=== PATIENT | male | born 1990 | race Caucasian/White ===

== ENCOUNTER 2017-08-15 19:19 | Inpatient (IN) ==
[~2017-08-15 19:19] MED LIST: *HR* Etomidate 40 MG/20 ML VIAL IVP ONE; *HR* Midazolam HCl 5 MG/5 ML VIAL IVP ONE; *HR* Succinylcholine 200 MG/10 ML VIAL IVP ONE
[2017-08-15] MEDS ORDERED: 0.9 % Sodium Chloride 2,000 ML ONE (19:28)
[2017-08-15] MEDS ORDERED: Propofol 500 MG/50 ML INFUS..BTL ONE ×2 (19:36→22:58)
[2017-08-15] MEDS ORDERED: *HR* LORazepam 2 MG/ML VIAL ONE ×2 (19:51→20:44)
--- NOTE | 2017-08-15 19:58 | Emergency Department Note ---
Overdose - [facility] Narrative Medical decision making narrative: Patient presented with acute altered mental status. Patient was supposedly in a drug bust earlier today. No notable ingestion for law enforcement however ingestion of unknown substance possibly occurred. Patient was intubated upon arrival after a GCS of 3. Patient presented more with a sympathomimetic toxidrome cocaine and methamphetamines were high on the differential. Patient was diaphoretic tachycardic hyperthermic and hypotensive. Patient's pupillary exam revealed a mid dilated pupils which were minimally reactive. Patient received 4 L of crystalloid total and transition to twice maintenance IV rate. Patient's pharyngeal includes infectious versus metabolic versus substance abuse. Patient was covered with meningitic dosing of antibiotics, antivirals as well as steroids. Patient was also given IV Tylenol. Patient was given multiple doses of benzodiazepines. Ultimately the patient was on low-dose propofol drip. Multiple attempts were unsuccessful at Baird catheter placement and urology was at bedside to provide cystoscopic view and passed a Baird catheter. Patient did get a right internal jugular central venous line placed due to the excessive resuscitation. Patient will also need a head CT however spoke with the hospitalist who accepted the patient. Patient urine drug screen did come back for methamphetamine and marijuana. Patient also positive for benzodiazepines however that was possibly administered during this ED stay. - Lab Data Lab results reviewed: Yes I reviewed the patient's lab results. Result diagrams: 08/15/17 19:41 08/15/17 19:41 Lab Results 08/15/17 08/15/17 08/15/17 Range/Units 19:41 19:41 19:41 WBC 16.2 H (4.3-11.1) K/mcL RBC 5.28 (4.19-5.50) M/mcL Hgb 15.2 (12.9-16.9) g/dL Hct 47.2 (37.5-50.1) % MCV 89.4 (83.0-100.0) fL MCH 28.8 (28.0-33.3) pg MCHC 32.2 (31.6-35.5) g/dL RDW 12.6 (11.5-14.5) % Plt Count 333 (140-400) K/mcL MPV 11.2 (9.4-12.4) fL Immature Gran % 3.1 (0-4) % Seg Neutrophils % 77.2 % Lymphocytes % 13.5 % Monocytes % 5.5 % Eosinophils % 0.1 % Basophils % 0.6 % Neutrophils # 12.5 H (1.6-8.9) K/mcL Lymphocytes # 2.2 (0.6-4.6) K/mcL Monocytes # 0.9 (0.0-1.3) K/mcL Eosinophils # 0.0 (0.0-0.6) K/mcL Basophils # 0.1 (0.0-0.2) K/mcL PT (9.4-12.1) Seconds INR APTT (26.0-36.0) Seconds ABG pH (7.32-7.45) pH Units ABG pCO2 (35-45) mmHg ABG pO2 (85-104) mmHg ABG HCO3 (21-27) mEq/L ABG Total CO2 (20-26) mEq/L ABG O2 Saturation (95-98) % ABG Base Excess (-2 to 3) mEq/L Respiration Rate O2 Delivery Device Blood Gas Modality Inspired O2 (1-15=lpm [id number]=%) Tidal Volume cc PEEP cm H2O Sodium 144 (136-145) mEq/L Potassium 5.1 (3.5-5.1) mEq/L Chloride 99 (98-107) mEq/L Carbon Dioxide 20 L (23-29) mEq/L BUN 26 H (6-20) mg/dL Creatinine 2.09 H (0.70-1.30) mg/dL Est GFR ( Amer) 47 L (> 60) Est GFR (Non-Af Amer) 39 L (> 60) BUN/Creatinine Ratio 12 (6-26) Glucose 91 (70-105) mg/dL Calculated Osmolality 302 H (280-300) Lactic Acid (0.5-2.2) mmol/L Calcium 10.1 (8.6-10.3) mg/dL Total Bilirubin 0.4 (0.3-1.0) mg/dL Direct Bilirubin 0.1 (0.0-0.2) mg/dL Indirect Bilirubin 0.3 (0.0-1.2) mg/dL AST 25 (13-39) Units/L ALT 26 (7-52) Units/L Alkaline Phosphatase 71 (34-104) Units/L Creatine Kinase 424 H (30-223) Units/L Troponin I 0.11 H* (< 0.04) ng/mL Serum Total Protein 8.4 (6.4-8.9) g/dL Albumin 5.1 (3.5-5.7) g/dL Globulin 3.3 (2.4-3.5) g/dL Albumin/Globulin Ratio 1.5 (1.1-2.2) Ur Specimen Adequacy Urine Color (Yellow) Urine Clarity (Clear) Urine pH (5.0-8.0) pH Units Ur Specific [place] (1.010-1.025) Urine Protein (Neg-Trace) mg/dL Urine Glucose (UA) (Normal) mg/dL Urine Ketones (Negative) mg/dL Urine Blood (Negative) Urine Nitrite (Negative) Urine Bilirubin (Negative) Urine Urobilinogen (Normal) mg/dL Ur Leukocyte Esterase (Negative) Urine Microscopic RBC (0-3) per hpf Urine Microscopic WBC (0-3) per hpf Urine Bacteria (None-Few) per hpf Salicylates < 5.0 L (15.0-30.0) mg/dL Urine Opiates Screen (Tpxcel=615) ng/mL Acetaminophen < 1.0 L (10-30) mcg/mL Ur Barbiturates Screen (Raohxd=952) ng/mL Ur Phencyclidine Scrn (Cutoff=25) ng/mL Ur Amphetamines Screen (Rptzfs=3833) ng/mL U Benzodiazepines Scrn (Qorxec=415) ng/mL Urine Cocaine Screen (Cutoff= 300) ng/mL U Marijuana (THC) Screen (Cutoff = 50) ng/mL Ethyl Alcohol < 10 (0-10) mg/dL 08/15/17 08/15/17 08/15/17 Range/Units 19:41 20:03 20:15 WBC (4.3-11.1) K/mcL RBC (4.19-5.50) M/mcL Hgb (12.9-16.9) g/dL Hct (37.5-50.1) % MCV (83.0-100.0) fL MCH (28.0-33.3) pg MCHC (31.6-35.5) g/dL RDW (11.5-14.5) % Plt Count (140-400) K/mcL MPV (9.4-12.4) fL Immature Gran % (0-4) % Seg Neutrophils % % Lymphocytes % % Monocytes % % Eosinophils % % Basophils % % Neutrophils # (1.6-8.9) K/mcL Lymphocytes # (0.6-4.6) K/mcL Monocytes # (0.0-1.3) K/mcL Eosinophils # (0.0-0.6) K/mcL Basophils # (0.0-0.2) K/mcL PT 13.2 H (9.4-12.1) Seconds INR 1.2 APTT 25.9 L (26.0-36.0) Seconds ABG pH 7.28 L (7.32-7.45) pH Units ABG pCO2 47 H (35-45) mmHg ABG pO2 67 L (85-104) mmHg ABG HCO3 22 (21-27) mEq/L ABG Total CO2 23 (20-26) mEq/L ABG O2 Saturation 90 L (95-98) % ABG Base Excess -5 L (-2 to 3) mEq/L Respiration Rate 14 O2 Delivery Device Adult Vent Blood Gas Modality ASSIST CONTROL Inspired O2 60.0 (1-15=lpm [id number]=%) Tidal Volume 550 cc PEEP 5 cm H2O Sodium (136-145) mEq/L Potassium (3.5-5.1) mEq/L Chloride (98-107) mEq/L Carbon Dioxide (23-29) mEq/L BUN (6-20) mg/dL Creatinine (0.70-1.30) mg/dL Est GFR ( Amer) (> 60) Est GFR (Non-Af Amer) (> 60) BUN/Creatinine Ratio (6-26) Glucose (70-105) mg/dL Calculated Osmolality (280-300) Lactic Acid 9.6 H* (0.5-2.2) mmol/L Calcium (8.6-10.3) mg/dL Total Bilirubin (0.3-1.0) mg/dL Direct Bilirubin (0.0-0.2) mg/dL Indirect Bilirubin (0.0-1.2) mg/dL AST (13-39) Units/L ALT (7-52) Units/L Alkaline Phosphatase (34-104) Units/L Creatine Kinase (30-223) Units/L Troponin I (< 0.04) ng/mL Serum Total Protein (6.4-8.9) g/dL Albumin (3.5-5.7) g/dL Globulin (2.4-3.5) g/dL Albumin/Globulin Ratio (1.1-2.2) Ur Specimen Adequacy Urine Color (Yellow) Urine Clarity (Clear) Urine pH (5.0-8.0) pH Units Ur Specific [place] (1.010-1.025) Urine Protein (Neg-Trace) mg/dL Urine Glucose (UA) (Normal) mg/dL Urine Ketones (Negative) mg/dL Urine Blood (Negative) Urine Nitrite (Negative) Urine Bilirubin (Negative) Urine Urobilinogen (Normal) mg/dL Ur Leukocyte Esterase (Negative) Urine Microscopic RBC (0-3) per hpf Urine Microscopic WBC (0-3) per hpf Urine Bacteria (None-Few) per hpf Salicylates (15.0-30.0) mg/dL Urine Opiates Screen (Gvvgwu=778) ng/mL Acetaminophen (10-30) mcg/mL Ur Barbiturates Screen (Aetyun=867) ng/mL Ur Phencyclidine Scrn (Cutoff=25) ng/mL Ur Amphetamines Screen (Ysrcla=3380) ng/mL U Benzodiazepines Scrn (Tdirwz=968) ng/mL Urine Cocaine Screen (Cutoff= 300) ng/mL U Marijuana (THC) Screen (Cutoff = 50) ng/mL Ethyl Alcohol (0-10) mg/dL 08/15/17 08/15/17 Range/Units 22:14 22:14 WBC (4.3-11.1) K/mcL RBC (4.19-5.50) M/mcL Hgb (12.9-16.9) g/dL Hct (37.5-50.1) % MCV (83.0-100.0) fL MCH (28.0-33.3) pg MCHC (31.6-35.5) g/dL RDW (11.5-14.5) % Plt Count (140-400) K/mcL MPV (9.4-12.4) fL Immature Gran % (0-4) % Seg Neutrophils % % Lymphocytes % % Monocytes % % Eosinophils % % Basophils % % Neutrophils # (1.6-8.9) K/mcL Lymphocytes # (0.6-4.6) K/mcL Monocytes # (0.0-1.3) K/mcL Eosinophils # (0.0-0.6) K/mcL Basophils # (0.0-0.2) K/mcL PT (9.4-12.1) Seconds INR APTT (26.0-36.0) Seconds ABG pH (7.32-7.45) pH Units ABG pCO2 (35-45) mmHg ABG pO2 (85-104) mmHg ABG HCO3 (21-27) mEq/L ABG Total CO2 (20-26) mEq/L ABG O2 Saturation (95-98) % ABG Base Excess (-2 to 3) mEq/L Respiration Rate O2 Delivery Device Blood Gas Modality Inspired O2 (1-15=lpm qd45-019=%) Tidal Volume cc PEEP cm H2O Sodium (136-145) mEq/L Potassium (3.5-5.1) mEq/L Chloride (98-107) mEq/L Carbon Dioxide (23-29) mEq/L BUN (6-20) mg/dL Creatinine (0.70-1.30) mg/dL Est GFR ( Amer) (> 60) Est GFR (Non-Af Amer) (> 60) BUN/Creatinine Ratio (6-26) Glucose (70-105) mg/dL Calculated Osmolality (280-300) Lactic Acid (0.5-2.2) mmol/L Calcium (8.6-10.3) mg/dL Total Bilirubin (0.3-1.0) mg/dL Direct Bilirubin (0.0-0.2) mg/dL Indirect Bilirubin (0.0-1.2) mg/dL AST (13-39) Units/L ALT (7-52) Units/L Alkaline Phosphatase (34-104) Units/L Creatine Kinase (30-223) Units/L Troponin I (< 0.04) ng/mL Serum Total Protein (6.4-8.9) g/dL Albumin (3.5-5.7) g/dL Globulin (2.4-3.5) g/dL Albumin/Globulin Ratio (1.1-2.2) Ur Specimen Adequacy Urine Color Red A (Yellow) Urine Clarity Cloudy A (Clear) Urine pH 6.0 (5.0-8.0) pH Units Ur Specific [place] 1.024 (1.010-1.025) Urine Protein 100 H (Neg-Trace) mg/dL Urine Glucose (UA) Normal (Normal) mg/dL Urine Ketones Negative (Negative) mg/dL Urine Blood Large H (Negative) Urine Nitrite Negative (Negative) Urine Bilirubin Negative (Negative) Urine Urobilinogen Normal (Normal) mg/dL Ur Leukocyte Esterase Small H (Negative) Urine Microscopic RBC TNTC H (0-3) per hpf Urine Microscopic WBC 0-3 (0-3) per hpf Urine Bacteria Few (None-Few) per hpf Salicylates (15.0-30.0) mg/dL Urine Opiates Screen Negative (Kzrdmn=547) ng/mL Acetaminophen (10-30) mcg/mL Ur Barbiturates Screen Negative (Vbouyw=560) ng/mL Ur Phencyclidine Scrn Negative (Cutoff=25) ng/mL Ur Amphetamines Screen Positive H (Lolfdl=4677) ng/mL U Benzodiazepines Scrn Positive H (Yayzly=204) ng/mL Urine Cocaine Screen Negative (Cutoff= 300) ng/mL U Marijuana (THC) Screen Positive H (Cutoff = 50) ng/mL Ethyl Alcohol (0-10) mg/dL - Radiology Data Radiology results reviewed: Yes I reviewed the patient's radiology results. KUB X-Ray 08/15/17 19:58 IMPRESSION: 1. Endotracheal tube tip is in the expected location, superimposed over the mid trachea. 2. Nasogastric tube tip is in the expected location, superimposed over the gastric antrum. However, the side port is at the level the gastroesophageal junction. For more optimal placement, nasogastric tube should be advanced approximately 3-4 cm to ensure that the side port is inferior to the GE junction. D/ / Elder Sierra MD / Elder Sierra MD Interpreting Provider: Elder Sierra MD Chest X-Ray 08/15/17 21:21 IMPRESSION: A right internal jugular venous catheter has been placed in good position. Nasogastric tube is now in good position. D/ / Case Schuster MD / Case Schuster MD Interpreting Provider: Case Schuster MD - EKG Data EKG attestation: Yes I reviewed and interpreted this EKG. EKG shows normal: sinus rhythm Rate: tachycardia [place]/QRS: normal When compared to previous EKG there are: changes noted Interpretation: nonspecific ST-T wave changes Overdose HPI - General Chief Complaint: ED Overdose Stated Complaint: "OD" Source: EMS, police Mode of arrival: EMS Limitations: altered mental status Nursing Notes Reviewed: Yes Vital Signs Reviewed: Yes - History of Present Illness HPI Narrative: 27-year-old male presents via EMS for altered mental status. Much of the history provided by law enforcement as well as EMS. Patient was arrested on drug raid earlier today. Patient was in gen pop and started have and acute alteration in mental status. On ED presentation the patient was altered with a GCS of 3. Patient's glucose is normal. Patient was intubated upon ED arrival given his low GCS and concerns for airway protection. Patient exhibited no external signs of trauma. There is no family or friends at bedside to provide additional history. Concerns the patient did ingest something while in police custody. - Related Data Previous Rx's Medication Instructions Recorded Ibuprofen [Motrin] 800 mg PO Q6-8H PRN #30 tablet 01/30/16 Tamsulosin [Flomax] 0.4 mg PO DAILY #5 capsule 01/30/16 cephALEXin [Keflex] 500 mg PO TID #21 capsule 01/30/16 Amoxicillin/Clavulanate [Augmentin] 875 mg PO BID #14 tablet 05/09/16 Allergies Allergy/AdvReac Type Severity Reaction Status Date / Time No Known Allergies Allergy Verified 05/09/16 04:47 Limitations: ROS unobtainable due to patients medical condition Past Medical History - Past Medical History Source: unable to obtain Medical history: Reports: non-contributory Surgical history: Reports: no surgical history Psychiatric history: Reports: ADHD - Social History Smoking Status: Current every day smoker Smokeless Tobacco Status: Yes Alcohol use: Reports: occasionally Drug use: Reports: none Physical Exam - General Limitations: altered mental status General appearance: in distress - Head Head exam: atraumatic, normocephalic, normal inspection - Eye Eye exam: Present: PERRL. Absent: miosis, mydriasis - ENT ENT exam: normal exam, mucous membranes moist, other (Mucous ) - Neck Neck exam: Present: normal inspection - Chest Chest inspection: Present: normal inspection - Respiratory Respiratory exam: Present: prolonged expiratory phase - Cardiovascular Cardiovascular exam: Present: tachycardia. Absent: systolic murmur - Abdominal Exam Abdominal exam: Present: soft - Extremities Exam Extremities exam: Present: normal inspection. Absent: pedal edema - Back Exam Back exam: Present: normal inspection - Expanded Neurological Exam Coma Scale Eye Opening: None Coma Scale Motor Response: None Coma Scale Verbal Response: None Coma Scale Total: 3 - Skin Skin exam: Present: warm, normal color, diaphoresis Course Course Narrative: Patient seen and examined. EMS as well as long for some report that the patient was arrested on a drug bust. Law enforcment note that he possibly ingested or stuffed a drug. - Reevaluation(s) Reevaluation #1: Patient was given total 5 mg of Versed 4 mg of Ativan. Patient is currently on his 4 L of crystalloid. Time: 20:29 Reevaluation #2: Given the patient's lab findings the patient will be covered with broad- spectrum antibiotics. Patient will be given meningitic dosing of vancomycin and Rocephin. Patient will also be given Zosyn. Patient is not currently stable to perform a lumbar puncture. Patient had a rectal temperature of 105 degrees. Patient was ordered IV Tylenol. Time: 20:35 Vital Signs Pulse Rate 154 08/15/17 19:19 Respiratory Rate 25 08/15/17 19:19 Blood Pressure 85/49 08/15/17 19:19 O2 Sat by Pulse Oximetry 89 08/15/17 19:19 Temperature 102.1 F H 08/15/17 19:40 Pulse Rate 124 08/15/17 22:36 Respiratory Rate 20 08/15/17 22:36 Blood Pressure 103/64 08/15/17 22:36 O2 Sat by Pulse Oximetry 98 08/15/17 22:36 Oxygen Delivery Oxygen Delivery Ventilator Procedures - Intubation Time out performed: No sedative: Etomidate Mg Given: 20 paralytic: Succinylcholine Mg Given: 110 Laryngoscope: Yusuf ET Tube Size: 7.5 ET Tube Uncuffed: Yes Tube Secured Depth (cm): 23 Tube Secured Location: lips Tube Placement Confirmation: visualized tube passing through cords, equal breath sounds bilaterally, no breath sounds over epigastrium, confirmation by capnometry Patient Tolerated Procedure: well Intubation Complications: none Disposition Clinical Impression: Substance abuse, Elevated troponin, Septic shock Disposition: Admitted As Inpatient Condition: Critical Referrals: NONE,PCP [Primary Care Provider] - Forms: ED Satisfaction Letter Time of Disposition: 22:18 SMal - Adam Situation: Demographics Background: Presenting Complaint Assessment: Vital Signs, Course and respsone to treatment, Patient/Family Expectation Recommendation: Barrier(s) to disposition, Recommendation based on pending studies, treatments, or consults S.[email or web address].RMarcela Report Given to: Dr. Francisco Medina Repor Time: 22:16
[2017-08-15 20:04] LABS: Basophils # 0.1 K/mcL (0.0-0.2); Basophils % 0.6 %; Eosinophils % 0.1 %; Hematocrit 47.2 % (37.5-50.1); Hemoglobin 15.2 g/dL (12.9-16.9); Immature Granulocytes % 3.1 % (0-4); Lymphocytes # 2.2 K/mcL (0.6-4.6); Lymphocytes % 13.5 %; Mean Corpuscular HGB Conc 32.2 g/dL (31.6-35.5); Mean Corpuscular Hemoglobin 28.8 pg (28.0-33.3); Mean Corpuscular Volume 89.4 fL (83.0-100.0); Mean Platelet Volume 11.2 fL (9.4-12.4); Monocytes # 0.9 K/mcL (0.0-1.3); Monocytes % 5.5 %; Neutrophils # 12.5 K/mcL (1.6-8.9); Platelet Count 333 K/mcL (140-400); Red Blood Count 5.28 M/mcL (4.19-5.50); Red Cell Distribution Width 12.6 % (11.5-14.5); Segmented Neutrophils % 77.2 %
[2017-08-15] MEDS ORDERED: 0.9 % Sodium Chloride 1,000 ML IVC ONE ×2 (20:04→20:16)
[2017-08-15 20:11] LABS: Alanine Aminotransferase 26 Units/L (7-52); Albumin 5.1 g/dL (3.5-5.7); Albumin/Globulin Ratio 1.5 (1.1-2.2); Alkaline Phosphatase 71 Units/L (34-104); Aspartate Amino Transferase 25 Units/L (13-39); BUN/Creatinine Ratio 12 (6-26); Bilirubin,Direct 0.1 mg/dL (0.0-0.2); Bilirubin,Indirect 0.3 mg/dL (0.0-1.2); Bilirubin,Total 0.4 mg/dL (0.3-1.0); Blood Urea Nitrogen 26 mg/dL (6-20); Calcium 10.1 mg/dL (8.6-10.3); Carbon Dioxide 20 mEq/L (23-29); Chloride 99 mEq/L (98-107); Globulin 3.3 g/dL (2.4-3.5); Glucose 91 mg/dL (70-105); Osmolality,Calculated 302 (280-300); Potassium 5.1 mEq/L (3.5-5.1); Sodium 144 mEq/L (136-145); Total Protein 8.4 g/dL (6.4-8.9); eGFR For African Americans 47 (> 60); eGFR For Non-African Americans 39 (> 60)
[2017-08-15 20:18] LABS: ABG Base Excess -5 mEq/L (-2 to 3); ABG HCO3 22 mEq/L (21-27); ABG Oxygen Saturation 90 % (95-98); ABG PCO2 47 mmHg (35-45); ABG PH 7.28 pH Units (7.32-7.45); ABG PO2 67 mmHg (85-104); ABG TCO2 23 mEq/L (20-26); Blood Gas Modality ASSIST CONTROL; Blood Gas PEEP 5 cm H2O; Blood Gas Respiration Rate 14; Blood Gas VT 550 cc
[2017-08-15] MEDS ORDERED: Acetaminophen IV 1,000 MG/100 ML INFUS..BTL IVPB ONE (20:27)
[2017-08-15] MEDS ORDERED: Lidocaine Jelly 11 ml Syringe TP ONE (20:30)
[2017-08-15] MEDS ORDERED: Dexamethasone 4 MG/ML VIAL IVP ONE (20:34)
[2017-08-15] MEDS ORDERED: Piperacillin/Tazobactam 3.375 GM in Water for inj. (sterile) 20 ML IVP ONE (20:34)
[2017-08-15] MEDS ORDERED: Vancomycin 2,000 MG in D5% in Water 500 ML IVPB ONE (20:34)
[2017-08-15 20:48] LABS: Acetaminophen < 1.0 mcg/mL (10-30); Ethanol < 10 mg/dL (0-10); Salicylate < 5.0 mg/dL (15.0-30.0)
[2017-08-15 21:11] LABS: INR 1.2; Prothrombin Time 13.2 Seconds (9.4-12.1)
[2017-08-15 21:14] LABS: Activated Partial Thrombo Time 25.9 Seconds (26.0-36.0)
--- NOTE | 2017-08-15 22:03 | Emergency Department Note ---
Overdose - Lab Data Result diagrams: 08/15/17 19:41 08/15/17 19:41 Lab Results 08/15/17 08/15/17 08/15/17 Range/Units 19:41 19:41 19:41 WBC 16.2 H (4.3-11.1) K/mcL RBC 5.28 (4.19-5.50) M/mcL Hgb 15.2 (12.9-16.9) g/dL Hct 47.2 (37.5-50.1) % MCV 89.4 (83.0-100.0) fL MCH 28.8 (28.0-33.3) pg MCHC 32.2 (31.6-35.5) g/dL RDW 12.6 (11.5-14.5) % Plt Count 333 (140-400) K/mcL MPV 11.2 (9.4-12.4) fL Immature Gran % 3.1 (0-4) % Seg Neutrophils % 77.2 % Lymphocytes % 13.5 % Monocytes % 5.5 % Eosinophils % 0.1 % Basophils % 0.6 % Neutrophils # 12.5 H (1.6-8.9) K/mcL Lymphocytes # 2.2 (0.6-4.6) K/mcL Monocytes # 0.9 (0.0-1.3) K/mcL Eosinophils # 0.0 (0.0-0.6) K/mcL Basophils # 0.1 (0.0-0.2) K/mcL PT (9.4-12.1) Seconds INR APTT (26.0-36.0) Seconds ABG pH (7.32-7.45) pH Units ABG pCO2 (35-45) mmHg ABG pO2 (85-104) mmHg ABG HCO3 (21-27) mEq/L ABG Total CO2 (20-26) mEq/L ABG O2 Saturation (95-98) % ABG Base Excess (-2 to 3) mEq/L Respiration Rate O2 Delivery Device Blood Gas Modality Inspired O2 (1-15=lpm [id number]=%) Tidal Volume cc PEEP cm H2O Sodium 144 (136-145) mEq/L Potassium 5.1 (3.5-5.1) mEq/L Chloride 99 (98-107) mEq/L Carbon Dioxide 20 L (23-29) mEq/L BUN 26 H (6-20) mg/dL Creatinine 2.09 H (0.70-1.30) mg/dL Est GFR ( Amer) 47 L (> 60) Est GFR (Non-Af Amer) 39 L (> 60) BUN/Creatinine Ratio 12 (6-26) Glucose 91 (70-105) mg/dL Calculated Osmolality 302 H (280-300) Lactic Acid (0.5-2.2) mmol/L Calcium 10.1 (8.6-10.3) mg/dL Total Bilirubin 0.4 (0.3-1.0) mg/dL Direct Bilirubin 0.1 (0.0-0.2) mg/dL Indirect Bilirubin 0.3 (0.0-1.2) mg/dL AST 25 (13-39) Units/L ALT 26 (7-52) Units/L Alkaline Phosphatase 71 (34-104) Units/L Troponin I 0.11 H* (< 0.04) ng/mL Serum Total Protein 8.4 (6.4-8.9) g/dL Albumin 5.1 (3.5-5.7) g/dL Globulin 3.3 (2.4-3.5) g/dL Albumin/Globulin Ratio 1.5 (1.1-2.2) Salicylates < 5.0 L (15.0-30.0) mg/dL Acetaminophen < 1.0 L (10-30) mcg/mL Ethyl Alcohol < 10 (0-10) mg/dL 08/15/17 08/15/17 08/15/17 Range/Units 19:41 20:03 20:15 WBC (4.3-11.1) K/mcL RBC (4.19-5.50) M/mcL Hgb (12.9-16.9) g/dL Hct (37.5-50.1) % MCV (83.0-100.0) fL MCH (28.0-33.3) pg MCHC (31.6-35.5) g/dL RDW (11.5-14.5) % Plt Count (140-400) K/mcL MPV (9.4-12.4) fL Immature Gran % (0-4) % Seg Neutrophils % % Lymphocytes % % Monocytes % % Eosinophils % % Basophils % % Neutrophils # (1.6-8.9) K/mcL Lymphocytes # (0.6-4.6) K/mcL Monocytes # (0.0-1.3) K/mcL Eosinophils # (0.0-0.6) K/mcL Basophils # (0.0-0.2) K/mcL PT 13.2 H (9.4-12.1) Seconds INR 1.2 APTT 25.9 L (26.0-36.0) Seconds ABG pH 7.28 L (7.32-7.45) pH Units ABG pCO2 47 H (35-45) mmHg ABG pO2 67 L (85-104) mmHg ABG HCO3 22 (21-27) mEq/L ABG Total CO2 23 (20-26) mEq/L ABG O2 Saturation 90 L (95-98) % ABG Base Excess -5 L (-2 to 3) mEq/L Respiration Rate 14 O2 Delivery Device Adult Vent Blood Gas Modality ASSIST CONTROL Inspired O2 60.0 (1-15=lpm kb88-707=%) Tidal Volume 550 cc PEEP 5 cm H2O Sodium (136-145) mEq/L Potassium (3.5-5.1) mEq/L Chloride (98-107) mEq/L Carbon Dioxide (23-29) mEq/L BUN (6-20) mg/dL Creatinine (0.70-1.30) mg/dL Est GFR ( Amer) (> 60) Est GFR (Non-Af Amer) (> 60) BUN/Creatinine Ratio (6-26) Glucose (70-105) mg/dL Calculated Osmolality (280-300) Lactic Acid 9.6 H* (0.5-2.2) mmol/L Calcium (8.6-10.3) mg/dL Total Bilirubin (0.3-1.0) mg/dL Direct Bilirubin (0.0-0.2) mg/dL Indirect Bilirubin (0.0-1.2) mg/dL AST (13-39) Units/L ALT (7-52) Units/L Alkaline Phosphatase (34-104) Units/L Troponin I (< 0.04) ng/mL Serum Total Protein (6.4-8.9) g/dL Albumin (3.5-5.7) g/dL Globulin (2.4-3.5) g/dL Albumin/Globulin Ratio (1.1-2.2) Salicylates (15.0-30.0) mg/dL Acetaminophen (10-30) mcg/mL Ethyl Alcohol (0-10) mg/dL Overdose HPI - General Chief Complaint: ED Overdose Stated Complaint: "OD" Source: EMS, police Mode of arrival: EMS Limitations: altered mental status Nursing Notes Reviewed: Yes Vital Signs Reviewed: Yes - History of Present Illness HPI Narrative: This is a procedure note for central line see Dr. Boyd note for patient information and workup. - Related Data Previous Rx's Medication Instructions Recorded Ibuprofen [Motrin] 800 mg PO Q6-8H PRN #30 tablet 01/30/16 Tamsulosin [Flomax] 0.4 mg PO DAILY #5 capsule 01/30/16 cephALEXin [Keflex] 500 mg PO TID #21 capsule 01/30/16 Amoxicillin/Clavulanate [Augmentin] 875 mg PO BID #14 tablet 05/09/16 Allergies Allergy/AdvReac Type Severity Reaction Status Date / Time No Known Allergies Allergy Verified 05/09/16 04:47 Past Medical History - Past Medical History Medical history: Reports: non-contributory Surgical history: Reports: no surgical history Psychiatric history: Reports: ADHD - Social History Smoking Status: Current every day smoker Smokeless Tobacco Status: Yes Alcohol use: Reports: occasionally Drug use: Reports: none Physical Exam - General Limitations: altered mental status General appearance: in distress Course Vital Signs Pulse Rate 154 08/15/17 19:19 Respiratory Rate 25 08/15/17 19:19 Blood Pressure 85/49 08/15/17 19:19 O2 Sat by Pulse Oximetry 89 08/15/17 19:19 Temperature 102.1 F H 08/15/17 19:40 Pulse Rate 154 08/15/17 19:40 Respiratory Rate 38 08/15/17 20:17 Blood Pressure 85/49 08/15/17 19:40 O2 Sat by Pulse Oximetry 100 08/15/17 20:17 Oxygen Delivery Oxygen Delivery Nasal Cannula Procedures - Central Line Placement Right IJ Central Line Inserted*: Yes Central Line Catheter Replacement*: Yes Central Line Insertion: elective, emergent Procedural Pause: verify patient name and date of , timeout performed per policy, rehana and assess the site, assemble equipment and verify supplies, perform hand hygiene Patient Placed on Monitor/Pulse Ox: Yes During the Procedure: clinician is wearing sterile gloves, cap, mask,& gown during insertion, sterile field and sterile technique are maintained, patient's face is covered with drape or mask and wearing a cap, everyone in room is wearing a mask Central Line Lumen Inserted: triple Post Procedure: sutured in place, good blood return, all ports aspirated, flushed, capped, sterile dressing applied, guide wire removed and visualized, dressing is dated Post Procedure X-Ray: tip of catheter in good position, no pneumothorax seen Patient Tolerated Procedure: no complications Complications: none Name of Clinician Inserting Central Line: Raheel Schafer DO Clinician Assisting/Completing Checklist: Phong Villanueva DO Date: 08/15/17 Time: 21:40 Disposition Clinical Impression: Substance abuse Disposition: Admitted As Inpatient Condition: Critical Referrals: NONE,PCP [Primary Care Provider] - Forms: ED Satisfaction Letter Time of Disposition: 22:04
--- NOTE | 2017-08-15 22:21 | Urology - Consult Note ---
Date of Encounter: 08/15/17 Time of Encounter: 22:18 - Assessment and Plan (1) Urethral stricture Current Visit: Yes Status: Acute Assessment and plan: 27-year-old man with an anterior urethral stricture status post cystoscopy, urethral dilation, and catheter placement. I recommend leaving the catheter in place for at least 2 weeks to allow the urethra to heal from the false passage previously created. The emergency department team resumed care. I will follow along while he is in the hospital. 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 He was brought to the ER. He was then intubated. An attempt was made at placing a catheter which was not successful. Other attempts were made with different size catheters and these were not successful as well. I was consulted to place a Baird catheter in order to obtain a urine sample for further management. Past Med Surg Social Fam HX - Past Medical History Medical history: non-contributory Psychiatric history: ADHD - Past Surgical History Surgical History: no surgical history - Social History Smoking Status: Current every day smoker Smokeless Tobacco Status: Yes Alcohol use: occasionally Drug use: none Medications and Allergies Ibuprofen [Motrin] 800 mg PO Q6-8H PRN #30 tablet 01/30/16 [Rx] Tamsulosin [Flomax] 0.4 mg PO DAILY #5 capsule 01/30/16 [Rx] cephALEXin [Keflex] 500 mg PO TID #21 capsule 01/30/16 [Rx] Amoxicillin/Clavulanate [Augmentin] 875 mg PO BID #14 tablet 05/09/16 [Rx] 3 Allergy/AdvReac Type Severity Reaction Status Date / Time No Known Allergies Allergy Verified 05/09/16 04:47 Review of Systems ROS unobtainable: due to mental status Exam Initial Vital Signs Pulse Resp BP Pulse Ox 154 25 85/49 89 08/15/17 19:19 08/15/17 19:19 08/15/17 19:19 08/15/17 19:19 - General physical appearance Present: other (intubated, sedate) - Respiratory Present: other (ET tube in place) - Cardiovascular Cardiovascular exam IM: RRR - Abdomen Abdomen: Present: soft - Genitourinary other (Blood at meatus. Circumcised penis. Normal testicles bilaterally.) Urology Results - Labs 08/15/17 19:41 08/15/17 19:41 Abnormal lab results WBC 16.2 K/mcL (4.3-11.1) H 08/15/17 19:41 Neutrophils # 12.5 K/mcL (1.6-8.9) H 08/15/17 19:41 PT 13.2 Seconds (9.4-12.1) H 08/15/17 19:41 APTT 25.9 Seconds (26.0-36.0) L 08/15/17 19:41 ABG pH 7.28 pH Units (7.32-7.45) L 08/15/17 20:15 ABG pCO2 47 mmHg (35-45) H 08/15/17 20:15 ABG pO2 67 mmHg (85-104) L 08/15/17 20:15 ABG O2 Saturation 90 % (95-98) L 08/15/17 20:15 ABG Base Excess -5 mEq/L (-2 to 3) L 08/15/17 20:15 Carbon Dioxide 20 mEq/L (23-29) L 08/15/17 19:41 BUN 26 mg/dL (6-20) H 08/15/17 19:41 Creatinine 2.09 mg/dL (0.70-1.30) H 08/15/17 19:41 Est GFR ( Amer) 47 (> 60) L 08/15/17 19:41 Est GFR (Non-Af Amer) 39 (> 60) L 08/15/17 19:41 Calculated Osmolality 302 (280-300) H 08/15/17 19:41 Lactic Acid 9.6 mmol/L (0.5-2.2) H* 08/15/17 20:03 Troponin I 0.11 ng/mL (< 0.04) H* 08/15/17 19:41 Salicylates < 5.0 mg/dL (15.0-30.0) L 08/15/17 19:41 Acetaminophen < 1.0 mcg/mL (10-30) L 08/15/17 19:41 Diabetes panel 08/15/17 Range/Units 19:41 Sodium 144 (136-145) mEq/L Potassium 5.1 (3.5-5.1) mEq/L Chloride 99 (98-107) mEq/L Carbon Dioxide 20 L (23-29) mEq/L BUN 26 H (6-20) mg/dL Creatinine 2.09 H (0.70-1.30) mg/dL Glucose 91 (70-105) mg/dL Calcium 10.1 (8.6-10.3) mg/dL AST 25 (13-39) Units/L ALT 26 (7-52) Units/L Alkaline Phosphatase 71 (34-104) Units/L Albumin 5.1 (3.5-5.7) g/dL Calcium panel 08/15/17 Range/Units 19:41 Calcium 10.1 (8.6-10.3) mg/dL Albumin 5.1 (3.5-5.7) g/dL Pituitary panel 08/15/17 Range/Units 19:41 Sodium 144 (136-145) mEq/L Potassium 5.1 (3.5-5.1) mEq/L Chloride 99 (98-107) mEq/L Carbon Dioxide 20 L (23-29) mEq/L BUN 26 H (6-20) mg/dL Creatinine 2.09 H (0.70-1.30) mg/dL Glucose 91 (70-105) mg/dL Calcium 10.1 (8.6-10.3) mg/dL Adrenal panel 08/15/17 Range/Units 19:41 Sodium 144 (136-145) mEq/L Potassium 5.1 (3.5-5.1) mEq/L Chloride 99 (98-107) mEq/L Carbon Dioxide 20 L (23-29) mEq/L BUN 26 H (6-20) mg/dL Creatinine 2.09 H (0.70-1.30) mg/dL Glucose 91 (70-105) mg/dL Calcium 10.1 (8.6-10.3) mg/dL Total Bilirubin 0.4 (0.3-1.0) mg/dL AST 25 (13-39) Units/L ALT 26 (7-52) Units/L Alkaline Phosphatase 71 (34-104) Units/L Albumin 5.1 (3.5-5.7) g/dL All other labs normal. Procedures:Urology - Catheter Insertion (Urinary) Additional comments: Under sterile conditions I attempted to place a 16 Italian coud tipped catheter. This did not pass. I attempted to place a wire and resistance was met. At this point I felt it would be best perform a cystoscopy. The flexible cystoscope was introduced. There was a false passage in the urethra extending anteriorly and to the right lateral aspect of the penis. A wire was placed through the true lumen of the urethra and brought into the bladder. The scope was removed. A 5 Italian open-ended catheter was placed over the wire into the bladder. Bloody urine returned after the wire was removed. The wire was replaced. I then dilated the urethra to 16 Italian. A 16 Italian Baird catheter was in place over the wire into the bladder. Urine returned. The wire was removed. 10 mL was instilled into the balloon. The catheter was left to drainage. Consult Discharge Plan - Plan Referrals: NONE,PCP [Primary Care Provider] -
--- NOTE | 2017-08-15 22:24 | Emergency Department Note ---
START Narrative - START START: I examined this patient and my medical decision-making was reviewed with the Resident Physician. I agree with the documented findings, disposition and treatment plan as described except to the extent set forth below. 27-year-old male presented to the emergency room for unresponsiveness. Patient was brought in by local [facility] employees. Patient apparently was arrested earlier today for drug problems. At some point during his stay at that facility he became unresponsive and combative. The EMS was brought to the scene and noted him to be extremely combative at times. They had concerns that he might have ingested something. It is unclear at this time as it is a limited history secondary to the patient's condition. Upon arrival, patient had a low GCS less than 8. He had no spontaneous eye opening. No pain to sternal rub. No sensible sounds. We gave him a GCS of 3- 4. He also started to have a temperature of 105 rectally. He was very diaphoretic as well. We elected to intubate him emergently using rapid sequence intubation. There are no complications to this procedure. Patient was assumed to be septic as he was hypotensive, tachycardic with a high fever. Unclear as to the etiology of this fever. He was given Tylenol through the IV. His chest x-ray did not reveal any pneumonia. We are awaiting his urinalysis result. Patient could have a meningitis. We did cover him with a meningitis dose of antibiotics including Decadron. Patient was too unstable at this time to get another lumbar puncture. He had received at least 4 L of fluid. His blood pressure improved to over 100. His heart rate did come down slightly with the fever control. After the Tylenol he still remained febrile with a temperature of 102. He had packed given some ice as well some cool fans as well. He had a lactic acidosis as well. It is unclear if the patient is septic or if he ingested some unknown substance that may have caused him to present like sepsis. Patient will be admitted to the ICU. Patient also had a right IJ central line placed under my supervision without any complications. This was done by the resident. We did have problems getting a Baird catheter in the patient. We had to call Dr. Laughlin with urology and to the ER to place a Baird catheter. Dr. Laughlin was able to get a Baird catheter placed successfully. Patient's possible toxidrome was treated with Ativan as well as the initial dose of Versed. Total critical care time was 60 minutes. This time was spent in medical resuscitation of possible sepsis versus toxidrome as well as consultation with urology.
[2017-08-15 22:25] LABS: Creatine Kinase 424 Units/L (30-223)
[2017-08-15 22:28] LABS: Amphetamine Screen,Urine Positive ng/mL (Cutoff=1000); Barbiturate Screen,Urine Negative ng/mL (Cutoff=200); Benzodiazepines Screen,Urine Positive ng/mL (Cutoff=200); Bilirubin,Urine Negative (Negative); Blood,Urine Large (Negative); Cannabinoid Screen,Urine Positive ng/mL (Cutoff = 50); Clarity,Urine Cloudy (Clear); Cocaine Screen,Urine Negative ng/mL (Cutoff= 300); Color,Urine Red (Yellow); Glucose,Urine (UA) Normal (Normal); Ketones,Urine Negative (Negative); Leukocyte Esterase,Urine Small (Negative); Nitrite,Urine Negative (Negative); Opiate Screen,Urine Negative ng/mL (Cutoff=300); Phencyclidine Screen,Urine Negative ng/mL (Cutoff=25); Protein,Urine 100 mg/dL (Neg-Trace); Specific Gravity,Urine 1.024 (1.010-1.025); Urobilinogen,Urine Normal (Normal)
[2017-08-15] MEDS ORDERED: Acyclovir 800 MG in D5% in Water 250 ML IVPB ONE (22:29)
[2017-08-15 22:30] LABS: RBC,Urine TNTC per hpf (0-3); WBC,Urine 0-3 per hpf (0-3)
[2017-08-15 22:31] LABS: Bacteria,Urine Few per hpf (None-Few)
[2017-08-15] MEDS ORDERED: cefTRIAXone 2,000 MG in Water for inj. (sterile) 20 ML 20 ML IVPB ONE (23:00)
--- NOTE | 2017-08-15 23:01 | Internal Med History&Physical ---
<Kenney Triana - Last Filed: 08/15/17 23:43> Date of Encounter: 08/15/17 Time of Encounter: 22:57 Assessment and Plan (1) Respiratory failure Current visit: Yes Status: Acute Patiently subsequently intubated in the emergency department. At etiology unknown of patient's respiratory failure. Qualifiers: Chronicity: acute Respiratory failure complication: unspecified whether with hypoxia or hypercapnia Qualified Code(s): J96.00 - Acute respiratory failure, unspecified whether with hypoxia or hypercapnia (2) Shock Current visit: Yes Status: Acute The patient's systolic blood pressure has remained low prior to fluid resuscitation emergency department. He received 4 L of IV normal saline as well as maintenance of half normal saline. The patient's blood pressure has continued to be fluid responsive with a last systolic of 103. Unknown at etiology of the patient's hypotension. Concern for possible infectious versus metabolic versus toxidrome. The patient apparently had visualization of ingestion from another inmate with positive amphetamine on urine drug screen. Given the patient's hyperthermia and tachycardia this is a likely etiology of his mental status but given the hypotension, infectious versus metabolic derangements cannot be ruled out. With the patient's alteration in mentation combined with the leukocytosis, elevated lactic acid, there was concern for possible meningitis and the patient was too unstable to perform a lumbar puncture so the patient was started on IV antibiotics, acyclovir and administered steroids. We will continue to monitor the patient's response and mental status as well as trend labs including lactic acid, troponin, renal function. Urinalysis and chest x-ray demonstrated no infectious etiology of patient's symptoms. Given patient's past drug abuse, we will perform an echocardiogram to determine if there is any possible signs of endocarditis or valvular heart disease associated with infectious etiology. The patient will be continued on IV antibiotics until either de-escalation can occur or cessation of antibiotics can occur by clinical improvement. (3) Obtundation Current visit: Yes Status: Acute Multifactorial differential to include infectious, metabolic, toxidrome for at etiology of patient's mental status upon arrival to the emergency department. We will continue to monitor. Head CT demonstrates no acute abnormality. (4) Tachycardia Current visit: Yes Status: Acute Likely reactive with differential to include infectious versus toxidrome. (5) Substance abuse Current visit: Yes Status: Acute (6) Lactic acidosis Current visit: Yes Status: Acute We will continue to trend the patient's lactic acid to follow fluid resuscitation. If the patient's lactic acid continues to increase, we will consider further imaging to include CT of the abdomen and pelvis. (7) Elevated troponin Current visit: Yes Status: Acute This is likely reactive to associated differential to include a toxidrome versus infectious etiology. We will continue to trend the patient's troponin. There is no obvious ST elevation or ST depression noted on EKG. (8) HALIMA (acute kidney injury) Current visit: Yes Status: Acute (9) Hematuria Current visit: Yes Status: Acute Likely associated with traumatic insertion of Baird catheter and history of urethral stricture. We will continue to monitor the patient's urine and as well as hemoglobin. Qualifiers: Glomerular morphologic changes: unspecified whether glomerular morphologic changes present Qualified Code(s): N02.9 - Recurrent and persistent hematuria with unspecified morphologic changes Internal Medicine - H&P: HPI Chief complaint: Unresponsive Admitted From: Emergency Dept Plans for Post Hospital Care: Transfer Other (Incarceration) History of present illness: Mr. Jaramillo is a 27 year old male arrives to [facility] emergency department after becoming unresponsive in the general population at correction facility. The patient was apparently arrested earlier today on a "drug bust". He was transported to correction where an inmate possibly noted that he ingested some substance. He was found to be altered from his baseline. He was transported to the emergency department for evaluation. Upon arrival to the emergency Department [facility] the patient was noted to have a GCS of 3 and was subsequently intubated. The patient was noted to be tachycardic, hyperthermic, hypotensive and unresponsive. Resuscitation efforts began at that point. Subsequently a right IJ CVC was placed in the emergency department as well as a Baird that was needed to be placed by urology due to inability to have fully passed by ED staff. The patient lab work revealed a leukocytosis, lactic acidosis, elevated troponin, elevated CPK. The patient was acidotic on ABG. The patient was also noted to be hyperthermic with an elevated body temperature. The patient was administered 4 L of IV fluid normal saline in the emergency department, as well as IV Tylenol. The patient is currently on a maintenance of half normal saline at the double maintenance dose. The patient was noted to have an acute kidney injury as well. The patient also had concerns per ED staff for infectious etiology so the patient was started on IV antibiotics and acyclovir as well as steroids for possible meningitis. There is a likely other alternative given the likelihood of ingestion and drug screen urinalysis that revealed amphetamines. The patient's pupils were dilated and poorly reactive to light. Chest x-ray, urinalysis demonstrate no infectious etiology. EKG demonstrates no ST elevation. The patient has received multiple doses of benzodiazepines in the emergency department and is currently sedated with low dose propofol drip. Past Med Surg Social Fam HX - Past Medical History Source: old records reviewed Medical history: non-contributory Psychiatric history: ADHD - Past Surgical History Surgical History: no surgical history - Social History Smoking Status: Current every day smoker Smokeless Tobacco Status: Yes Alcohol use: occasionally Drug use: marijuana, methamphetamine Internal Medicine - H&P: Meds Ibuprofen [Motrin] 800 mg PO Q6-8H PRN #30 tablet 01/30/16 [Rx] Tamsulosin [Flomax] 0.4 mg PO DAILY #5 capsule 01/30/16 [Rx] cephALEXin [Keflex] 500 mg PO TID #21 capsule 01/30/16 [Rx] Amoxicillin/Clavulanate [Augmentin] 875 mg PO BID #14 tablet 05/09/16 [Rx] 3 Allergy/AdvReac Type Severity Reaction Status Date / Time No Known Allergies Allergy Verified 05/09/16 04:47 ROS unobtainable: due to endotracheal tube All Systems PM: A 10-system review of systems was performed and is negative for pertinent findings except as documented above in the HPI. - Constitutional Vitals: Temp Pulse Resp BP Pulse Ox 102.1 F H 124 20 103/64 98 08/15/17 19:40 08/15/17 22:36 08/15/17 22:36 08/15/17 22:36 08/15/17 22:36 Exam: Patient is currently intubated and sedated. - Head Head exam: Present: atraumatic, normocephalic - Eye Eye exam: Present: conjuntiva pink, sclera anicteric Pupils: Present: mydriatic (on exam with poor reaction to light reflex) - Neck Neck exam general surgery: Present: supple, trachea midline. Absent: lymphadenopathy - Respiratory Respiratory exam: Present: CTAB. Absent: accessory muscle use, rales, rhonchi, wheezes - Cardiovascular Cardiovascular exam: Present: +S1, +S2, tachycardia. Absent: diastolic murmur, gallop, rubs, systolic murmur - GI/Abdominal GI/Abdominal exam: Present: normal bowel sounds, soft, no peritoneal signs. Absent: distended, tenderness - Extremities Exam Extremities exam: Present: warm, radial pulses palpable and symmetrical. Absent : calf tenderness, cyanotic, pedal edema - Neurological Exam Additional comments: Patient is currently intubated and sedated. Upon arrival to the emergency department the patient had a GCS of 3. He was unresponsive. - Skin Skin exam: Present: dry, intact Internal Med - H&P Results - Labs CBC & Chem 7: 08/15/17 19:41 08/15/17 19:41 Labs: Short CBC 08/15/17 Range/Units 19:41 WBC 16.2 H (4.3-11.1) K/mcL Hgb 15.2 (12.9-16.9) g/dL Hct 47.2 (37.5-50.1) % Plt Count 333 (140-400) K/mcL Neutrophils # 12.5 H (1.6-8.9) K/mcL BMP 08/15/17 19:41 Sodium 144 Potassium 5.1 Chloride 99 Carbon Dioxide 20 L BUN 26 H Creatinine 2.09 H Glucose 91 Calcium 10.1 Cardiac Enzymes 08/15/17 Range/Units 19:41 Troponin I 0.11 H* (< 0.04) ng/mL Liver Function 08/15/17 Range/Units 19:41 Total Bilirubin 0.4 (0.3-1.0) mg/dL Direct Bilirubin 0.1 (0.0-0.2) mg/dL AST 25 (13-39) Units/L ALT 26 (7-52) Units/L Alkaline Phosphatase 71 (34-104) Units/L Albumin 5.1 (3.5-5.7) g/dL Urine 08/15/17 Range/Units 22:14 Urine Color Red A (Yellow) Urine Clarity Cloudy A (Clear) Urine pH 6.0 (5.0-8.0) pH Units Ur Specific [place] 1.024 (1.010-1.025) Urine Protein 100 H (Neg-Trace) mg/dL Urine Glucose (UA) Normal (Normal) mg/dL - ABG Interpretation ABG results: 08/15/17 20:15 ABG pH 7.28 L ABG pCO2 47 H ABG pO2 67 L ABG HCO3 22 ABG Total CO2 23 ABG O2 Saturation 90 L ABG Base Excess -5 L - Impressions ITS Impressions Chest X-Ray 08/15/17 19:47 IMPRESSION: 1. Endotracheal tube tip is in the expected location, superimposed over the mid trachea. 2. Nasogastric tube tip is in the expected location, superimposed over the gastric antrum. However, the side port is at the level the gastroesophageal junction. For more optimal placement, nasogastric tube should be advanced approximately 3-4 cm to ensure that the side port is inferior to the GE junction. D/ / Elder Sierra MD / Elder Sierra MD Interpreting Provider: Elder Sierra MD X-Ray 08/15/17 19:58 IMPRESSION: 1. Endotracheal tube tip is in the expected location, superimposed over the mid trachea. 2. Nasogastric tube tip is in the expected location, superimposed over the gastric antrum. However, the side port is at the level the gastroesophageal junction. For more optimal placement, nasogastric tube should be advanced approximately 3-4 cm to ensure that the side port is inferior to the GE junction. D/ / Elder Sierra MD / Elder Sierra MD Interpreting Provider: Elder Sierra MD Chest X-Ray 08/15/17 21:21 IMPRESSION: A right internal jugular venous catheter has been placed in good position. Nasogastric tube is now in good position. D/ / Case Schuster MD / Case Schuster MD Interpreting Provider: Case Schuster MD - Attending Attestation I examined this patient and my medical decision-making was reviewed with the Resident Physician. I agree with the documented findings, disposition and treatment plan as described except to the extent set forth below. <Safia Saenz - Last Filed: 08/16/17 00:01> Date of Encounter: 08/15/17 Time of Encounter: 23:00 Internal Medicine - H&P: HPI History of present illness: Mr. Jaramillo is a 27 year old male All Systems PM: A 10-system review of systems was performed and is negative for pertinent findings except as documented above in the HPI. - Constitutional Vitals: Temp Pulse Resp BP Pulse Ox 102.1 F H 124 27 103/64 98 08/15/17 19:40 08/15/17 22:36 08/15/17 23:06 08/15/17 22:36 08/15/17 23:06 Internal Med - H&P Results - Labs CBC & Chem 7: 08/15/17 19:41 08/15/17 19:41 - Attending Attestation I examined this patient and my medical decision-making was reviewed with the Resident Physician, Kenney Triana. I agree with the documented findings, disposition and treatment plan as described except to the extent set forth below. 27-year-old male patient brought to ER with altered mental status and respiratory failure. Has now been intubated in the ER. Suspected ingestion of methamphetamines. Has been hypotensive in the ER. Central line placed. Difficult urinary catheterization. Urology consultation and placed Baird catheter. Patient having gross hematuria. Currently sedated. He responded well to intravenous hydration. He was given broad-spectrum IV antibiotics and also acyclovir as patient did have signs of altered mental status along with septic shock. With no clear source of infection. Lab work shows leukocytosis with WBC of 16.2, lactic acid 9.6 initially and now improved to 4. Troponin 0.11 with CPK of 424. BUN/creatinine 26 creatinine 2.09. 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 Intubated and on mechanical ventilation. Current management. Follow ABG. Repeat chest x-ray in a.m. Shock: Sepsis versus metabolic. Will treat empirically with antibiotics, IV hydration. Trend lactic acid. Also has hematuria. Initial hemoglobin 15. Likely hemoconcentrated. Monitor blood counts closely. Currently blood pressure has improved with aggressive hydration. We will continue to monitor and if patient becomes hypotensive or does not respond to IV fluids, he will need pressors. Altered mental status: Could be metabolic due to drug overdose or from shock. Monitor neurologic status. CT head was negative for any acute process. If MS does not improve, he will need lumbar puncture. Acute kidney injury: BUN/creatinine are elevated. No previous values available. Patient does have a history of chronic drug abuse. Could be due to combination of shock/dehydration and muscle injury. Patient does have an elevation in CPK level. We will trend CPK. Hematuria: Most likely from traumatic insertion of Baird catheter. Monitor blood counts closely. Urology consultation. DVT prophylaxis with SCDs alone for now given patient's hematuria. Condition: Critical Prognosis: Guarded Critical care time: 35 minutes
[2017-08-15 23:05] LABS: ABG Base Excess -11 mEq/L (-2 to 3); ABG HCO3 16 mEq/L (21-27); ABG Oxygen Saturation 100 % (95-98); ABG PCO2 37 mmHg (35-45); ABG PH 7.23 pH Units (7.32-7.45); ABG PO2 293 mmHg (85-104); ABG TCO2 17 mEq/L (20-26); Blood Gas Modality ASSIST CONTROL; Blood Gas PEEP 5 cm H2O; Blood Gas Respiration Rate 14; Blood Gas VT 500 cc
[2017-08-15] MEDS ORDERED: *HR* LORazepam 2 MG/ML VIAL IVP PRN (23:30)
[2017-08-15] MEDS ORDERED: *HR* Midazolam HCl 2 MG/2 ML VIAL IVP PRN (23:41)
[2017-08-15] MEDS ORDERED: Vancomycin 1,500 MG in D5% in Water 250 ML IVPB SCH (23:45)
[2017-08-16] MEDS: Phenylephrine 10 MG in D5% in Water 250 ML IVC SCH ×2 (02:21→05:34)
[2017-08-16 03:46] LABS: Basophils % 0.5 %; Lymphocytes % 4.1 %; Nucleated Red Blood Cells 0.1 /100 WBC (0); Segmented Neutrophils % 79.3 %
[2017-08-16 03:47] LABS: Basophils # 0.1 K/mcL (0.0-0.2); Hematocrit 43.3 % (37.5-50.1); Hemoglobin 14.7 g/dL (12.9-16.9); Immature Granulocytes % 3.6 % (0-4); Lymphocytes # 1.1 K/mcL (0.6-4.6); Mean Corpuscular HGB Conc 33.9 g/dL (31.6-35.5); Mean Corpuscular Hemoglobin 28.9 pg (28.0-33.3); Mean Corpuscular Volume 85.1 fL (83.0-100.0); Mean Platelet Volume 10.6 fL (9.4-12.4); Monocytes # 3.2 K/mcL (0.0-1.3); Monocytes % 12.5 %; Platelet Count 195 K/mcL (140-400); Red Blood Count 5.09 M/mcL (4.19-5.50); Red Cell Distribution Width 13.4 % (11.5-14.5)
[2017-08-16 03:51] LABS: Neutrophils # 20.5 K/mcL (1.6-8.9)
[2017-08-16 04:26] LABS: BUN/Creatinine Ratio 11 (6-26); Blood Urea Nitrogen 35 mg/dL (6-20); Calcium 5.7 mg/dL (8.6-10.3); Carbon Dioxide 18 mEq/L (23-29); Chloride 105 mEq/L (98-107); Glucose 103 mg/dL (70-105); Osmolality,Calculated 288 (280-300); Potassium 5.7 mEq/L (3.5-5.1); Sodium 135 mEq/L (136-145); eGFR For African Americans 27 (> 60); eGFR For Non-African Americans 23 (> 60)
[2017-08-16 04:29] LABS: Anisocytosis 1+ (Not Present); Platelet Estimate Normal (Normal); Reactive Lymphocytes Present (Not Present); Smudge Cells Present (Not Present); Toxic Granulation Present (Not Present)
[2017-08-16] MEDS ORDERED: Albuterol 2.5 MG/3 ML NEBULIZER IH ONE ×2 (04:33→17:48)
[2017-08-16] MEDS ORDERED: Potassium Chloride 40 MEQ/200 ML BAG IVPB PRN (04:43)
[2017-08-16] MEDS ORDERED: Potassium Phosphate 44 MEQ in 0.9 % Sodium Chloride 250 ML IVPB PRN (04:43)
[2017-08-16] MEDS ORDERED: 0.9 % Sodium Chloride 1,000 ML IVC ONE ×2 (04:47→06:11)
[2017-08-16] MEDS ORDERED: Albuterol 2.5 MG/3 ML NEBULIZER ONE (05:00)
[2017-08-16 05:32] LABS: Magnesium 3.1 mg/dL (1.6-2.6); Phosphorous 10.1 mg/dL (2.7-4.5)
[2017-08-16 05:51] LABS: Creatine Kinase > 20000 Units/L (30-223)
[2017-08-16] MEDS ORDERED: 0.9 % Sodium Chloride 1,000 ML IVC SCH (06:00)
[2017-08-16] MEDS ORDERED: Piperacillin/Tazobactam 3.375 GM/200 ML BAG IVPB SCH (06:00)
--- NOTE | 2017-08-16 06:17 | Event Note ---
Date of Encounter: 08/16/17 Time of Encounter: 06:16 Patient noted to have a large amount of electrolyte abnormalities on initial repeat labs from the ICU. The patient's potassium was addressed, an EKG was performed. The patient was given another liter of fluid. CPK was pending. Upon arrival of CPK result, which revealed a result greater than 20,000, we consulted nephrology. I spoke to Dr. Acosta in nephrology who stated that he will come see the patient. The patient has continued to experience worsening renal function as well as an elevated troponin which is likely associated with his renal function. I am concerned about the patient's elevated CPK. Currently awaiting recommendations from nephrology.
--- NOTE | 2017-08-16 07:31 | Urology Progress Note ---
Date of Encounter: 08/16/17 Time of Encounter: 07:29 - Assessment and Plan (1) Urethral stricture Current Visit: Yes Status: Acute Assessment and plan: 27-year-old man status post urethral dilation with a indwelling 16 [place] Baird catheter. He has cola colored urine. Okay to hand irrigate. He doesn't require CBI at this time. Urology will continue to follow. 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 Urine has a dark maroon color to it. His CPK is elevated concerning for rhabdomyolysis. Objective Initial Vital Signs Pulse Resp BP Pulse Ox 154 25 85/49 89 08/15/17 19:19 08/15/17 19:19 08/15/17 19:19 08/15/17 19:19 - General physical appearance Present: other (Intubated) - Genitourinary Urine Appearance: Present: Hematuria (Cola colored urine.) - Labs 08/16/17 03:25 08/16/17 03:25 Diabetes panel 08/16/17 Range/Units 03:25 Sodium 135 L D (136-145) mEq/L Potassium 5.7 H (3.5-5.1) mEq/L Chloride 105 (98-107) mEq/L Carbon Dioxide 18 L (23-29) mEq/L BUN 35 H (6-20) mg/dL Creatinine 3.32 H (0.70-1.30) mg/dL Glucose 103 (70-105) mg/dL Calcium 5.7 L* (8.6-10.3) mg/dL Calcium panel 08/16/17 Range/Units 03:25 Calcium 5.7 L* (8.6-10.3) mg/dL Phosphorus 10.1 H (2.7-4.5) mg/dL Pituitary panel 08/16/17 Range/Units 03:25 Sodium 135 L D (136-145) mEq/L Potassium 5.7 H (3.5-5.1) mEq/L Chloride 105 (98-107) mEq/L Carbon Dioxide 18 L (23-29) mEq/L BUN 35 H (6-20) mg/dL Creatinine 3.32 H (0.70-1.30) mg/dL Glucose 103 (70-105) mg/dL Calcium 5.7 L* (8.6-10.3) mg/dL Adrenal panel 08/16/17 Range/Units 03:25 Sodium 135 L D (136-145) mEq/L Potassium 5.7 H (3.5-5.1) mEq/L Chloride 105 (98-107) mEq/L Carbon Dioxide 18 L (23-29) mEq/L BUN 35 H (6-20) mg/dL Creatinine 3.32 H (0.70-1.30) mg/dL Glucose 103 (70-105) mg/dL Calcium 5.7 L* (8.6-10.3) mg/dL Consult Discharge Plan - Plan Referrals: NONE,PCP [Primary Care Provider] -
[2017-08-16] MEDS: Phenylephrine 20 MG in D5% in Water 500 ML IVC SCH ×2 (07:51→20:21)
--- NOTE | 2017-08-16 08:01 | Pulmonology Consult Note ---
<Lenny Zamudio - Last Filed: 08/16/17 10:32> Date of Encounter: 08/16/17 Time of Encounter: 07:30 Assessment and Plan (1) Shock Current Visit: Yes Status: Acute BP was 85/49 on admission. -Received 4 L of IV NS as well as maintenance of half NS. -The patient's BP has continued to be fluid responsive with a last systolic of 103. -Unknown at etiology of the patient's hypotension; possible infectious VS toxidrome. -Given the patient's hyperthermia and tachycardia this is a likely etiology of his mental status but given the hypotension, infectious versus metabolic - derangements cannot be ruled out. -With the patient's alteration in mentation combined with the leukocytosis, elevated lactic acid, there was concern for possible meningitis and the patient was too unstable to perform a lumbar puncture so the patient was started on IV antibiotics, acyclovir and administered steroids. -We will continue to monitor the patient's response and mental status as well as trend labs including lactic acid, troponin, renal function. -Urinalysis and chest x-ray demonstrated no infectious etiology of patient's symptoms. (2) Substance abuse Current Visit: Yes Status: Acute -Patient apparently had visualization of ingestion from another inmate with + amphetamine on UDS. -Toxicology positive for the following: -Amphetamines, benzodiazepines, THC (3) Endocarditis Current Visit: Yes Status: Acute Patient has elevated troponin, white count 25.9. ECHO demonstrated the following : Impressions: -LVEF 35-40%. -Global LV systolic dysfunction. -Mild left ventricular diastolic dysfunction. -Normal right ventricular structure and function. There is a very small, mobile echodensity attached to the anterior tricuspid leaflet that is not well characterized. Recommend considering CHRISTY for improved image quality if clinically appropriate. -Mild tricuspid regurgitation. Plan: -Restart Vancomycin -Cardiology consulted (4) Elevated troponin Current Visit: Yes Status: Acute -Troponin levels have been as follows: 0.11, 4.65, 6.82 -This is likely reactive to associated differential to include a toxidrome versus infectious etiology -No obvious ST elevation or ST depression noted on EKG -Given patient's past drug abuse, we will perform an ECHO to determine if there is any possible signs of endocarditis or valvular heart disease associated with infectious etiology. -Cardiology consult (5) Tachycardia Current Visit: Yes Status: Acute -Likely reactive with differential to include infectious versus toxidrome -HR this morning is 115 BPM (6) Lactic acidosis Current Visit: Yes Status: Acute -Lactic acid has been as follows: 9.6, 4.0, 2.9, 2.0 -Continue to monitor (7) HALIMA (acute kidney injury) Current Visit: Yes Status: Acute -Creatinine on presentation was 2.09. -Has since increased to 3.53. -IV fluids NS at 200 ml/h -Was initially placed on acyclovir for possible meningitis; was d/c due to HALIMA History of Present Illness Consult date: 08/16/17 History of present illness: Mr. Jaramillo is a 27 year old male who presented to the ED after he was found unresponsive in the general population at prison facility. He was apparently arrested earlier for a"drug bust". When he was transported to prison, inmate possibly noted that he ingested some substance. On arrival, was found to be altered GCS of 3; subsequently intubated. Was tachycardic, hyperthermic, hypotensive and unresponsive. Resuscitation efforts began; right IJ CVC was placed. Araujo placed by urology due to inability to have fully passed by ED staff. Laboratory analysis demonstrated leukocytosis, lactic acidosis, elevated troponin, elevated CPK. Was found to be acidotic on ABG. Also found to be hyperthermic at 102.1. Was given 4 L of IV fluid normal saline and started on IV Tylenol. Found to have HALIMA as well. IV antibiotics, acyclovir, and steroids were started for possible meningitis. likelihood of ingestion; UDS demonstrated presence of amphetamines. Pupils were dilated poorly reactive to light. Currently sedated with low dose propofol drip. Patient was seen and examined at bedside this morning. Patient is currently intubated and sedated; completely non-responsive at this time. Past Med Surg Social Fam HX - Past Medical History Medical history: non-contributory Psychiatric history: ADHD - Past Surgical History Surgical History: no surgical history - Social History Smoking Status: Current every day smoker Smokeless Tobacco Status: Yes Alcohol use: occasionally Drug use: marijuana, methamphetamine Medications and Allergies Unable To Obtain [Unable to Obtain] 08/16/17 [History] 3 Allergy/AdvReac Type Severity Reaction Status Date / Time No Known Allergies Allergy Verified 05/09/16 04:47 ROS unobtainable: due to endotracheal tube, due to mental status All Systems: A 10-system review of systems was performed and is negative for pertinent findings except as documented above in the HPI. Physical Examination Vital Signs: Vital Signs, Last 4 Hours Temp Pulse Resp BP Pulse Ox 08/16/17 06:00 114 25 97/71 95 08/16/17 05:46 26 101/70 97 08/16/17 05:00 115 17 109/73 96 08/16/17 04:44 97.9 F 08/16/17 04:00 114 15 90/70 99 08/16/17 03:47 23 90/66 94 General appearance: no acute distress, asleep, comatose Neck: supple Effort: normal Auscultation: bilateral: clear Cardiovascular: other (tachycardic) unable to assess due to mental status Ventilator Settings Ventilator Settings: Ventilator Settings, Last 8 Hours Ventilator Mode A/C Ventilator Mode A/C Ventilator Mode A/C Ventilator Mode A/C Ventilator Mode A/C Ventilator Mode A/C Ventilator Mode A/C Ventilator Mode A/C Ventilator Mode A/C Ventilator Mode A/C Ventilator Mode A/C Ventilator Tidal Volume 500 Setting Ventilator Tidal Volume 500 Setting Ventilator Tidal Volume 500 Setting Ventilator Tidal Volume 500 Setting Ventilator Tidal Volume 500 Setting Ventilator Tidal Volume 500 Setting Ventilator Tidal Volume 500 Setting Ventilator Tidal Volume 500 Setting Ventilator Tidal Volume 500 Setting Ventilator Tidal Volume 500 Setting Ventilator Tidal Volume 500 Setting Ventilator Respiratory Rate 14 Setting Ventilator Respiratory Rate 14 Setting Ventilator Respiratory Rate 14 Setting Ventilator Respiratory Rate 14 Setting Ventilator Respiratory Rate 14 Setting Ventilator Respiratory Rate 14 Setting Ventilator Respiratory Rate 14 Setting Ventilator Respiratory Rate 14 Setting Ventilator Respiratory Rate 14 Setting Ventilator Respiratory Rate 14 Setting Ventilator Respiratory Rate 14 Setting Actual Respiratory Rate 25 Actual Respiratory Rate 26 Actual Respiratory Rate 18 Actual Respiratory Rate 18 Actual Respiratory Rate 23 Actual Respiratory Rate 18 Actual Respiratory Rate 24 Actual Respiratory Rate 24 Actual Respiratory Rate 25 Actual Respiratory Rate 25 Actual Respiratory Rate 28 Positive End Expiratory 5 Pressure Positive End Expiratory 5 Pressure Positive End Expiratory 5 Pressure Positive End Expiratory 5 Pressure Positive End Expiratory 5 Pressure Positive End Expiratory 5 Pressure Positive End Expiratory 5 Pressure Positive End Expiratory 5 Pressure Positive End Expiratory 5 Pressure Positive End Expiratory 5 Pressure Positive End Expiratory 5 Pressure Peak Inspiratory Airway 22 Pressure Peak Inspiratory Airway 22 Pressure Peak Inspiratory Airway 27 Pressure Peak Inspiratory Airway 29 Pressure Peak Inspiratory Airway 19 Pressure Peak Inspiratory Airway 31 Pressure Peak Inspiratory Airway 19 Pressure Peak Inspiratory Airway 19 Pressure Peak Inspiratory Airway 19 Pressure Peak Inspiratory Airway 19 Pressure Peak Inspiratory Airway 19 Pressure Results - Laboratory Findings CBC and BMP: 08/16/17 08:00 08/16/17 08:00 ABG ABG pH 7.23 pH Units (7.32-7.45) L 08/15/17 23:01 ABG pCO2 37 mmHg (35-45) 08/15/17 23:01 ABG pO2 293 mmHg (85-104) H D 08/15/17 23:01 ABG O2 Saturation 100 % (95-98) H 08/15/17 23:01 PT/INR, D-dimer PT 13.2 Seconds (9.4-12.1) H 08/15/17 19:41 Abnormal lab findings: Abnormal lab results WBC 25.9 K/mcL (4.3-11.1) H D 08/16/17 03:25 Neutrophils # 20.5 K/mcL (1.6-8.9) H 08/16/17 03:25 Monocytes # 3.2 K/mcL (0.0-1.3) H 08/16/17 03:25 Nucleated RBCs/100 WBC 0.1 /100 WBC (0) H 08/16/17 03:25 Reactive Lymphocytes Present (Not Present) A 08/16/17 03:25 Smudge Cells Present (Not Present) A 08/16/17 03:25 Toxic Granulation Present (Not Present) A 08/16/17 03:25 Anisocytosis 1+ (Not Present) A 08/16/17 03:25 PT 13.2 Seconds (9.4-12.1) H 08/15/17 19:41 APTT 25.9 Seconds (26.0-36.0) L 08/15/17 19:41 ABG pH 7.23 pH Units (7.32-7.45) L 08/15/17 23:01 ABG pO2 293 mmHg (85-104) H D 08/15/17 23:01 ABG HCO3 16 mEq/L (21-27) L 08/15/17 23:01 ABG Total CO2 17 mEq/L (20-26) L 08/15/17 23:01 ABG O2 Saturation 100 % (95-98) H 08/15/17 23:01 ABG Base Excess -11 mEq/L (-2 to 3) L 08/15/17 23:01 Sodium 135 mEq/L (136-145) L D 08/16/17 03:25 Potassium 5.7 mEq/L (3.5-5.1) H 08/16/17 03:25 Carbon Dioxide 18 mEq/L (23-29) L 08/16/17 03:25 BUN 35 mg/dL (6-20) H 08/16/17 03:25 Creatinine 3.32 mg/dL (0.70-1.30) H 08/16/17 03:25 Est GFR ( Amer) 27 (> 60) L 08/16/17 03:25 Est GFR (Non-Af Amer) 23 (> 60) L 08/16/17 03:25 POC Glucose 99 (58-89) H 08/15/17 23:48 Lactic Acid 2.9 mmol/L (0.5-2.2) H 08/16/17 03:25 Calcium 5.7 mg/dL (8.6-10.3) L* 08/16/17 03:25 Phosphorus 10.1 mg/dL (2.7-4.5) H 08/16/17 03:25 Magnesium 3.1 mg/dL (1.6-2.6) H 08/16/17 03:25 Creatine Kinase > 08474 Units/L (30-223) H 08/16/17 03:25 Troponin I 4.65 ng/mL (< 0.04) H* 08/16/17 03:25 Urine Color Red (Yellow) A 08/15/17 22:14 Urine Clarity Cloudy (Clear) A 08/15/17 22:14 Urine Protein 100 mg/dL (Neg-Trace) H 08/15/17 22:14 Urine Blood Large (Negative) H 08/15/17 22:14 Ur Leukocyte Esterase Small (Negative) H 08/15/17 22:14 Urine Microscopic RBC TNTC per hpf (0-3) H 08/15/17 22:14 Salicylates < 5.0 mg/dL (15.0-30.0) L 08/15/17 19:41 Acetaminophen < 1.0 mcg/mL (10-30) L 08/15/17 19:41 Ur Amphetamines Screen Positive ng/mL (Fdvxdt=6585) H 08/15/17 22:14 U Benzodiazepines Scrn Positive ng/mL (Fgbfcm=708) H 08/15/17 22:14 U Marijuana (THC) Screen Positive ng/mL (Cutoff = 50) H 08/15/17 22:14 - Clinical Findings Intake & Output: Intake & Output 08/15/17 08/15/17 08/16/17 15:59 23:59 07:59 Intake Total 120 2060 / 2060 Output Total 450 / 450 Balance 1611 / 1611 Weight 86.6 kg Consult Discharge Plan - Plan Referrals: NONE,PCP [Primary Care Provider] - <Maverick Hernandez W - Last Filed: 08/16/17 11:08> Date of Encounter: 08/16/17 All Systems: A 10-system review of systems was performed and is negative for pertinent findings except as documented above in the HPI. Physical Examination Vital Signs: Vital Signs, Last 4 Hours Pulse Resp BP Pulse Ox 08/16/17 08:44 115 08/16/17 08:22 34 93 08/16/17 08:00 115 20 114/87 92 08/16/17 07:00 114 25 105/83 93 08/16/17 06:00 114 25 97/71 95 08/16/17 05:46 26 101/70 97 General appearance: no acute distress, asleep, comatose (Noted to breath over the vent. modest withdrawl to noxious stimuli) Gastrointestinal: hypoactive bowel sounds Extremities: no cyanosis, no edema Musculoskeletal: no deformities unable to assess due to mental status, other (Pupils are equal round reactive to light mildest conjugate gaze. No nystagmus. No spontaneous movement of extremities. Normal tone appreciated) Ventilator Settings Ventilator Settings: Ventilator Settings, Last 8 Hours Ventilator Mode A/C Ventilator Mode A/C Ventilator Mode A/C Ventilator Mode A/C Ventilator Mode A/C Ventilator Mode A/C Ventilator Mode A/C Ventilator Mode A/C Ventilator Mode A/C Ventilator Mode A/C Ventilator Mode A/C Ventilator Mode A/C Ventilator Tidal Volume 500 Setting Ventilator Tidal Volume 500 Setting Ventilator Tidal Volume 500 Setting Ventilator Tidal Volume 500 Setting Ventilator Tidal Volume 500 Setting Ventilator Tidal Volume 500 Setting Ventilator Tidal Volume 500 Setting Ventilator Tidal Volume 500 Setting Ventilator Tidal Volume 500 Setting Ventilator Tidal Volume 500 Setting Ventilator Tidal Volume 500 Setting Ventilator Tidal Volume 500 Setting Ventilator Respiratory Rate 14 Setting Ventilator Respiratory Rate 14 Setting Ventilator Respiratory Rate 14 Setting Ventilator Respiratory Rate 14 Setting Ventilator Respiratory Rate 14 Setting Ventilator Respiratory Rate 14 Setting Ventilator Respiratory Rate 14 Setting Ventilator Respiratory Rate 14 Setting Ventilator Respiratory Rate 14 Setting Ventilator Respiratory Rate 14 Setting Ventilator Respiratory Rate 14 Setting Ventilator Respiratory Rate 14 Setting Actual Respiratory Rate 30 Actual Respiratory Rate 20 Actual Respiratory Rate 25 Actual Respiratory Rate 25 Actual Respiratory Rate 26 Actual Respiratory Rate 18 Actual Respiratory Rate 18 Actual Respiratory Rate 23 Actual Respiratory Rate 18 Actual Respiratory Rate 24 Actual Respiratory Rate 24 Positive End Expiratory 5 Pressure Positive End Expiratory 5 Pressure Positive End Expiratory 5 Pressure Positive End Expiratory 5 Pressure Positive End Expiratory 5 Pressure Positive End Expiratory 5 Pressure Positive End Expiratory 5 Pressure Positive End Expiratory 5 Pressure Positive End Expiratory 5 Pressure Positive End Expiratory 5 Pressure Positive End Expiratory 5 Pressure Positive End Expiratory 5 Pressure Peak Inspiratory Airway 18 Pressure Peak Inspiratory Airway 20 Pressure Peak Inspiratory Airway 17 Pressure Peak Inspiratory Airway 22 Pressure Peak Inspiratory Airway 22 Pressure Peak Inspiratory Airway 27 Pressure Peak Inspiratory Airway 29 Pressure Peak Inspiratory Airway 19 Pressure Peak Inspiratory Airway 31 Pressure Peak Inspiratory Airway 19 Pressure Peak Inspiratory Airway 19 Pressure Results - Laboratory Findings CBC and BMP: 08/16/17 08:00 08/16/17 08:00 ABG ABG pH 7.28 pH Units (7.32-7.45) L 08/16/17 08:26 ABG pCO2 29 mmHg (35-45) L 08/16/17 08:26 ABG pO2 80 mmHg (85-104) L 08/16/17 08:26 ABG O2 Saturation 94 % (95-98) L 08/16/17 08:26 PT/INR, D-dimer PT 13.2 Seconds (9.4-12.1) H 08/15/17 19:41 Abnormal lab findings: Abnormal lab results WBC 16.3 K/mcL (4.3-11.1) H 08/16/17 08:00 Neutrophils # 13.0 K/mcL (1.6-8.9) H 08/16/17 08:00 Monocytes # 2.1 K/mcL (0.0-1.3) H 08/16/17 08:00 Nucleated RBCs/100 WBC 0.1 /100 WBC (0) H 08/16/17 08:00 Reactive Lymphocytes Present (Not Present) A 08/16/17 03:25 Smudge Cells Present (Not Present) A 08/16/17 03:25 Toxic Granulation Present (Not Present) A 08/16/17 03:25 Anisocytosis 1+ (Not Present) A 08/16/17 03:25 PT 13.2 Seconds (9.4-12.1) H 08/15/17 19:41 APTT 25.9 Seconds (26.0-36.0) L 08/15/17 19:41 ABG pH 7.28 pH Units (7.32-7.45) L 08/16/17 08:26 ABG pCO2 29 mmHg (35-45) L 08/16/17 08:26 ABG pO2 80 mmHg (85-104) L 08/16/17 08:26 ABG HCO3 14 mEq/L (21-27) L 08/16/17 08:26 ABG Total CO2 15 mEq/L (20-26) L 08/16/17 08:26 ABG O2 Saturation 94 % (95-98) L 08/16/17 08:26 ABG Base Excess -12 mEq/L (-2 to 3) L 08/16/17 08:26 Potassium 5.4 mEq/L (3.5-5.1) H 08/16/17 08:00 Chloride 108 mEq/L (98-107) H 08/16/17 08:00 Carbon Dioxide 18 mEq/L (23-29) L 08/16/17 08:00 BUN 39 mg/dL (6-20) H 08/16/17 08:00 Creatinine 3.53 mg/dL (0.70-1.30) H 08/16/17 08:00 Est GFR ( Amer) 26 (> 60) L 08/16/17 08:00 Est GFR (Non-Af Amer) 21 (> 60) L 08/16/17 08:00 Glucose 117 mg/dL (70-105) H 08/16/17 08:00 POC Glucose 99 (58-89) H 08/15/17 23:48 Calcium 5.3 mg/dL (8.6-10.3) L* 08/16/17 08:00 Phosphorus 10.1 mg/dL (2.7-4.5) H 08/16/17 03:25 Magnesium 3.1 mg/dL (1.6-2.6) H 08/16/17 03:25 Creatine Kinase > 02809 Units/L (30-223) H 08/16/17 03:25 Troponin I 6.82 ng/mL (< 0.04) H* 08/16/17 08:00 Urine Color Red (Yellow) A 08/15/17 22:14 Urine Clarity Cloudy (Clear) A 08/15/17 22:14 Urine Protein 100 mg/dL (Neg-Trace) H 08/15/17 22:14 Urine Blood Large (Negative) H 08/15/17 22:14 Ur Leukocyte Esterase Small (Negative) H 08/15/17 22:14 Urine Microscopic RBC TNTC per hpf (0-3) H 08/15/17 22:14 Salicylates < 5.0 mg/dL (15.0-30.0) L 08/15/17 19:41 Acetaminophen < 1.0 mcg/mL (10-30) L 08/15/17 19:41 Ur Amphetamines Screen Positive ng/mL (Jxcqhv=0303) H 08/15/17 22:14 U Benzodiazepines Scrn Positive ng/mL (Funeqa=230) H 08/15/17 22:14 U Marijuana (THC) Screen Positive ng/mL (Cutoff = 50) H 08/15/17 22:14 - Clinical Findings Intake & Output: Intake & Output 08/15/17 08/16/17 08/16/17 23:59 07:59 15:59 Intake Total 2561 / 2561 Output Total 450 / 450 Balance 2111 / 2111 Weight 86.6 kg - Attending Attestation I examined this patient and my medical decision-making was reviewed with the Resident Physician. I agree with the documented findings, disposition and treatment plan as described except to the extent set forth below. We independently had [id number] contact with the patient I spent 40min of Critical Care time with this patient. It involved decision making of high complexity to assess, manipulate, and support vital organ system failure and/or to prevent further life threatening deterioration of the patient' s condition. The time involved in the performance of separately reportable procedures was not counted toward critical care time. Patient seen and examined at bedside Labs, radiology, chart personally reviewed. Management was reviewed during multidisciplinary critical care rounds. 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 I doubt CLOTH WORKER infection such as meningoencephalitis especially not viral and thus acyclovir was stopped because of risk to further damage kidney. We will stop coverage for meningitis today. Pulm: Acute respiratory stable gas exchange on vent. VAP bundle initiated, Not Candidate for SBT today Cards: Shock status post volume resuscitation this is likely Cardiogenic in nature with elevated troponin though s/t to toxic ingestion. ECHO prelim with possible tricuspic vegetation pending official read. Cardiology Consulted may need CHRISTY. On Vasopressor for goal map around 65. Lactic acidosis trending down which is encouraging. FEN-GI: NPO for now GI Prophylaxis Given Renal: Anuric HALIMA s/t to Hypotension and Rhabdomyolysis with Mixed Acidosis. Severe Hyperkalemia with ECG changes which as been medically treated. Nephro Consulted for QC SCIENTIST. Urology consulted for araujo placement s/t history of renal stricture. Continue maintenance crystalloid infusion for rhabdo ID: SIRS with unclear source of infection. Cultures obtained plan to deescalate/ stop ABx in 24 hours from initiation. Heme/Onc: DVT prophylaxis Given Endo: Glucose Monitored Integ/MSK: Skin Care per routine ICU Nursing Protocol to prevent ulcers. Lines: All lines examined without evidence of infection : Dispo: Remain in ICU for ongoing critical care mngt CODE:Full Patient's Mother Updated at Beside.
[2017-08-16 08:33] LABS: ABG Base Excess -12 mEq/L (-2 to 3); ABG HCO3 14 mEq/L (21-27); ABG Oxygen Saturation 94 % (95-98); ABG PCO2 29 mmHg (35-45); ABG PH 7.28 pH Units (7.32-7.45); ABG PO2 80 mmHg (85-104); ABG TCO2 15 mEq/L (20-26); Blood Gas Modality ASSIST CONTROL; Blood Gas PEEP 5 cm H2O; Blood Gas Respiration Rate 14; Blood Gas VT 500 cc
[2017-08-16 08:36] LABS: Hematocrit 42.5 % (37.5-50.1); Hemoglobin 14.3 g/dL (12.9-16.9); Immature Granulocytes % 1.2 % (0-4); Lymphocytes % 6.1 %; Mean Corpuscular HGB Conc 33.6 g/dL (31.6-35.5); Mean Corpuscular Hemoglobin 28.9 pg (28.0-33.3); Platelet Count 143 K/mcL (140-400); Red Blood Count 4.94 M/mcL (4.19-5.50); Red Cell Distribution Width 13.7 % (11.5-14.5); Segmented Neutrophils % 79.7 %
[2017-08-16 08:37] LABS: Basophils # 0.1 K/mcL (0.0-0.2); Basophils % 0.3 %; Monocytes # 2.1 K/mcL (0.0-1.3); Monocytes % 12.7 %; Nucleated Red Blood Cells 0.1 /100 WBC (0)
[2017-08-16 08:50] LABS: BUN/Creatinine Ratio 11 (6-26); Blood Urea Nitrogen 39 mg/dL (6-20); Calcium 5.3 mg/dL (8.6-10.3); Carbon Dioxide 18 mEq/L (23-29); Chloride 108 mEq/L (98-107); Glucose 117 mg/dL (70-105); Osmolality,Calculated 292 (280-300); Potassium 5.4 mEq/L (3.5-5.1); Sodium 136 mEq/L (136-145); eGFR For African Americans 26 (> 60); eGFR For Non-African Americans 21 (> 60)
[2017-08-16] MEDS ORDERED: Lacri-Lube 3.5 GM TUBE BOTH EYES PRN (10:18)
[2017-08-16] MEDS: Ipratropium/Albuterol Neb 3 ML IH SCH ×3 (10:29→21:31)
[2017-08-16] MEDS ORDERED: Vancomycin 1,500 MG in D5% in Water 250 ML IVPB SCH (11:00)
[2017-08-16 11:13] LABS: VBG Ionized Calcium 0.69 mmol/L (1.15-1.35)
--- NOTE | 2017-08-16 11:18 | Cardiology Consult Note ---
<Joce Banks - Last Filed: 08/16/17 15:09> Date of Encounter: 08/16/17 Time of Encounter: 11:17 Assessment and Plan (1) Elevated troponin Current Visit: Yes Status: Acute Likely in the setting of drug overdose, rhabdo pt unresponsive but no history of chest pain reported Pt's troponin's 0.11, 4.65, 6.82 Echo shows global LV hypokinesia and EF of 35-40% given patient's age unlikely due to occlussive ischemic disease likely secondary to severe rhabdo, shock, HALIMA possible drug induced vasospasm Plan: correct underlying shock, halima continue to monitor (2) Endocarditis Current Visit: Yes Status: Suspected ECHO showing small mobile hypodensity on Tricuspid valve. 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 Plan: Continue abx per primary team ordered CHRISTY for confirmation of vegetation Qualifiers: Endocarditis type: infective Infective endocarditis organism: bacterial Chronicity: unspecified Qualified Code(s): I33.0 - Acute and subacute infective endocarditis (3) Substance abuse Current Visit: Yes Status: Acute Discussion w patient/family: The assessment and plan as outlined above was discussed with the patient and/or family members who expressed understanding and agreement. All questions were answered. Thank you for involving us in the care of your patient. Please call with any questions. History of Present Illness Consult date: 08/16/17 Requesting physician: Lenny Zamudio Consult reason: Troponin elevated, possible IE Chief complaint: OD History of present illness: Mr. Jaramillo is a 27 year old male c PMhx of substance abuse presented to [facility] overnight brought in by police from nursing home for AMS. Patient was arrested as a part of a drug bust. While in holding another prisoner saw patient swallowed some substance. He was found to be altered and was transported to [facility] ED. Patient had a GCS of 3 in the ED and was intubated. Patient was tachycardic, hyperthermic, hypotnesive. Patient received fluid resuscitation. Patient was sedated using multiple doses of benzos and was placed n a low dose propofol drip. patient's drug screen was positive for amphetamines, benzodiazapines, and THC. Pt had HALIMA and severe Rhabdomyolysis with CK >20,000. ECHO showed global LV hypokinesia and EF 35-40%. Also noted small mobile hypodenisty on Tricuspid Valve. Patient had elevated Troponin's as well. Patient started on broad spectrum abx and admitted to the ICU. Past Med Surg Social Fam HX - Past Medical History Medical history: non-contributory Psychiatric history: ADHD - Past Surgical History Surgical History: no surgical history - Social History Smoking Status: Current every day smoker Smokeless Tobacco Status: Yes Alcohol use: occasionally Drug use: marijuana, methamphetamine Medications and Allergies Unable To Obtain [Unable to Obtain] 08/16/17 [History] 3 Allergy/AdvReac Type Severity Reaction Status Date / Time No Known Allergies Allergy Verified 05/09/16 04:47 ROS unobtainable: due to endotracheal tube, due to mental status Physical Examination Vital Signs, Last 4 Hours Pulse Resp BP Pulse Ox 08/16/17 10:32 36 90 08/16/17 08:44 115 08/16/17 08:22 34 93 08/16/17 08:00 115 20 114/87 92 General: Other (Sedated, intubated) Neck: No JVD Cardiac: Other (tachycardic, regular rythym) Lungs: Other (Loud rhonchi through out) Neuro: Other (unresponsive ) Abdomen: Soft Skin: No rashes noted on visualized skin Extremities: No Clubbing, No Cyanosis, No Edema, Normal Pulses Results 08/16/17 08:00 08/16/17 08:00 Lab Results 08/16/17 08/16/17 08/16/17 03:25 03:25 03:25 WBC 25.9 H D Hgb 14.7 Hct 43.3 Plt Count 195 Sodium 135 L D Potassium 5.7 H Chloride 105 Carbon Dioxide 18 L BUN 35 H Creatinine 3.32 H Glucose 103 Calcium 5.7 L* Magnesium 3.1 H Troponin I 4.65 H* 08/16/17 08/16/17 08/16/17 08:00 08:00 08:00 WBC 16.3 H Hgb 14.3 Hct 42.5 Plt Count 143 Sodium 136 Potassium 5.4 H Chloride 108 H Carbon Dioxide 18 L BUN 39 H Creatinine 3.53 H Glucose 117 H Calcium 5.3 L* Magnesium Troponin I 6.82 H* Consult Discharge Plan - Plan Referrals: NONE,PCP [Primary Care Provider] - <Juan Luis German - Last Filed: 08/17/17 21:37> Date of Encounter: 08/16/17 Time of Encounter: 20:00 - Attending Attestation I examined this patient and my medical decision-making was reviewed with the Resident Physician. I agree with the documented findings, disposition and treatment plan as described except to the extent set forth below. CC: hypotension, loss of consciousness Pt intubated, sedated, hx obtained from medical record, pts mother. Pt was arrested, in holding, witnessed ingestion of unknown substance, became unresponsive, transported to ER tachycardic, hypertehrmic, unresponsive and hypotensive. Pt intubated, resuscitated, fluid and electrolytes corrected. Pt unresponsive. PE: reviewed above, agree. Reviewed echo with Dr. Coelho, agree with question of vegetation on tricuspid valve, will arrange CHRISTY later today. IMP: 1. Elevated troponin, most likely due to hypotension and hypoxia, no acute ischemic EKG changes, echo shows global not subsegmental abnormalities, most likely troponin elevation due to metobolic derangements. 2. Left ventricular systolic impairment: EF est 35%, pt has no prior symptoms of dysnea, lower ext swelling, or other markers of heart failure, as per pts mother at bedside, suspect depressed LV function also due to profound metabolic derangements 3. Endocarditis; possible, difficult imaging due supine positioning, will schedule CHIRSTY to fully evaluate possible endocarditis 4. Polysubstance ingestion, drug screen positive for amphetamines, benzodiazepines, and THC. Assessment and Plan Discussion w patient/family: The assessment and plan as outlined above was discussed with the patient and/or family members who expressed understanding and agreement. All questions were answered. Thank you for involving us in the care of your patient. Please call with any questions. History of Present Illness History of present illness: Mr. Jaramillo is a 27 year old male All Systems Review: A 10-system review of systems was performed and is negative for pertinent findings except as documented above in the HPI. Physical Examination Vital Signs, Last 4 Hours Temp Pulse Resp BP Pulse Ox 08/17/17 20:00 144 19 106/68 98 08/17/17 19:59 17 98 08/17/17 19:25 98.7 F 08/17/17 19:15 146 12 101/81 98 08/17/17 18:00 144 21 104/85 98 08/17/17 17:45 98.4 F 12 93/72 Results 08/17/17 04:00 08/17/17 18:30 Lab Results 08/17/17 08/17/17 08/17/17 04:00 04:05 13:10 WBC 25.2 H D Hgb 14.9 Hct 45.0 Plt Count 77 L Sodium 138 Potassium 3.9 D 5.3 H D Chloride 101 Carbon Dioxide 33 H BUN 34 H Creatinine 4.57 H Glucose 145 H Calcium 5.9 L* 08/17/17 08/17/17 18:30 18:30 WBC Hgb Hct Plt Count Sodium 134 L 134 L Potassium 4.1 4.1 Chloride 96 L 96 L Carbon Dioxide 32 H 32 H BUN 26 H 26 H Creatinine 4.24 H 4.21 H Glucose 130 H 131 H Calcium 6.3 L 6.4 L
[2017-08-16 11:30] LABS: INR 1.8; Prothrombin Time 19.8 Seconds (9.4-12.1)
[2017-08-16 11:32] LABS: Activated Partial Thrombo Time 28.9 Seconds (26.0-36.0)
[2017-08-16] MEDS ORDERED: 0.9 % Sodium Chloride 500 ML IVC ONE (12:20)
--- NOTE | 2017-08-16 12:21 | Nephrology Consult Note ---
Date of Encounter: 08/16/17 Time of Encounter: 11:30 Assessment and Plan (1) HALIMA (acute kidney injury) Current Visit: Yes Status: Acute HALIMA/rabdo/hyperkalemia in setting of drug overdose, hypotension. IR consulted for temp catheter placement in anticipation of need for HD. No acute need for HD at present time. Will start IV D5W/bicarb. Recommend consulting ID regarding possible infective endocarditis and least nephrotoxic Atb coverage. Maintain araujo catheter, I&O. Will continue to monitor. Do not replace Calcium unless symptomatic arrythmia, tetany. Calcium sequestered in muscle and will release as muscle heals. History of Present Illness - Reason for Consult Acute Kidney Injury - History of Present Illness Mr. Jaramillo is a 27 year old male who presented to [place] with altered mental status, GCS 3 in setting of drug overdose, Intubated, Current vent FiO2.30 peep 5. On Diprivan drip, breathing over vent, use of accessory muscles. No family present, HPI obtained from prior notes. Positive for Benzos, meth, THC. Initial hypotension SBP 70-104. Received 4 L chrystalloids. Urology consulted for Araujo placement with urethral dilitation. Urine dark cola color. UA- large blood and protein. Renal US without acute findings. Labs initial creat 2.09 which has increased today 3.53. No prior renal labs available. Current urine output total since catheter placement is 600cc per nursing. CK> [address]. Initial lactic acid 4.0, now 2.0. Calcium currently 5.3 from 10.1. Carbon dioxide 18. Potassium 5.4. Head CT and CXR no acute findings. Cardiology consulted, troponin 6.82. ECHO showing small mobile hypodensity on Tricuspid valve. 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 Currently on Vancomycin. Plan for CHRISTY. Past Med Surg Social Fam HX - Past Medical History Medical history: non-contributory Psychiatric history: ADHD - Past Surgical History Surgical History: no surgical history - Social History Smoking Status: Current every day smoker Smokeless Tobacco Status: Yes Alcohol use: occasionally Drug use: marijuana, methamphetamine Medications and Allergies Unable To Obtain [Unable to Obtain] 08/16/17 [History] 3 Allergy/AdvReac Type Severity Reaction Status Date / Time No Known Allergies Allergy Verified 05/09/16 04:47 Review of Systems ROS unobtainable: due to endotracheal tube Exam - Vital Signs Vital signs: Initial Vital Signs Pulse Resp BP Pulse Ox 154 25 85/49 89 08/15/17 19:19 08/15/17 19:19 08/15/17 19:19 08/15/17 19:19 Vital Signs - Last 8 Hours Temp Pulse Resp BP Pulse Ox 08/16/17 11:33 35 93 08/16/17 10:32 36 90 08/16/17 08:44 115 08/16/17 08:22 34 93 08/16/17 08:00 115 20 114/87 92 08/16/17 07:00 97.8 F 114 25 105/83 93 08/16/17 06:00 114 25 97/71 95 08/16/17 05:46 26 101/70 97 08/16/17 05:00 115 17 109/73 96 08/16/17 04:44 97.9 F Intake and Output 08/15/17 08/16/17 08/16/17 23:59 07:59 15:59 Intake Total 20 / 120 2561 / 2561 7 / 7 Output Total 600 / 600 Balance 20 / 120 1960 / 1 7 / 7 Intake: IV Fluids 20 / 20 2561 / 2561 7 / 7 0.45% Sodium Chloride 1000 Ml 1200 / 1200 1000 Ml 500 ML @ 999 mls/hr IVC .Q31M YAEL Rx#:[id number] 0.9 % Sodium Chloride 1,000 ML 1000 / 1000 @ 3750 mls/hr IVC .Q16M ONE Rx# :[id number] Phenylephrine 10 MG In Dextrose 251 / 251 5% 250 ML @ 40 MCG/MIN 60.24 mls/hr IVC CONT YAEL Rx#: [id number] Phenylephrine 20 MG In Dextrose 7 / 7 5% 500 ML @ 40 MCG/MIN 60.24 mls/hr IVC CONT YAEL Rx#: [id number] Diprivan 1,000 mg In 100 ml @ 5 110 / 110 MCG/KG/MIN 2.994 mls/hr IVC . Q24H YAEL Rx#:[id number] Rocephin 2,000 MG In Water for 20 / 20 inj. (sterile) 20 ML @ 600 mls/ hr IVPB ONCE ONE Rx#:[id number] Output: Catheter 600 / 600 Other: Weight 86.6 kg Blood Glucose* 99 Patient Weight 08/16/17 23:59 Weight 86.6 kg - General Appearance General appearance: well-developed, well-nourished, appears started age Neck: no JVD Respiratory: course breath sounds Cardiology: no edema, regular rate, regular rhythm Gastrointestinal: hypoactive bowel sounds Integumentary: warm and dry Results - Lab Results 08/16/17 08:00 08/16/17 08:00 Most recent lab results ABG pH 7.28 pH Units (7.32-7.45) L 08/16/17 08:26 ABG pCO2 29 mmHg (35-45) L 08/16/17 08:26 ABG pO2 80 mmHg (85-104) L 08/16/17 08:26 ABG HCO3 14 mEq/L (21-27) L 08/16/17 08:26 ABG O2 Saturation 94 % (95-98) L 08/16/17 08:26 Calcium 5.3 mg/dL (8.6-10.3) L* 08/16/17 08:00 Phosphorus 10.1 mg/dL (2.7-4.5) H 08/16/17 03:25 Magnesium 3.1 mg/dL (1.6-2.6) H 08/16/17 03:25 Consult Discharge Plan - Plan Referrals: NONE,PCP [Primary Care Provider] -
[2017-08-16 12:24] LABS: Hepatitis B Surface Antigen Nonreactive (Nonreactive)
[2017-08-16 12:27] LABS: Hepatitis B Surface Antibody 8.98 mIU/mL
[2017-08-16] MEDS: Lacri-Lube 3.5 GM TUBE BOTH EYES SCH ×3 (12:36→20:31)
[2017-08-16] MEDS: Pantoprazole 40 MG VIAL IVP SCH (12:36)
[2017-08-16] MEDS: Calcium Gluconate 2,000 MG in 0.9 % Sodium Chloride 100 ML IVPB PRN (12:37)
[2017-08-16] MEDS: Sodium Bicarbonate 150 MEQ in D5% in Water 1,000 ML IVC SCH ×2 (13:11→21:05)
[2017-08-16] MEDS: FentaNYL (PF) 1,000 MCG in 0.9 % Sodium Chloride 80 ML IVC SCH ×2 (13:11→23:18)
[2017-08-16 13:41] LABS: Creatine Kinase > 20000 Units/L (30-223)
[2017-08-16] MEDS: *HR* Heparin 5,000 UNIT/ML VIAL SQ SCH ×2 (14:26→20:32)
[2017-08-16] MEDS ORDERED: *HR* Midazolam HCl 5 MG/5 ML VIAL IVP ONE (14:51)
[2017-08-16] MEDS ORDERED: *HR* Midazolam HCl 2 MG/2 ML VIAL IVP PRN (14:53)
--- NOTE | 2017-08-16 14:59 | IR Procedure Note ---
Date of procedure: 08/16/17 Consent Obtained: Verbal consent, Written consent Timeout: Correct patient and procedure verified, Correct site verified, Time out performed, Skin prep completed Local anesthetic: Lidocaine 1% Indications: ARF Procedure Performed: temp HDC placement Was there an digital marketing assistant present: No Site/Technique: RIJ Estimated blood loss (cc): 2 Complications: None; Tolerated procedure well Post Procedure Treatment Plan: CXR Specimen: none
--- NOTE | 2017-08-16 15:40 | EEG/EMG/Oth Biometrics Report ---
EEG Procedure Report Date of procedure: 08/16/17 EEG Procedure: Routine EEG Procedure Note: This is a report of a 21 channel bipolar and referential montage EEG. There is no posterior dominant alpha rhythm identified during the recording. The baseline rhythm in all leads symmetrically is that of 15 Hz spindle like activity. This persisted all leads throughout much of the recording. Also occasional movement artifact is identified. No other sleep architecture such as K complexes and vertex sharp waves are identified. Hyperventilation is not performed during the recording. Photic stimulation does not produce a driving response. The EKG rhythm strip reveals sinus tachycardia at 120 bpm. Impressions: This EEG recording is abnormal and is consistent with severe generalized encephalopathy. There is no evidence of epileptiform activity identified during the study. Comment: Etiologies to explain this interpretation might include toxic, metabolic, postictal, degenerative. Please correlate clinically.
[2017-08-16 17:21] LABS: VBG Ionized Calcium 0.68 mmol/L (1.15-1.35); VBG PH 7.22 pH Units (7.32-7.42)
[2017-08-16 17:33] LABS: Albumin 2.8 g/dL (3.5-5.7); Calcium 5.1 mg/dL (8.6-10.3); Phosphorous 9.6 mg/dL (2.7-4.5); Potassium 6.9 mEq/L (3.5-5.1)
[2017-08-16] MEDS ORDERED: Calcium Gluconate 2,000 MG in 0.9 % Sodium Chloride 100 ML IVPB ONE (17:45)
[2017-08-16] MEDS ORDERED: Insulin Human Regular 10 UNIT in 0.9 % Sodium Chloride 10 ML IV ONE (17:46)
[2017-08-16] MEDS ORDERED: *HR* Dextrose 50 % in Water (Syg) 50 ML SYRINGE IVP ONE (17:46)
[2017-08-16] MEDS ORDERED: *HR* Heparin 10,000 UNIT/10 ML VIAL IV PRN (18:34)
[2017-08-16] MEDS ORDERED: 0.9 % Sodium Chloride 250 ML IVC PRN (18:34)
[2017-08-16] MEDS ORDERED: 0.9 % Sodium Chloride 1,000 ML PRIME SCH (18:45)
[2017-08-16] MEDS: Chlorhexidine Rinse 15 ML MOUTHWASH MM SCH (20:30)
[2017-08-16] MEDS ORDERED: Vancomycin 1,250 MG in D5% in Water 250 ML IVPB SCH ×2 (23:00)
[2017-08-17] MEDS: Ipratropium/Albuterol Neb 3 ML IH SCH ×5 (03:24→21:33)
[2017-08-17] MEDS: Lacri-Lube 3.5 GM TUBE BOTH EYES SCH ×7 (03:28→23:11)
[2017-08-17] MEDS: Sodium Bicarbonate 150 MEQ in D5% in Water 1,000 ML IVC SCH (04:33)
[2017-08-17 04:34] LABS: Hemoglobin 14.9 g/dL (12.9-16.9); Immature Granulocytes % 0.8 % (0-4); Red Cell Distribution Width 13.6 % (11.5-14.5)
[2017-08-17 04:36] LABS: Basophils # 0.1 K/mcL (0.0-0.2); Basophils % 0.2 %; Immature Platelets 15.4 % (1.1-6.1); Lymphocytes % 7.8 %; Mean Corpuscular HGB Conc 33.1 g/dL (31.6-35.5); Mean Corpuscular Hemoglobin 28.4 pg (28.0-33.3); Mean Corpuscular Volume 85.9 fL (83.0-100.0); Mean Platelet Volume 11.8 fL (9.4-12.4); Monocytes # 1.6 K/mcL (0.0-1.3); Monocytes % 6.2 %; Neutrophils # 21.4 K/mcL (1.6-8.9); Nucleated Red Blood Cells 0.7 /100 WBC (0); Red Blood Count 5.24 M/mcL (4.19-5.50)
[2017-08-17 05:00] LABS: Albumin 2.6 g/dL (3.5-5.7); Calcium 5.9 mg/dL (8.6-10.3); Phosphorous 9.1 mg/dL (2.7-4.5); Potassium 3.9 mEq/L (3.5-5.1)
[2017-08-17] MEDS: *HR* Heparin 5,000 UNIT/ML VIAL SQ SCH ×3 (05:28→22:07)
[2017-08-17] MEDS: Calcium Gluconate 2,000 MG in 0.9 % Sodium Chloride 100 ML IVPB PRN (05:29)
[2017-08-17 06:02] LABS: Platelet Count 77 K/mcL (140-400)
[2017-08-17 06:24] LABS: ABG Base Excess 0 mEq/L (-2 to 3); ABG HCO3 26 mEq/L (21-27); ABG Oxygen Saturation 98 % (95-98); ABG PCO2 44 mmHg (35-45); ABG PH 7.38 pH Units (7.32-7.45); ABG PO2 105 mmHg (85-104); ABG TCO2 27 mEq/L (20-26); Blood Gas Modality ASSIST CONTROL; Blood Gas PEEP 5 cm H2O; Blood Gas Respiration Rate 12; Blood Gas VT 500 cc
--- NOTE | 2017-08-17 06:52 | Pulmonology Progress Note ---
<MaryMaverick W - Last Filed: 08/17/17 11:07> Date of Encounter: 08/17/17 Objective PUL Vital signs: Last Vital Signs Temp 97.7 F 08/17/17 07:25 Pulse 130 08/17/17 09:00 Resp 17 08/17/17 09:00 BP 96/77 08/17/17 09:00 Pulse Ox 100 08/17/17 09:00 Ventilator Settings Ventilator Settings: Ventilator Settings, Last 8 Hours Ventilator Mode A/C Ventilator Mode A/C Ventilator Mode A/C Ventilator Mode A/C Ventilator Mode A/C Ventilator Mode A/C Ventilator Mode A/C Ventilator Mode A/C Ventilator Mode A/C Ventilator Mode A/C Ventilator Tidal Volume 500 Setting Ventilator Tidal Volume 500 Setting Ventilator Tidal Volume 500 Setting Ventilator Tidal Volume 500 Setting Ventilator Tidal Volume 500 Setting Ventilator Tidal Volume 500 Setting Ventilator Tidal Volume 500 Setting Ventilator Tidal Volume 500 Setting Ventilator Tidal Volume 500 Setting Ventilator Tidal Volume 500 Setting Ventilator Respiratory Rate 12 Setting Ventilator Respiratory Rate 12 Setting Ventilator Respiratory Rate 12 Setting Ventilator Respiratory Rate 12 Setting Ventilator Respiratory Rate 12 Setting Ventilator Respiratory Rate 12 Setting Ventilator Respiratory Rate 12 Setting Ventilator Respiratory Rate 14 Setting Ventilator Respiratory Rate 14 Setting Ventilator Respiratory Rate 14 Setting Actual Respiratory Rate 17 Actual Respiratory Rate 20 Actual Respiratory Rate 16 Actual Respiratory Rate 19 Positive End Expiratory 5 Pressure Positive End Expiratory 5 Pressure Positive End Expiratory 5 Pressure Positive End Expiratory 5 Pressure Positive End Expiratory 5 Pressure Positive End Expiratory 5 Pressure Positive End Expiratory 5 Pressure Positive End Expiratory 5 Pressure Positive End Expiratory 5 Pressure Positive End Expiratory 5 Pressure Peak Inspiratory Airway 20 Pressure Peak Inspiratory Airway 20 Pressure Peak Inspiratory Airway 20 Pressure Peak Inspiratory Airway 19 Pressure Results - Laboratory Findings CBC and BMP: 08/17/17 04:00 08/17/17 04:05 ABG ABG pH 7.38 pH Units (7.32-7.45) 08/17/17 06:20 ABG pCO2 44 mmHg (35-45) 08/17/17 06:20 ABG pO2 105 mmHg (85-104) H 08/17/17 06:20 ABG O2 Saturation 98 % (95-98) 08/17/17 06:20 PT/INR, D-dimer PT 19.8 Seconds (9.4-12.1) H 08/16/17 11:07 Abnormal lab findings: Abnormal lab results WBC 25.2 K/mcL (4.3-11.1) H D 08/17/17 04:00 Plt Count 77 K/mcL (140-400) L 08/17/17 04:00 Neutrophils # 21.4 K/mcL (1.6-8.9) H 08/17/17 04:00 Monocytes # 1.6 K/mcL (0.0-1.3) H 08/17/17 04:00 Nucleated RBCs/100 WBC 0.7 /100 WBC (0) H 08/17/17 04:00 Reactive Lymphocytes Present (Not Present) A 08/16/17 03:25 Smudge Cells Present (Not Present) A 08/16/17 03:25 Toxic Granulation Present (Not Present) A 08/16/17 03:25 Immature Plt Fraction 15.4 % (1.1-6.1) H 08/17/17 04:00 Anisocytosis 1+ (Not Present) A 08/16/17 03:25 PT 19.8 Seconds (9.4-12.1) H 08/16/17 11:07 ABG pO2 105 mmHg (85-104) H 08/17/17 06:20 ABG Total CO2 27 mEq/L (20-26) H 08/17/17 06:20 VBG pH 7.22 pH Units (7.32-7.42) L 08/16/17 17:18 Carbon Dioxide 33 mEq/L (23-29) H 08/17/17 04:05 BUN 34 mg/dL (6-20) H 08/17/17 04:05 Creatinine 4.57 mg/dL (0.70-1.30) H 08/17/17 04:05 Est GFR ( Amer) 19 (> 60) L 08/17/17 04:05 Est GFR (Non-Af Amer) 16 (> 60) L 08/17/17 04:05 Glucose 145 mg/dL (70-105) H 08/17/17 04:05 POC Glucose 119 (58-89) H 08/17/17 07:18 Calcium 5.9 mg/dL (8.6-10.3) L* 08/17/17 04:05 Venous Ioniz Calcium 0.68 mmol/L (1.15-1.35) L 08/16/17 17:18 Phosphorus 9.1 mg/dL (2.7-4.5) H 08/17/17 04:05 Magnesium 3.1 mg/dL (1.6-2.6) H 08/16/17 03:25 Creatine Kinase > 02948 Units/L (30-223) H 08/16/17 08:00 Troponin I 6.82 ng/mL (< 0.04) H* 08/16/17 08:00 Albumin 2.6 g/dL (3.5-5.7) L 08/17/17 04:05 Urine Color Red (Yellow) A 08/15/17 22:14 Urine Clarity Cloudy (Clear) A 08/15/17 22:14 Urine Protein 100 mg/dL (Neg-Trace) H 08/15/17 22:14 Urine Blood Large (Negative) H 08/15/17 22:14 Ur Leukocyte Esterase Small (Negative) H 08/15/17 22:14 Urine Microscopic RBC TNTC per hpf (0-3) H 08/15/17 22:14 Vancomycin Trough 24.7 mcg/mL (10-20) H* 08/16/17 18:50 Salicylates < 5.0 mg/dL (15.0-30.0) L 08/15/17 19:41 Acetaminophen < 1.0 mcg/mL (10-30) L 08/15/17 19:41 Ur Amphetamines Screen Positive ng/mL (Tylbpg=3629) H 08/15/17 22:14 U Benzodiazepines Scrn Positive ng/mL (Tatbiw=324) H 08/15/17 22:14 U Marijuana (THC) Screen Positive ng/mL (Cutoff = 50) H 08/15/17 22:14 - Clinical Findings Intake & Output: Intake & Output 08/16/17 08/17/17 08/17/17 23:59 07:59 15:59 Intake Total 2344 / 2344 1330.5 / 1330.5 Output Total 650 / 650 0 / 0 Balance 1694 / 1694 1330.5 / 1330.5 Weight 91.4 kg Consult Discharge Plan - Plan Referrals: NONE,PCP [Primary Care Provider] - - Attending Attestation I examined this patient and my medical decision-making was reviewed with the Resident Physician. I agree with the documented findings, disposition and treatment plan as described except to the extent set forth below. We independently had [id number] contact with the patient I spent 33min of Critical Care time with this patient. It involved decision making of high complexity to assess, manipulate, and support vital organ system failure and/or to prevent further life threatening deterioration of the patient' s condition. The time involved in the performance of separately reportable procedures was not counted toward critical care time. Patient seen and examined at bedside Labs, radiology, chart personally reviewed. Management was reviewed during multidisciplinary critical care rounds. PROJECT DESIGNER: More awake today able to follow some simple commands no neurological deficit continue narcotic infusion for analgesia. I do not feel that he had clinical evidence of meningitis. Pulm: Acceptable gas exchange today no evidence of aspiration on chest x-ray not a candidate for spontaneous breathing trial because of need for acute surgical intervention we will reassess Cards: Hypotension has resolved TE performed without evidence of endocarditis I suspect that global LV dysfunction related to toxic ingestion and is improving. Lactate has normalized FEN-GI: Nothing by mouth for now GI prophylaxis given Renal: Acute kidney injury complicated by rhabdomyolysis requiring renal replacement nephrology following potassium better controlled today plan for dialysis after surgery. He remains anuric we will continue to trend his electrolytes ID: Systemic inflammatory response syndrome without clear evidence of sepsis he is on antibiotics for possibility of infection with planned to de-escalate Heme/Onc: DVT prophylaxis given Endo: Glucose Monitored Integ/MSK: Acute compartment syndrome in the right lower leg prompting orthopedic consultation with planned for emergent fasciotomy. Patient presented yesterday with rhabdomyolysis but without evidence of compartment syndrome at that time and was more attributable to toxic ingestion. Skin Care per routine ICU Nursing Protocol to prevent ulcers. Lines: All lines examined without evidence of infection : Dispo: Remain ICU for critical illness CODE: Mother updated at bedside all questions answered <Ayad Trivedi - Last Filed: 08/17/17 12:07> Date of Encounter: 08/17/17 Time of Encounter: 06:51 Assessment and Plan (1) Shock Current Visit: Yes Status: Acute Likely etiology is toxidrome versus infectious Patient has been fluid responsive since admission Blood pressure was 90s over 70s this morning Heart rate up to 130s as morning We will continue to monitor closely and correct electrolyte abnormalities today Patient is high-risk as he will proceed to the operating room for emergent fasciotomy for his right lower extremity (2) Compartment syndrome of right lower extremity Current Visit: Yes Status: Acute Patient was able to follow commands this morning kept moving his right lower extremity On examination his right lower extremity was extremely taut with evident elevation in pressure on palpation. No visible wincing during exam With the surgery was consulted to rule out compartment syndrome Eliz needle was inserted into 3 compartments resulting in elevated pressures in all 3 and will proceed to the operating room today for emergent fasciotomy Underwent successful fasciotomy of the right lower extremity this morning by ortho Wound VAC in place Qualifiers: Encounter type: initial encounter Qualified Code(s): T79.A21A - Traumatic compartment syndrome of right lower extremity, initial encounter (3) Lactic acidosis Current Visit: Yes Status: Acute History trended down from 9.6-2.0 yesterday We will continue to monitor (4) Substance abuse Current Visit: Yes Status: Acute There is apparent visualization of ingestion from another inmate Toxicology was positive for amphetamines, benzodiazepines and THC (5) Tachycardia Current Visit: Yes Status: Acute Likely due to this toxidrome Heart rate is increased to 130s this morning and will recheck with the 12-lead (6) Elevated troponin Current Visit: Yes Status: Acute Troponin trended from 0.112 4.65-6.[address] elevation or depression noted on EKG Echocardiogram demonstrates EF of 35% with global systolic dysfunction Cardiology consulted and agreed that this is likely due to rhabdomyolysis, shock and HALIMA due to the unlikely nature of ischemic cardiomyopathy given his age (7) HALIMA (acute kidney injury) Current Visit: Yes Status: Acute Creatinine down to 4.57 Possible etiology from rhabdo as well as possible side effect of acyclovir for suspected meningitis on admission 2 days ago Plan for dialysis this afternoon. 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 Patient is able to open eyes and follows simple commands this morning He continues to move his right lower extremity and appears uncomfortable No overnight events per nursing Objective PUL Vital signs: Last Vital Signs Temp 97.8 F 08/17/17 03:26 Pulse 129 08/17/17 06:00 Resp 12 08/17/17 06:00 BP 100/71 08/17/17 06:00 Pulse Ox 100 08/17/17 06:00 General appearance: appears uncomfortable Eyes: nonicteric ENT: oropharynx moist (ET tube present) Effort: normal Auscultation: bilateral: clear Cardiovascular: irregular rhythm (Tachycardia) Gastrointestinal: normoactive bowel sounds, non-distended Integumentary: normal Extremities: other (Right lower extremity: Taut, elevated pressure on palpation , pain with palpation and intermittent pulselessness) Gait: other (see extremity) other (Patient will awaken when prompted and follow simple commands) Ventilator Settings Ventilator Settings: Ventilator Settings, Last 8 Hours Ventilator Mode A/C Ventilator Mode A/C Ventilator Mode A/C Ventilator Mode A/C Ventilator Mode A/C Ventilator Mode A/C Ventilator Mode A/C Ventilator Mode A/C Ventilator Mode A/C Ventilator Mode A/C Ventilator Mode A/C Ventilator Tidal Volume 500 Setting Ventilator Tidal Volume 500 Setting Ventilator Tidal Volume 500 Setting Ventilator Tidal Volume 500 Setting Ventilator Tidal Volume 500 Setting Ventilator Tidal Volume 500 Setting Ventilator Tidal Volume 500 Setting Ventilator Tidal Volume 500 Setting Ventilator Tidal Volume 500 Setting Ventilator Tidal Volume 500 Setting Ventilator Tidal Volume 500 Setting Ventilator Respiratory Rate 12 Setting Ventilator Respiratory Rate 12 Setting Ventilator Respiratory Rate 12 Setting Ventilator Respiratory Rate 12 Setting Ventilator Respiratory Rate 14 Setting Ventilator Respiratory Rate 14 Setting Ventilator Respiratory Rate 14 Setting Ventilator Respiratory Rate 14 Setting Ventilator Respiratory Rate 14 Setting Ventilator Respiratory Rate 14 Setting Ventilator Respiratory Rate 14 Setting Actual Respiratory Rate 19 Actual Respiratory Rate 20 Actual Respiratory Rate 27 Positive End Expiratory 5 Pressure Positive End Expiratory 5 Pressure Positive End Expiratory 5 Pressure Positive End Expiratory 5 Pressure Positive End Expiratory 5 Pressure Positive End Expiratory 5 Pressure Positive End Expiratory 5 Pressure Positive End Expiratory 5 Pressure Positive End Expiratory 5 Pressure Positive End Expiratory 5 Pressure Positive End Expiratory 5 Pressure Peak Inspiratory Airway 19 Pressure Peak Inspiratory Airway 18 Pressure Peak Inspiratory Airway 18 Pressure Results - Laboratory Findings CBC and BMP: 08/17/17 04:00 08/17/17 04:05 ABG ABG pH 7.38 pH Units (7.32-7.45) 08/17/17 06:20 ABG pCO2 44 mmHg (35-45) 08/17/17 06:20 ABG pO2 105 mmHg (85-104) H 08/17/17 06:20 ABG O2 Saturation 98 % (95-98) 08/17/17 06:20 PT/INR, D-dimer PT 19.8 Seconds (9.4-12.1) H 08/16/17 11:07 Abnormal lab findings: Abnormal lab results WBC 25.2 K/mcL (4.3-11.1) H D 08/17/17 04:00 Plt Count 77 K/mcL (140-400) L 08/17/17 04:00 Neutrophils # 21.4 K/mcL (1.6-8.9) H 08/17/17 04:00 Monocytes # 1.6 K/mcL (0.0-1.3) H 08/17/17 04:00 Nucleated RBCs/100 WBC 0.7 /100 WBC (0) H 08/17/17 04:00 Reactive Lymphocytes Present (Not Present) A 08/16/17 03:25 Smudge Cells Present (Not Present) A 08/16/17 03:25 Toxic Granulation Present (Not Present) A 08/16/17 03:25 Immature Plt Fraction 15.4 % (1.1-6.1) H 08/17/17 04:00 Anisocytosis 1+ (Not Present) A 08/16/17 03:25 PT 19.8 Seconds (9.4-12.1) H 08/16/17 11:07 ABG pO2 105 mmHg (85-104) H 08/17/17 06:20 ABG Total CO2 27 mEq/L (20-26) H 08/17/17 06:20 VBG pH 7.22 pH Units (7.32-7.42) L 08/16/17 17:18 Carbon Dioxide 33 mEq/L (23-29) H 08/17/17 04:05 BUN 34 mg/dL (6-20) H 08/17/17 04:05 Creatinine 4.57 mg/dL (0.70-1.30) H 08/17/17 04:05 Est GFR ( Amer) 19 (> 60) L 08/17/17 04:05 Est GFR (Non-Af Amer) 16 (> 60) L 08/17/17 04:05 Glucose 145 mg/dL (70-105) H 08/17/17 04:05 POC Glucose 132 (58-89) H 08/17/17 03:31 Calcium 5.9 mg/dL (8.6-10.3) L* 08/17/17 04:05 Venous Ioniz Calcium 0.68 mmol/L (1.15-1.35) L 08/16/17 17:18 Phosphorus 9.1 mg/dL (2.7-4.5) H 08/17/17 04:05 Magnesium 3.1 mg/dL (1.6-2.6) H 08/16/17 03:25 Creatine Kinase > 80332 Units/L (30-223) H 08/16/17 08:00 Troponin I 6.82 ng/mL (< 0.04) H* 08/16/17 08:00 Albumin 2.6 g/dL (3.5-5.7) L 08/17/17 04:05 Urine Color Red (Yellow) A 08/15/17 22:14 Urine Clarity Cloudy (Clear) A 08/15/17 22:14 Urine Protein 100 mg/dL (Neg-Trace) H 08/15/17 22:14 Urine Blood Large (Negative) H 08/15/17 22:14 Ur Leukocyte Esterase Small (Negative) H 08/15/17 22:14 Urine Microscopic RBC TNTC per hpf (0-3) H 08/15/17 22:14 Vancomycin Trough 24.7 mcg/mL (10-20) H* 08/16/17 18:50 Salicylates < 5.0 mg/dL (15.0-30.0) L 08/15/17 19:41 Acetaminophen < 1.0 mcg/mL (10-30) L 08/15/17 19:41 Ur Amphetamines Screen Positive ng/mL (Bkhxxk=7165) H 08/15/17 22:14 U Benzodiazepines Scrn Positive ng/mL (Fztgbd=336) H 08/15/17 22:14 U Marijuana (THC) Screen Positive ng/mL (Cutoff = 50) H 08/15/17 22:14 - Clinical Findings Intake & Output: Intake & Output 08/16/17 08/16/17 08/17/17 15:59 23:59 07:59 Intake Total 1844 / 1844 2344 / 2344 1330.5 / 1330.5 Output Total 50 / 50 650 / 650 0 / 0 Balance 1794 / 1794 1694 / 1694 1330.5 / 1330.5 Weight 91.4 kg - VTE Documentation of Mechanical Device: Intermittent pneumatic compression device
[2017-08-17] MEDS ORDERED: Vancomycin 1 EACH in EMPTY BAG 1 EACH IVPB SCH (09:00)
[2017-08-17] MEDS: Pantoprazole 40 MG VIAL IVP SCH (09:10)
[2017-08-17] MEDS: Chlorhexidine Rinse 15 ML MOUTHWASH MM SCH ×2 (09:16→20:52)
--- NOTE | 2017-08-17 09:19 | Orthopedic Consult Note ---
Date of Encounter: 08/17/17 Time of Encounter: 09:00 Assessment and Plan (1) Compartment syndrome of right lower extremity Current Visit: Yes Status: Acute I did discuss the diagnosis in detail with the patient's mother who is at the bedside. The patient has compartment syndrome of the right leg. My recommendation was to proceed with an emergent 4 compartment fasciotomy. The patient is a risk of loss of limb regardless of treatment options however the goal is to reduce the risk with the fasciotomy and to relieve the pressure of the muscular compartments. The risks discussed included but were not limited to stiffness, bleeding, infection, blood clots, damage to neurovascular structures, tendons, ligaments, and bone. Also discussed was the risk of continued symptoms and possible need for further procedures. I did discuss the anesthesia risks including stroke, heart attack, and . The patient is at risk for further debridement and possible amputation. The mother did wish to proceed and consent was obtained. We will proceed to the operating room. Qualifiers: Qualified Code(s): T79.A21A - Traumatic compartment syndrome of right lower extremity, initial encounter History of Present Illness HPI: Mr. Jaramillo is a 27 year old male admitted to the hospitalist and in the ICU for presumed toxic congestion. He was unresponsive for a while but has recovered some responsiveness and was complaining of right leg pain. The sequential compression device was taken off this morning and the right leg was noted to be taut and he was not moving his foot well. Her speech was consulted for concern for compartment syndrome. My evaluation the patient is unable to verbalize any complaints and is intubated in the ICU. He does react to stimuli , however. I am able to obtain any history from the patient or the mother who is at the bedside. Past Med Surg Social Fam HX - Past Medical History Medical history: non-contributory Psychiatric history: ADHD - Past Surgical History Surgical History: no surgical history - Social History Smoking Status: Current every day smoker Smokeless Tobacco Status: Yes Alcohol use: occasionally Drug use: marijuana, methamphetamine Medications and Allergies Unable To Obtain [Unable to Obtain] 08/16/17 [History] 3 Allergy/AdvReac Type Severity Reaction Status Date / Time No Known Allergies Allergy Verified 05/09/16 04:47 ROS unobtainable: due to mental status Physical Exam - Constitutional Vitals: Temp Pulse Resp BP Pulse Ox 97.7 F 130 19 93/71 100 08/17/17 07:25 08/17/17 08:00 08/17/17 08:28 08/17/17 08:28 08/17/17 08:28 Constitutional -Vitals reviewed -The patient is well developed and well nourished. Psychiatric -Intubated on the ventilator Respiratory: -Respiratory effort normal Left lower extremity: -The overlying skin is intact and there are no deformities. -No redness or concern for infection -Thigh and leg compartments are soft and compressible -Unable to obtain a neurologic exam given his mental status -The foot is warm and well perfused with good capillary refill Right lower extremity: -Overlying skin is intact with no deformities. -Significant swelling of the leg compartment with tautness. -Thigh compartment is soft and compressible. -Unable to perform a neurologic exam due to his mental status. -And a passive motion of the ankle and the toes does cause him to jump and wince in pain. -Unable to palpate definite for pulses however these were dopplerable by the ICU team. -The foot is warm and with good capillary refill. Right compartment pressure measurements: 104 mmHg to the anterior compartment 70 mmHg mercury to the lateral compartment 65 mmHg to the superficial posterior compartment Results - Labs Result Diagrams: 08/17/17 04:00 08/17/17 04:05 Labs: Abnormal lab results WBC 25.2 K/mcL (4.3-11.1) H D 08/17/17 04:00 Plt Count 77 K/mcL (140-400) L 08/17/17 04:00 Neutrophils # 21.4 K/mcL (1.6-8.9) H 08/17/17 04:00 Monocytes # 1.6 K/mcL (0.0-1.3) H 08/17/17 04:00 Nucleated RBCs/100 WBC 0.7 /100 WBC (0) H 08/17/17 04:00 Reactive Lymphocytes Present (Not Present) A 08/16/17 03:25 Smudge Cells Present (Not Present) A 08/16/17 03:25 Toxic Granulation Present (Not Present) A 08/16/17 03:25 Immature Plt Fraction 15.4 % (1.1-6.1) H 08/17/17 04:00 Anisocytosis 1+ (Not Present) A 08/16/17 03:25 PT 19.8 Seconds (9.4-12.1) H 08/16/17 11:07 ABG pO2 105 mmHg (85-104) H 08/17/17 06:20 ABG Total CO2 27 mEq/L (20-26) H 08/17/17 06:20 VBG pH 7.22 pH Units (7.32-7.42) L 08/16/17 17:18 Carbon Dioxide 33 mEq/L (23-29) H 08/17/17 04:05 BUN 34 mg/dL (6-20) H 08/17/17 04:05 Creatinine 4.57 mg/dL (0.70-1.30) H 08/17/17 04:05 Est GFR ( Amer) 19 (> 60) L 08/17/17 04:05 Est GFR (Non-Af Amer) 16 (> 60) L 08/17/17 04:05 Glucose 145 mg/dL (70-105) H 08/17/17 04:05 POC Glucose 119 (58-89) H 08/17/17 07:18 Calcium 5.9 mg/dL (8.6-10.3) L* 08/17/17 04:05 Venous Ioniz Calcium 0.68 mmol/L (1.15-1.35) L 08/16/17 17:18 Phosphorus 9.1 mg/dL (2.7-4.5) H 08/17/17 04:05 Magnesium 3.1 mg/dL (1.6-2.6) H 08/16/17 03:25 Creatine Kinase > 59818 Units/L (30-223) H 08/16/17 08:00 Troponin I 6.82 ng/mL (< 0.04) H* 08/16/17 08:00 Albumin 2.6 g/dL (3.5-5.7) L 08/17/17 04:05 Urine Color Red (Yellow) A 08/15/17 22:14 Urine Clarity Cloudy (Clear) A 08/15/17 22:14 Urine Protein 100 mg/dL (Neg-Trace) H 08/15/17 22:14 Urine Blood Large (Negative) H 08/15/17 22:14 Ur Leukocyte Esterase Small (Negative) H 08/15/17 22:14 Urine Microscopic RBC TNTC per hpf (0-3) H 08/15/17 22:14 Vancomycin Trough 24.7 mcg/mL (10-20) H* 08/16/17 18:50 Salicylates < 5.0 mg/dL (15.0-30.0) L 08/15/17 19:41 Acetaminophen < 1.0 mcg/mL (10-30) L 08/15/17 19:41 Ur Amphetamines Screen Positive ng/mL (Yzdeot=0485) H 08/15/17 22:14 U Benzodiazepines Scrn Positive ng/mL (Nftzhu=530) H 08/15/17 22:14 U Marijuana (THC) Screen Positive ng/mL (Cutoff = 50) H 08/15/17 22:14 H & H 08/17/17 Range/Units 04:00 Hgb 14.9 (12.9-16.9) g/dL Hct 45.0 (37.5-50.1) % All other labs normal. Consult Discharge Plan - Plan Referrals: NONE,PCP [Primary Care Provider] -
--- NOTE | 2017-08-17 09:33 | Urology Progress Note ---
Date of Encounter: 08/17/17 Time of Encounter: 09:31 - Assessment and Plan (1) Urethral stricture Current Visit: Yes Status: Acute Assessment and plan: Urethral stricture and a 27-year-old man. Concern now is for right leg compartment syndrome. 1. Continue Baird catheter. 2. I will follow on a peripheral basis. I recommend continue his catheter for 2 weeks to allow the urethra to heal. Please call with any questions. 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 Catheter is draining well. New concern for right leg compartment syndrome. He is on hemodialysis. Objective Initial Vital Signs Pulse Resp BP Pulse Ox 154 25 85/49 89 08/15/17 19:19 08/15/17 19:19 08/15/17 19:19 08/15/17 19:19 - General physical appearance Present: other (Intubated sedated) - Genitourinary Urine Appearance: Present: Hematuria (Dark meaghan urine which is scant. Catheter in place.) - Labs 08/17/17 04:00 08/17/17 04:05 Diabetes panel 08/16/17 08/16/17 08/16/17 Range/Units 08:00 16:50 16:50 Sodium 136 136 (136-145) mEq/L Potassium 5.4 H 6.9 H* D (3.5-5.1) mEq/L Chloride 108 H 108 H (98-107) mEq/L Carbon Dioxide 18 L 21 L (23-29) mEq/L BUN 39 H 50 H (6-20) mg/dL Creatinine 3.53 H 4.62 H (0.70-1.30) mg/dL Glucose 117 H 163 H (70-105) mg/dL Calcium 5.3 L* TNP 5.1 L* (8.6-10.3) mg/dL Albumin 2.8 L (3.5-5.7) g/dL 08/17/17 Range/Units 04:05 Sodium 138 (136-145) mEq/L Potassium 3.9 D (3.5-5.1) mEq/L Chloride 101 (98-107) mEq/L Carbon Dioxide 33 H (23-29) mEq/L BUN 34 H (6-20) mg/dL Creatinine 4.57 H (0.70-1.30) mg/dL Glucose 145 H (70-105) mg/dL Calcium 5.9 L* (8.6-10.3) mg/dL Albumin 2.6 L (3.5-5.7) g/dL Calcium panel 08/16/17 08/16/17 08/16/17 Range/Units 08:00 16:50 16:50 Calcium 5.3 L* TNP 5.1 L* (8.6-10.3) mg/dL Phosphorus TNP 9.6 H Albumin 2.8 L (3.5-5.7) g/dL 08/17/17 Range/Units 04:05 Calcium 5.9 L* (8.6-10.3) mg/dL Phosphorus 9.1 H Albumin 2.6 L (3.5-5.7) g/dL Pituitary panel 08/16/17 08/16/17 08/16/17 Range/Units 08:00 16:50 16:50 Sodium 136 136 (136-145) mEq/L Potassium 5.4 H 6.9 H* D (3.5-5.1) mEq/L Chloride 108 H 108 H (98-107) mEq/L Carbon Dioxide 18 L 21 L (23-29) mEq/L BUN 39 H 50 H (6-20) mg/dL Creatinine 3.53 H 4.62 H (0.70-1.30) mg/dL Glucose 117 H 163 H (70-105) mg/dL Calcium 5.3 L* TNP 5.1 L* (8.6-10.3) mg/dL 08/17/17 Range/Units 04:05 Sodium 138 (136-145) mEq/L Potassium 3.9 D (3.5-5.1) mEq/L Chloride 101 (98-107) mEq/L Carbon Dioxide 33 H (23-29) mEq/L BUN 34 H (6-20) mg/dL Creatinine 4.57 H (0.70-1.30) mg/dL Glucose 145 H (70-105) mg/dL Calcium 5.9 L* (8.6-10.3) mg/dL Adrenal panel 08/16/17 08/16/17 08/16/17 Range/Units 08:00 16:50 16:50 Sodium 136 136 (136-145) mEq/L Potassium 5.4 H 6.9 H* D (3.5-5.1) mEq/L Chloride 108 H 108 H (98-107) mEq/L Carbon Dioxide 18 L 21 L (23-29) mEq/L BUN 39 H 50 H (6-20) mg/dL Creatinine 3.53 H 4.62 H (0.70-1.30) mg/dL Glucose 117 H 163 H (70-105) mg/dL Calcium 5.3 L* TNP 5.1 L* (8.6-10.3) mg/dL Albumin 2.8 L (3.5-5.7) g/dL 08/17/17 Range/Units 04:05 Sodium 138 (136-145) mEq/L Potassium 3.9 D (3.5-5.1) mEq/L Chloride 101 (98-107) mEq/L Carbon Dioxide 33 H (23-29) mEq/L BUN 34 H (6-20) mg/dL Creatinine 4.57 H (0.70-1.30) mg/dL Glucose 145 H (70-105) mg/dL Calcium 5.9 L* (8.6-10.3) mg/dL Albumin 2.6 L (3.5-5.7) g/dL - VTE Documentation of Mechanical Device: Intermittent pneumatic compression device Consult Discharge Plan - Plan Referrals: NONE,PCP [Primary Care Provider] -
--- NOTE | 2017-08-17 09:38 | Anesthesia Evaluation PreOp ---
Date of Encounter: 08/17/17 Time of Encounter: 09:36 - Past History Planned Operation: RLE Fasciotomy Alcohol Use: occasionally Drug use: marijuana, methamphetamine Medications and Allergies Unable To Obtain [Unable to Obtain] 08/16/17 [History] 3 Allergy/AdvReac Type Severity Reaction Status Date / Time No Known Allergies Allergy Verified 05/09/16 04:47 - Meds/Allergy Pre-op Review Medications Reviewed: Yes Allergies Reviewed: Yes Beta Blockers on Current Med List: No Anesthesia Results - Labs 08/17/17 04:00 08/17/17 04:05 Laboratory Results WBC 25.2 K/mcL (4.3-11.1) H D 08/17/17 04:00 RBC 5.24 M/mcL (4.19-5.50) 08/17/17 04:00 Hgb 14.9 g/dL (12.9-16.9) 08/17/17 04:00 Hct 45.0 % (37.5-50.1) 08/17/17 04:00 MCV 85.9 fL (83.0-100.0) 08/17/17 04:00 MCH 28.4 pg (28.0-33.3) 08/17/17 04:00 MCHC 33.1 g/dL (31.6-35.5) 08/17/17 04:00 RDW 13.6 % (11.5-14.5) 08/17/17 04:00 Plt Count 77 K/mcL (140-400) L 08/17/17 04:00 MPV 11.8 fL (9.4-12.4) 08/17/17 04:00 Immature Gran % 0.8 % (0-4) 08/17/17 04:00 Seg Neutrophils % 85.0 % 08/17/17 04:00 Lymphocytes % 7.8 % 08/17/17 04:00 Monocytes % 6.2 % 08/17/17 04:00 Eosinophils % 0.0 % 08/17/17 04:00 Basophils % 0.2 % 08/17/17 04:00 Neutrophils # 21.4 K/mcL (1.6-8.9) H 08/17/17 04:00 Lymphocytes # 2.0 K/mcL (0.6-4.6) 08/17/17 04:00 Monocytes # 1.6 K/mcL (0.0-1.3) H 08/17/17 04:00 Eosinophils # 0.0 K/mcL (0.0-0.6) 08/17/17 04:00 Basophils # 0.1 K/mcL (0.0-0.2) 08/17/17 04:00 Nucleated RBCs/100 WBC 0.7 /100 WBC (0) H 08/17/17 04:00 Reactive Lymphocytes Present (Not Present) A 08/16/17 03:25 Smudge Cells Present (Not Present) A 08/16/17 03:25 Toxic Granulation Present (Not Present) A 08/16/17 03:25 Platelet Estimate Normal (Normal) 08/16/17 03:25 Immature Plt Fraction 15.4 % (1.1-6.1) H 08/17/17 04:00 Anisocytosis 1+ (Not Present) A 08/16/17 03:25 PT 19.8 Seconds (9.4-12.1) H 08/16/17 11:07 INR 1.8 08/16/17 11:07 APTT 28.9 Seconds (26.0-36.0) 08/16/17 11:07 Sample Site R Radial 08/17/17 06:20 ABG pH 7.38 pH Units (7.32-7.45) 08/17/17 06:20 ABG pCO2 44 mmHg (35-45) 08/17/17 06:20 ABG pO2 105 mmHg (85-104) H 08/17/17 06:20 ABG HCO3 26 mEq/L (21-27) 08/17/17 06:20 ABG Total CO2 27 mEq/L (20-26) H 08/17/17 06:20 ABG O2 Saturation 98 % (95-98) 08/17/17 06:20 ABG Base Excess 0 mEq/L (-2 to 3) 08/17/17 06:20 Dave Test N/A 08/17/17 06:20 VBG pH 7.22 pH Units (7.32-7.42) L 08/16/17 17:18 Respiration Rate 12 08/17/17 06:20 O2 Delivery Device Adult Vent 08/17/17 06:20 Blood Gas Modality ASSIST CONTROL 08/17/17 06:20 Inspired O2 30.0 (1-15=lpm [id number]=%) 08/17/17 06:20 Tidal Volume 500 cc 08/17/17 06:20 PEEP 5 cm H2O 08/17/17 06:20 Sodium 138 mEq/L (136-145) 08/17/17 04:05 Potassium 3.9 mEq/L (3.5-5.1) D 08/17/17 04:05 Chloride 101 mEq/L (98-107) 08/17/17 04:05 Carbon Dioxide 33 mEq/L (23-29) H 08/17/17 04:05 BUN 34 mg/dL (6-20) H 08/17/17 04:05 Creatinine 4.57 mg/dL (0.70-1.30) H 08/17/17 04:05 Est GFR ( Amer) 19 (> 60) L 08/17/17 04:05 Est GFR (Non-Af Amer) 16 (> 60) L 08/17/17 04:05 BUN/Creatinine Ratio 7 (6-26) 08/17/17 04:05 Glucose 145 mg/dL (70-105) H 08/17/17 04:05 POC Glucose 119 (58-89) H 08/17/17 07:18 Calculated Osmolality 296 (280-300) 08/17/17 04:05 Lactic Acid 2.0 mmol/L (0.5-2.2) 08/16/17 08:00 Calcium 5.9 mg/dL (8.6-10.3) L* 08/17/17 04:05 Venous Ioniz Calcium 0.68 mmol/L (1.15-1.35) L 08/16/17 17:18 Phosphorus 9.1 mg/dL (2.7-4.5) H 08/17/17 04:05 Magnesium 3.1 mg/dL (1.6-2.6) H 08/16/17 03:25 Total Bilirubin 0.4 mg/dL (0.3-1.0) 08/15/17 19:41 Direct Bilirubin 0.1 mg/dL (0.0-0.2) 08/15/17 19:41 Indirect Bilirubin 0.3 mg/dL (0.0-1.2) 08/15/17 19:41 AST 25 Units/L (13-39) 08/15/17 19:41 ALT 26 Units/L (7-52) 08/15/17 19:41 Alkaline Phosphatase 71 Units/L (34-104) 08/15/17 19:41 Creatine Kinase > 45174 Units/L (30-223) H 08/16/17 08:00 Troponin I 6.82 ng/mL (< 0.04) H* 08/16/17 08:00 Serum Total Protein 8.4 g/dL (6.4-8.9) 08/15/17 19:41 Albumin 2.6 g/dL (3.5-5.7) L 08/17/17 04:05 Globulin 3.3 g/dL (2.4-3.5) 08/15/17 19:41 Albumin/Globulin Ratio 1.5 (1.1-2.2) 08/15/17 19:41 Ur Specimen Adequacy 08/15/17 22:14 Urine Color Red (Yellow) A 08/15/17 22:14 Urine Clarity Cloudy (Clear) A 08/15/17 22:14 Urine pH 6.0 pH Units (5.0-8.0) 08/15/17 22:14 Ur Specific Mcleod 1.024 (1.010-1.025) 08/15/17 22:14 Urine Protein 100 mg/dL (Neg-Trace) H 08/15/17 22:14 Urine Glucose (UA) Normal mg/dL (Normal) 08/15/17 22:14 Urine Ketones Negative mg/dL (Negative) 08/15/17 22:14 Urine Blood Large (Negative) H 08/15/17 22:14 Urine Nitrite Negative (Negative) 08/15/17 22:14 Urine Bilirubin Negative (Negative) 08/15/17 22:14 Urine Urobilinogen Normal mg/dL (Normal) 08/15/17 22:14 Ur Leukocyte Esterase Small (Negative) H 08/15/17 22:14 Urine Microscopic RBC TNTC per hpf (0-3) H 08/15/17 22:14 Urine Microscopic WBC 0-3 per hpf (0-3) 08/15/17 22:14 Urine Bacteria Few per hpf (None-Few) 08/15/17 22:14 Vancomycin Trough 24.7 mcg/mL (10-20) H* 08/16/17 18:50 Salicylates < 5.0 mg/dL (15.0-30.0) L 08/15/17 19:41 Urine Opiates Screen Negative ng/mL (Pftpfu=302) 08/15/17 22:14 Acetaminophen < 1.0 mcg/mL (10-30) L 08/15/17 19:41 Ur Barbiturates Screen Negative ng/mL (Ccxckt=156) 08/15/17 22:14 Ur Phencyclidine Scrn Negative ng/mL (Cutoff=25) 08/15/17 22:14 Ur Amphetamines Screen Positive ng/mL (Wzppvf=4494) H 08/15/17 22:14 U Benzodiazepines Scrn Positive ng/mL (Iizudo=461) H 08/15/17 22:14 Urine Cocaine Screen Negative ng/mL (Cutoff= 300) 08/15/17 22:14 U Marijuana (THC) Screen Positive ng/mL (Cutoff = 50) H 08/15/17 22:14 Ethyl Alcohol < 10 mg/dL (0-10) 08/15/17 19:41 Hep Bs Antigen Nonreactive (Nonreactive) 08/16/17 11:07 Hep Bs Antibody 8.98 mIU/mL 08/16/17 11:[address] 08/15/17 19:47 IMPRESSION: Negative CT brain with no acute intracranial abnormality. D/ / Marcus Dawn MD / Marcus Dawn MD Interpreting Provider: Marcus Dawn MD X-Ray 08/15/17 19:58 IMPRESSION: 1. Endotracheal tube tip is in the expected location, superimposed over the mid trachea. 2. Nasogastric tube tip is in the expected location, superimposed over the gastric antrum. However, the side port is at the level the gastroesophageal junction. For more optimal placement, nasogastric tube should be advanced approximately 3-4 cm to ensure that the side port is inferior to the GE junction. D/ / Elder Sierra MD / Elder Sierra MD Interpreting Provider: Elder Sierra MD Echocardiogram 08/15/17 23:47 Impressions: LVEF 35-40%. Global LV systolic dysfunction. Mild left ventricular diastolic dysfunction. Normal right ventricular structure and function. There is a very small, mobile echodensity attached to the anterior tricuspid leaflet that is not well characterized. Recommend considering CHRISTY for improved image quality if clinically appropriate. Mild tricuspid regurgitation. No pulmonary hypertension. Abnormal findings communicated to ICU team. Left Ventricular Wall Motion: Rest Echo Findings The apex, apical inferior, mid inferior, basal inferior, apical anterior, mid anterior, basal anterior, apical septal, mid inferior septal, basal inferior septal, apical lateral, mid anterior lateral, basal anterior lateral, mid anterior septal, mid inferior lateral, basal anterior septal and basal inferior lateral dotson were hypokinetic. Findings: Study Quality * Technically adequate exam. ECG Findings * Sinus tachycardia. Left Ventricle * LVEF 35-40%. * Normal LV size and wall thickness. * Mild left ventricular diastolic dysfunction. Right Ventricle * Normal right ventricular structure and function. Left Atrium * Normal left atrial size. Right Atrium * Normal right atrial size. Aortic Valve * No aortic regurgitation. * Trileaflet aortic valve. * No aortic stenosis. Mitral Valve * Normal mitral valve structure. * No mitral regurgitation. * No mitral stenosis. Tricuspid Valve * Mild tricuspid regurgitation. * Tricuspid valve demonstrates a very small echodensity attached to the anterior leaflet which is not well characterized. * Estimated RA pressure is 3 mmHg. * Estimated RVSP is 32 mmHg. * No pulmonary hypertension. Pulmonic Valve * Pulmonic valve is not well visualized. * No pulmonic stenosis. * Trace pulmonic regurgitation. Pulmonary Artery * Pulmonary artery not well visualized. Interatrial Septum * No evidence of PFO by color Doppler. Aorta * Normally sized aortic root. Pericardium * There is no pericardial effusion present. Retroperitoneum Ultrasound 08/16/17 10:00 IMPRESSION: 1. Echogenic kidneys, compatible with chronic medical renal disease. 2. No hydronephrosis. 3. Nonvisualization of the bladder. D/ / 08/16/2017 11:15:36 Javier Guillen MD / mj Interpreting Provider: Javier Guillen MD Chest X-Ray 08/16/17 13:49 IMPRESSION: 1. New right internal jugular dialysis catheter tip in the lower SVC. No pneumothorax. 2. Otherwise, stable exam. D/ / Clarke Bansal / Clarke Bansal Interpreting Provider: Clarke Bansal Anesthesia Exam Vital Signs/O2 Sat/Glucose, Most Current Temp Pulse Resp BP Pulse Ox 08/17/17 09:00 130 17 96/77 100 08/17/17 08:28 19 93/71 100 08/17/17 08:00 130 16 93/71 100 08/17/17 07:25 97.7 F 08/17/17 06:00 129 12 100/71 100 - HEENT Pupil (Motor): Pupils equal, EOMI Mallampati: Intubated Teeth: Normal, Poor dentition Oral Opening: Greater than 3 - MOTOR COACH CHAUFFEUR LOC: 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 - Cardiac Rhythm: Regular Murmur: None - Pulmonary Breath Sounds: bilateral Clear Respiratory Effort: Symmetrical Anesthesia Assess/Plan ASA Score: 3, E Modified Arron Scale for Level of Consciousness: Cooperative, oriented, and tranquil Anesthetic Plan: General Monitoring Plan: Standard Monitors Recovery Plan: PACU Anes Supervising Prov Stmt: Pt seen/evaluated, R&B Discussed w/ NOK [Mother), questions answered and consent obtained. Rocael Zaidi MD
[2017-08-17] MEDS ORDERED: Lidocaine -MPF 2% 2 ML VIAL ONE (09:47)
[2017-08-17] MEDS ORDERED: *HR* FentaNYL (PF) 100 MCG/2 ML VIAL ONE (09:47)
[2017-08-17] MEDS ORDERED: *HR* Propofol 200 MG/20 ML VIAL IVP ONE (09:47)
[2017-08-17] MEDS ORDERED: *HR* Midazolam HCl 5 MG/5 ML VIAL IVP ONE (09:47)
--- NOTE | 2017-08-17 10:08 | Electrocardiograph Report ---
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
--- NOTE | 2017-08-17 10:11 | Nephrology Progress Note ---
Date of Encounter: 08/17/17 Time of Encounter: 09:55 - Assessment and Plan (1) HALIMA (acute kidney injury) Current Visit: Yes Status: Acute HALIMA/rabdo/hyperkalemia in setting of drug overdose, hypotension. Will dialyze after emergent fasciotomy. Obtain stat potassium. Recommend consulting ID regarding possible infective endocarditis and least nephrotoxic Atb coverage. Maintain araujo catheter, I&O. Will continue to monitor. Do not replace Calcium unless symptomatic arrythmia, tetany. Calcium sequestered in muscle and will release as muscle heals. Subjective Interval history: Intubated, sedated. To OR for RLE emergent fasciotomy. HD yesterday for K 6.9. Mother and sister at bedside, updated from renal standpoint. Objective - Vital Signs Vital signs: Vital Signs Temp Pulse Pulse Pulse Pulse Pulse Pulse 08/17/17 09:55 08/17/17 09:00 130 08/17/17 08:28 08/17/17 08:00 130 08/17/17 07:25 97.7 F 08/17/17 06:00 129 08/17/17 05:00 129 08/17/17 04:00 125 08/17/17 03:47 123 08/17/17 03:26 97.8 F 08/17/17 03:25 08/17/17 03:00 124 08/17/17 02:00 124 08/17/17 01:13 08/17/17 01:00 120 08/17/17 00:45 122 08/16/17 23:25 08/16/17 23:15 98.4 F 08/16/17 22:00 98.8 F 122 08/16/17 21:45 08/16/17 21:32 08/16/17 21:30 08/16/17 21:15 08/16/17 21:00 122 08/16/17 20:45 08/16/17 20:30 133 08/16/17 20:15 08/16/17 20:00 134 08/16/17 19:45 08/16/17 19:30 08/16/17 19:15 102.4 F H 08/16/17 19:00 131 08/16/17 18:13 08/16/17 18:00 128 08/16/17 17:00 126 08/16/17 16:00 101.2 F H 124 08/16/17 15:45 08/16/17 15:21 123 118 122 118 123 08/16/17 15:00 125 08/16/17 14:42 08/16/17 14:00 122 08/16/17 13:00 117 08/16/17 12:03 98.5 F 08/16/17 12:00 113 08/16/17 11:33 08/16/17 11:00 115 08/16/17 10:32 Resp Resp Resp Resp Resp Resp BP 08/17/17 09:55 20 90/64 08/17/17 09:00 17 96/77 08/17/17 08:28 19 93/71 08/17/17 08:00 16 93/71 08/17/17 07:25 08/17/17 06:00 12 100/71 08/17/17 05:00 12 99/63 08/17/17 04:00 14 102/66 08/17/17 03:47 08/17/17 03:26 08/17/17 03:25 18 08/17/17 03:00 17 101/69 08/17/17 02:00 18 105/68 08/17/17 01:13 20 08/17/17 01:00 17 85/57 08/17/17 00:45 22 98/68 08/16/17 23:25 27 08/16/17 23:15 08/16/17 22:00 25 123/84 08/16/17 21:45 124/91 08/16/17 21:32 27 08/16/17 21:30 119/91 08/16/17 21:15 103/83 08/16/17 21:00 25 116/72 08/16/17 20:45 101/62 08/16/17 20:30 100/70 08/16/17 20:15 89/62 08/16/17 20:00 31 91/47 08/16/17 19:45 99/68 08/16/17 19:30 101/58 08/16/17 19:15 28 99/69 08/16/17 19:00 32 96/62 08/16/17 18:13 34 08/16/17 18:00 32 102/45 08/16/17 17:00 32 99/38 08/16/17 16:00 36 94/66 08/16/17 15:45 31 08/16/17 15:21 35 27 31 29 33 08/16/17 15:00 40 99/62 08/16/17 14:42 37 08/16/17 14:00 39 104/77 08/16/17 13:00 40 123/71 08/16/17 12:03 08/16/17 12:00 08/16/17 11:33 35 08/16/17 11:00 38 81/59 08/16/17 10:32 36 BP BP BP BP BP Pulse Ox 08/17/17 09:55 100 08/17/17 09:00 100 08/17/17 08:28 100 08/17/17 08:00 100 08/17/17 07:25 08/17/17 06:00 100 08/17/17 05:00 100 08/17/17 04:00 100 08/17/17 03:47 08/17/17 03:26 08/17/17 03:25 100 08/17/17 03:00 100 08/17/17 02:00 99 08/17/17 01:13 93 08/17/17 01:00 97 08/17/17 00:45 98 08/16/17 23:25 98 08/16/17 23:15 08/16/17 22:00 99 08/16/17 21:45 08/16/17 21:32 99 08/16/17 21:30 08/16/17 21:15 08/16/17 21:00 97 08/16/17 20:45 08/16/17 20:30 08/16/17 20:15 08/16/17 20:00 96 08/16/17 19:45 08/16/17 19:30 08/16/17 19:15 08/16/17 19:00 96 08/16/17 18:13 95 08/16/17 18:00 95 08/16/17 17:00 95 08/16/17 16:00 94 08/16/17 15:45 94 08/16/17 15:21 104/62 110/61 99/62 83/67 91/51 08/16/17 15:00 94 08/16/17 14:42 92 08/16/17 14:00 92 08/16/17 13:00 90 08/16/17 12:03 08/16/17 12:00 08/16/17 11:33 93 08/16/17 11:00 90 08/16/17 10:32 90 Intake and Output 08/16/17 08/17/17 08/17/17 23:59 07:59 15:59 Intake Total 2344 / 2344 1330.5 / 1330.5 Output Total 650 / 650 0 / 0 Balance 1694 / 1694 1330.5 / 1330.5 Intake: IV Fluids 1744 / 1744 1330.5 / 1330.5 FentaNYL (PF) 1,000 MCG In 0.9 83 / 83 % Sodium Chloride 80 ML @ 50 MCG/HR 5 mls/hr IVC CONT [facility] Rx #:[id number] Versed 50 MG In 0.9 % Sodium 60.5 / 60.5 Chloride 90 ML @ 2 MG/HR 4 mls/ hr IVC CONT [facility] Rx#:[id number] Phenylephrine 20 MG In Dextrose 391 / 391 5% 500 ML @ 40 MCG/MIN 60.24 mls/hr IVC CONT [facility] Rx#: [id number] Sodium Bicarbonate 150 MEQ In 1150 / 1150 1150 / 1150 Dextrose 5% 1,000 ML @ 150 mls/ hr IVC .[id number] [facility] Rx#: [id number] Calcium Gluconate 2,000 MG In 0 120 / 120 120 / 120 .9 % Sodium Chloride 100 ML @ 220 mls/hr IVPB ONCE PRN Rx#: [id number] Oral 0 / 0 Intake, Rinseback and Flushes 600 / 600 Output: Urine 0 / 0 Total Dialysis (HD) Output 600 / 600 Rectal Tube 0 / 0 Catheter 50 / 50 0 / 0 Other: Stool Size Large Moderate Stool Consistency loose loose Stool Color Brown Brown Weight 91.4 kg Blood Glucose* 113 119 Hemodialysis Net Fluid Removed 0 (mL) Patient Weight 08/17/17 23:59 Weight 91.4 kg - General Appearance General appearance: Present: well-developed, well-nourished, appears started age EENT: Present: mucous membranes moist Neck: Present: no JVD Additional Comments: harsh breath sounds Cardiology: Present: regular rate, regular rhythm Additional Comments: RLE swollen Dialysis Vascular Access: Venous Catheter Gastrointestinal: Present: absent bowel sounds Integumentary: Present: warm and dry - Lab 08/17/17 04:00 08/17/17 04:05 Most recent lab results ABG pH 7.38 pH Units (7.32-7.45) 08/17/17 06:20 ABG pCO2 44 mmHg (35-45) 08/17/17 06:20 ABG pO2 105 mmHg (85-104) H 08/17/17 06:20 ABG HCO3 26 mEq/L (21-27) 08/17/17 06:20 ABG O2 Saturation 98 % (95-98) 08/17/17 06:20 Calcium 5.9 mg/dL (8.6-10.3) L* 08/17/17 04:05 Phosphorus 9.1 mg/dL (2.7-4.5) H 08/17/17 04:05 Magnesium 3.1 mg/dL (1.6-2.6) H 08/16/17 03:25 - VTE Documentation of Mechanical Device: Intermittent pneumatic compression device Consult Discharge Plan - Plan Referrals: NONE,PCP [Primary Care Provider] -
[2017-08-17] MEDS ORDERED: Ondansetron 4 MG/2 ML VIAL ONE (10:50)
[2017-08-17] MEDS ORDERED: Dexamethasone 4 MG/ML VIAL ONE (10:50)
[2017-08-17] MEDS ORDERED: ceFAZolin 2,000 MG in Water for inj. (sterile) 20 ML IVP ONE (10:54)
[2017-08-17] MEDS ORDERED: *HR* Phenylephrine 10 MG/ML VIAL ONE (11:11)
[2017-08-17] MEDS ORDERED: CeFAZolin Premix DUPLEX 2,000 MG/50 ML BAG IVPB ONE (11:15)
[2017-08-17] MEDS ORDERED: 0.9 % Sodium Chloride 2,000 ML ONE (12:53)
[2017-08-17] MEDS: FentaNYL (PF) 1,000 MCG in 0.9 % Sodium Chloride 80 ML IVC SCH ×2 (13:00→23:10)
[2017-08-17] MEDS ORDERED: 0.9 % Sodium Chloride 250 ML IVC PRN (13:57)
[2017-08-17] MEDS ORDERED: *HR* Heparin 10,000 UNIT/10 ML VIAL IV PRN (13:57)
--- NOTE | 2017-08-17 14:36 | Orthopedic Operative Note ---
Date of procedure: 08/17/17
--- NOTE | 2017-08-17 14:41 | Orthopedic Operative Note ---
Date of procedure: 08/17/17 Procedure: OPERATIVE REPORT DATE OF PROCEDURE: 08/17/2017 SURGEON: Darwin Joy MD COUNTY JUDGE(S): There are no assistants PREOPERATIVE DIAGNOSIS: Right leg compartment syndrome POSTOPERATIVE DIAGNOSIS: Right leg compartment syndrome PROCEDURE: Right leg 4 compartment fasciotomy ANESTHESIA: General anesthesia PREOPERATIVE ANTIBIOTICS: 2 g of Ancef ESTIMATED BLOOD LOSS: 5 milliliters TOURNIQUET TIME: 9 minutes at 300 mmHg PREOPERATIVE NOTE AND INDICATIONS: This patient is a 27-year-old male who is admitted to the ICU for an apparent overdose and toxic ingestion. The primary team noted a swollen leg with tightness this morning and is concerned about compartment syndrome. I was consulted and evaluated the patient emergently and confirm the diagnosis with the compartment pressure monitoring system. He was indicated for fasciotomy to relieve the compartment pressure. The surgical plan was discussed with the mother. The risks, benefits, alternatives, and potential complications of this procedure were discussed with the patient including injury to veins, arteries, nerves, tendons, ligaments, and bone. Also discussed were the risks of infection, bleeding, pain, blood clots, the possible need for a blood transfusion, the possible need for further procedures, heart attack, stroke, and . Additional risks include the need for further debridements, the need for skin grafting, and the need for debridement of muscle and even amputation. All of this was explained in simple terms, and the mother verbalized understanding and wished to proceed. Consent was given to proceed with surgery. PROCEDURE: The patient was seen in the preoperative holding area where the identify and the consent were confirmed. The right leg was marked. Final questions were answered. The patient was brought back to the operating room and placed supine on the operating room table. A huddle was performed with the patient and all vital surgical team members confirming patient identity, the correct procedure, and the correct operative site. Gen. anesthesia was administered. The right lower extremity was prepped and draped in the usual sterile fashion. A surgical time out was performed immediately preceding the incision with all personnel in the operating room to confirm patient identity, the correct operative site and extremity, correct radiographic studies, availability of appropriate surgical equipment, and agreement on the planned procedure. The limb was elevated and the tourniquet was inflated. A lateral incision was made about 15 cm in length between the tibial border and the fibula. Dissection proceeded through the subcutaneous tissue down to the fascia. The lateral intermuscular septum was identified. A small terra in the fascia was made and using a curved scissor the fasciotomy was performed proximally and distally in the anterior compartment causing the musculature to billow out. A similar procedure was done in the lateral compartment causing the musculature to billow out. The musculature was a bit pale and noncontractile with Bovie. It was not frankly necrotic. Attention was directed medially and a similar 15 cm incision was made 2 cm posterior to the tibial border. Dissection proceeded to the fascia reflecting the saphenous nerve and vein anteriorly. A fasciotomy was performed of the superficial posterior compartment causing the musculature to billow out. The muscle was of healthy color and nicely contractile with the Bovie. The soleus bridge was taken down off the tibia and the deep posterior compartment was opened and the muscle was a bit dusky and noncontractile with Bovie. The tourniquet was deflated. The muscles did pink up nicely. Contractility did not change. The foot pinked up nicely and there was a dopplerable posterior tibial pulse. I could not Doppler a dorsalis pedis pulse. The skin could not be closed tension-free and therefore both wounds were left open and wound Vac dressings applied to both with 125 mm of negative pressure. A soft sterile dressing was applied. The instrument, sponge, and needle counts were correct after wound closure. POST OPERATIVE PLAN: Weight Bearing: Nonweightbearing to the right lower extremity. DVT Prophylaxis: Per the hospitalist Activity: Avoid aggressive activities with right lower extremity. Elevate the right lower extremity. Wound Care: We will reevaluate the wound in 2 days in the operating room and possible wound closure. Pain Control: Per the hospitalist Was there an personal injury legal assistant present: No Estimated blood loss (cc): 5
[2017-08-17] MEDS: Phenylephrine 20 MG in D5% in Water 500 ML IVC SCH (17:10)
--- NOTE | 2017-08-17 19:08 | Anesthesia Evaluation Post Op ---
Date of Encounter: 08/17/17 Time of Encounter: 11:45 - Vital Signs Vital Signs: Vital Signs Temp Pulse Resp BP Pulse Ox 08/17/17 18:00 144 21 104/85 98 08/17/17 17:45 98.4 F 12 93/72 08/17/17 17:20 92/67 08/17/17 17:15 18 64/36 96 08/17/17 17:05 89/54 08/17/17 17:00 138 21 79/45 100 08/17/17 16:50 100/68 08/17/17 16:35 96/66 08/17/17 16:20 98/58 08/17/17 16:05 95/69 08/17/17 16:00 138 21 95/69 100 08/17/17 15:50 98/64 08/17/17 15:46 98.5 F 08/17/17 15:35 92/55 08/17/17 15:33 19 91/65 98 08/17/17 15:20 82/63 08/17/17 15:05 90/48 08/17/17 15:00 138 23 78/58 99 08/17/17 14:50 97/54 08/17/17 14:35 111/55 08/17/17 14:20 98.5 F 14 104/57 08/17/17 14:00 135 19 91/65 98 08/17/17 13:57 24 97/64 98 08/17/17 13:00 98.1 F 130 20 97/61 98 08/17/17 12:00 126 18 87/58 100 08/17/17 11:30 17 91/61 100 08/17/17 11:00 121 18 81/52 99 08/17/17 09:55 20 90/64 100 08/17/17 09:00 130 17 96/77 100 08/17/17 08:28 19 93/71 100 08/17/17 08:00 130 16 93/71 100 08/17/17 07:25 97.7 F 08/17/17 07:00 133 08/17/17 06:00 129 12 100/71 100 08/17/17 05:00 129 12 99/63 100 08/17/17 04:00 125 14 102/66 100 08/17/17 03:47 123 08/17/17 03:26 97.8 F 08/17/17 03:25 18 100 08/17/17 03:00 124 17 101/69 100 08/17/17 02:00 124 18 105/68 99 08/17/17 01:13 20 93 08/17/17 01:00 120 17 85/57 97 08/17/17 00:45 122 22 98/68 98 08/16/17 23:25 27 98 08/16/17 23:15 98.4 F 08/16/17 22:00 98.8 F 122 25 123/84 99 08/16/17 21:45 124/91 08/16/17 21:32 27 99 08/16/17 21:30 119/91 08/16/17 21:15 103/83 08/16/17 21:00 122 25 116/72 97 08/16/17 20:45 101/62 08/16/17 20:30 133 100/70 08/16/17 20:15 89/62 08/16/17 20:00 134 31 91/47 96 08/16/17 19:45 99/68 08/16/17 19:30 101/58 08/16/17 19:15 102.4 F H 28 99/69 Intake and Output 08/17/17 08/17/17 08/17/17 07:59 15:59 23:59 Intake Total 1330.5 / 1330.5 170 / 170 178.5 / 178.5 Output Total 0 / 0 130 / 130 0 / 0 Balance 1330.5 / 1330.5 40 / 40 178.5 / 178.5 Intake: IV Fluids 1330.5 / 1330.5 170 / 170 178.5 / 178.5 FentaNYL (PF) 1,000 MCG In 0.9 100 / 100 28 / 28 % Sodium Chloride 80 ML @ 50 MCG/HR 5 mls/hr IVC CONT [facility] Rx #:[id number] Versed 50 MG In 0.9 % Sodium 60.5 / 60.5 39.5 / 39.5 Chloride 90 ML @ 2 MG/HR 4 mls/ hr IVC CONT YAEL Rx#:[id number] Phenylephrine 20 MG In Dextrose 0 / 0 111 / 111 5% 500 ML @ 40 MCG/MIN 60.24 mls/hr IVC CONT [facility]EL Rx#: [id number] Sodium Bicarbonate 150 MEQ In 1150 / 1150 Dextrose 5% 1,000 ML @ 150 mls/ hr IVC .[id number] YAEL Rx#: [id number] Ancef 2,000 MG In Water for inj 20 / 20 . (sterile) 20 ML @ 200 mls/hr IVP ONCE ONE Rx#:[id number] Calcium Gluconate 2,000 MG In 0 120 / 120 .9 % Sodium Chloride 100 ML @ 220 mls/hr IVPB ONCE PRN Rx#: [id number] Ancef Premix DUPLEX 2,000 mg In 50 / 50 50 ml @ 100 mls/hr IVPB ONCE ONE Rx#:[id number] Oral 0 / 0 Intake, Rinseback and Flushes 0 / 0 Output: Urine 0 / 0 Total Dialysis (HD) Output 0 / 0 Estimated Blood Loss 5 / 5 Rectal Tube 0 / 0 100 / 100 Catheter 0 / 0 25 / 25 Other: Stool Size Moderate Stool Consistency loose Stool Color Brown Weight 91.4 kg Blood Glucose* 119 103 Hemodialysis Net Fluid Removed 0 0 (mL) Patient Weight 08/17/17 23:59 Weight 91.4 kg - Lungs Lungs: Clear Ascult./Percussion - Airway Airway: Intubated - Cardiovascular Baseline Rhythm - Mental Status Mental Status: Sedated - Pain Pain Scale used: 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 - Nausea Vomiting Nausea Vomiting: Not Present - Hydration Hydration: NPO - Discharge PostOp Status: Transfer Patient to floor Anes Supervising Prov Stmt: Pt seen/evaluated, VSS in ICU7
--- NOTE | 2017-08-17 19:21 | Anesthesia Evaluation Post Op ---
Date of Encounter: 08/17/17 - Vital Signs Vital Signs: Vital Signs Intake and Output Patient Weight 08/17/17 23:59 Weight 91.4 kg - Lungs Lungs: Clear Ascult./Percussion - Airway Airway: Intubated - Cardiovascular Regular Rate, Baseline Rhythm - Mental Status Mental Status: Sedated - Pain Pain Scale used: 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 - Nausea Vomiting Nausea Vomiting: Not Present - Hydration Hydration: NPO, Baird catheter - Discharge PostOp Status: Transfer Patient to floor
[2017-08-17 19:42] LABS: Albumin 2.6 g/dL (3.5-5.7); Calcium 6.3 mg/dL (8.6-10.3); Phosphorous 8.2 mg/dL (2.7-4.5); Potassium 4.1 mEq/L (3.5-5.1)
[2017-08-17 19:54] LABS: BUN/Creatinine Ratio 6 (6-26); Blood Urea Nitrogen 26 mg/dL (6-20); Calcium 6.4 mg/dL (8.6-10.3); Carbon Dioxide 32 mEq/L (23-29); Chloride 96 mEq/L (98-107); Glucose 131 mg/dL (70-105); Osmolality,Calculated 285 (280-300); Potassium 4.1 mEq/L (3.5-5.1); Sodium 134 mEq/L (136-145); eGFR For African Americans 21 (> 60); eGFR For Non-African Americans 17 (> 60)
[2017-08-17 20:43] LABS: Creatine Kinase > 20000 Units/L (30-223)
[2017-08-18 03:19] LABS: Nucleated Red Blood Cells 0.2 /100 WBC (0); Red Cell Distribution Width 13.5 % (11.5-14.5)
[2017-08-18 03:20] LABS: Hematocrit 39.6 % (37.5-50.1); Hemoglobin 13.3 g/dL (12.9-16.9); Mean Corpuscular HGB Conc 33.6 g/dL (31.6-35.5); Mean Corpuscular Volume 86.3 fL (83.0-100.0); Mean Platelet Volume 13.1 fL (9.4-12.4); Red Blood Count 4.59 M/mcL (4.19-5.50)
[2017-08-18] MEDS: Ipratropium/Albuterol Neb 3 ML IH SCH ×5 (03:54→21:35)
[2017-08-18 04:04] LABS: Platelet Count 65 K/mcL (140-400)
[2017-08-18 04:06] LABS: Lymphocytes # 1.7 K/mcL (0.6-4.6); Monocytes # 1.7 K/mcL (0.0-1.3); Neutrophils # 25.3 K/mcL (1.6-8.9); Platelet Estimate Decreased (Normal)
[2017-08-18 04:13] LABS: Calcium 5.9 mg/dL (8.6-10.3); Potassium 5.3 mEq/L (3.5-5.1)
[2017-08-18] MEDS: Calcium Gluconate 2,000 MG in 0.9 % Sodium Chloride 100 ML IVPB PRN ×2 (04:49→18:40)
[2017-08-18 05:59] LABS: ABG Base Excess 2 mEq/L (-2 to 3); ABG HCO3 28 mEq/L (21-27); ABG Oxygen Saturation 97 % (95-98); ABG PCO2 49 mmHg (35-45); ABG PH 7.37 pH Units (7.32-7.45); ABG PO2 91 mmHg (85-104); ABG TCO2 30 mEq/L (20-26); Blood Gas Modality ASSIST CONTROL; Blood Gas PEEP 5 cm H2O; Blood Gas Respiration Rate 12; Blood Gas VT 500 cc
[2017-08-18] MEDS: FentaNYL (PF) 1,000 MCG in 0.9 % Sodium Chloride 80 ML IVC SCH ×2 (06:05→16:30)
[2017-08-18] MEDS: Lacri-Lube 3.5 GM TUBE BOTH EYES SCH ×6 (06:06→23:55)
[2017-08-18] MEDS: *HR* Heparin 5,000 UNIT/ML VIAL SQ SCH ×3 (06:07→23:17)
--- NOTE | 2017-08-18 07:03 | Pulmonology Progress Note ---
Date of Encounter: 08/18/17 Time of Encounter: 07:03 Assessment and Plan (1) Shock Current Visit: Yes Status: Acute Likely etiology is toxidrome versus infectious Patient has been fluid responsive since admission Blood pressure was 90s over 70s this morning Heart rate up to 130s as morning We will continue to monitor closely and correct electrolyte abnormalities today Patient is high-risk as he will proceed to the operating room for emergent fasciotomy for his right lower extremity (2) Compartment syndrome of right lower extremity Current Visit: Yes Status: Acute Patient was able to follow commands this morning kept moving his right lower extremity On examination his right lower extremity was extremely taut with evident elevation in pressure on palpation. No visible wincing during exam With the surgery was consulted to rule out compartment syndrome [place] needle was inserted into 3 compartments resulting in elevated pressures in all 3 and will proceed to the operating room today for emergent fasciotomy Underwent successful fasciotomy of the right lower extremity this morning by ortho Wound VAC in place Qualifiers: Encounter type: initial encounter Qualified Code(s): T79.A21A - Traumatic compartment syndrome of right lower extremity, initial encounter (3) Lactic acidosis Current Visit: Yes Status: Acute History trended down from 9.6-2.0 yesterday We will continue to monitor (4) Substance abuse Current Visit: Yes Status: Acute There is apparent visualization of ingestion from another inmate Toxicology was positive for amphetamines, benzodiazepines and THC (5) Tachycardia Current Visit: Yes Status: Acute Likely due to this toxidrome Heart rate is increased to 130s this morning and will recheck with the 12-lead (6) Elevated troponin Current Visit: Yes Status: Acute Troponin trended from 0.112 4.65-6.[address] elevation or depression noted on EKG Echocardiogram demonstrates EF of 35% with global systolic dysfunction Cardiology consulted and agreed that this is likely due to rhabdomyolysis, shock and HALIMA due to the unlikely nature of ischemic cardiomyopathy given his age (7) HALIMA (acute kidney injury) Current Visit: Yes Status: Acute Creatinine down to 4.57 Possible etiology from rhabdo as well as possible side effect of acyclovir for suspected meningitis on admission 2 days ago Plan for dialysis this afternoon. 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 Patient is able to open eyes and follows simple commands this morning He continues to move his right lower extremity and appears uncomfortable No overnight events per nursing Objective PUL Vital signs: Last Vital Signs Temp 100.8 F H 08/18/17 03:42 Pulse 140 08/18/17 06:00 Resp 15 08/18/17 06:00 BP 118/63 08/18/17 06:00 Pulse Ox 99 08/18/17 06:00 Ventilator Settings Ventilator Settings: Ventilator Settings, Last 8 Hours Ventilator Mode A/C Ventilator Mode A/C Ventilator Mode A/C Ventilator Mode A/C Ventilator Mode A/C Ventilator Mode A/C Ventilator Mode A/C Ventilator Mode A/C Ventilator Mode A/C Ventilator Mode A/C Ventilator Mode A/C Ventilator Tidal Volume 500 Setting Ventilator Tidal Volume 500 Setting Ventilator Tidal Volume 500 Setting Ventilator Tidal Volume 500 Setting Ventilator Tidal Volume 500 Setting Ventilator Tidal Volume 500 Setting Ventilator Tidal Volume 500 Setting Ventilator Tidal Volume 500 Setting Ventilator Tidal Volume 500 Setting Ventilator Tidal Volume 500 Setting Ventilator Tidal Volume 500 Setting Ventilator Respiratory Rate 12 Setting Ventilator Respiratory Rate 12 Setting Ventilator Respiratory Rate 12 Setting Ventilator Respiratory Rate 12 Setting Ventilator Respiratory Rate 12 Setting Ventilator Respiratory Rate 12 Setting Ventilator Respiratory Rate 12 Setting Ventilator Respiratory Rate 12 Setting Ventilator Respiratory Rate 12 Setting Ventilator Respiratory Rate 12 Setting Ventilator Respiratory Rate 12 Setting Actual Respiratory Rate 15 Actual Respiratory Rate 17 Actual Respiratory Rate 17 Actual Respiratory Rate 18 Actual Respiratory Rate 17 Actual Respiratory Rate 19 Actual Respiratory Rate 14 Actual Respiratory Rate 16 Actual Respiratory Rate 19 Actual Respiratory Rate 17 Positive End Expiratory 5 Pressure Positive End Expiratory 5 Pressure Positive End Expiratory 5 Pressure Positive End Expiratory 5 Pressure Positive End Expiratory 5 Pressure Positive End Expiratory 5 Pressure Positive End Expiratory 5 Pressure Positive End Expiratory 5 Pressure Positive End Expiratory 5 Pressure Positive End Expiratory 5 Pressure Positive End Expiratory 5 Pressure Peak Inspiratory Airway 21 Pressure Peak Inspiratory Airway 26 Pressure Peak Inspiratory Airway 26 Pressure Peak Inspiratory Airway 25 Pressure Peak Inspiratory Airway 20 Pressure Peak Inspiratory Airway 27 Pressure Peak Inspiratory Airway 26 Pressure Peak Inspiratory Airway 26 Pressure Peak Inspiratory Airway 28 Pressure Peak Inspiratory Airway 30 Pressure Results - Laboratory Findings CBC and BMP: 08/18/17 02:50 08/18/17 02:50 ABG ABG pH 7.37 pH Units (7.32-7.45) 08/18/17 05:56 ABG pCO2 49 mmHg (35-45) H 08/18/17 05:56 ABG pO2 91 mmHg (85-104) 08/18/17 05:56 ABG O2 Saturation 97 % (95-98) 08/18/17 05:56 PT/INR, D-dimer PT 19.8 Seconds (9.4-12.1) H 08/16/17 11:07 Abnormal lab findings: Abnormal lab results WBC 28.7 K/mcL (4.3-11.1) H 08/18/17 02:50 Plt Count 65 K/mcL (140-400) L 08/18/17 02:50 MPV 13.1 fL (9.4-12.4) H 08/18/17 02:50 Band Neutrophils % 20.0 % (0-4) H 08/18/17 02:50 Neutrophils # 25.3 K/mcL (1.6-8.9) H 08/18/17 02:50 Monocytes # 1.7 K/mcL (0.0-1.3) H 08/18/17 02:50 Nucleated RBCs/100 WBC 0.2 /100 WBC (0) H 08/18/17 02:50 Reactive Lymphocytes Present (Not Present) A 08/16/17 03:25 Smudge Cells Present (Not Present) A 08/16/17 03:25 Toxic Granulation Present (Not Present) A 08/16/17 03:25 Platelet Estimate Decreased (Normal) L 08/18/17 02:50 Immature Plt Fraction 15.4 % (1.1-6.1) H 08/17/17 04:00 Anisocytosis 1+ (Not Present) A 08/16/17 03:25 PT 19.8 Seconds (9.4-12.1) H 08/16/17 11:07 ABG pCO2 49 mmHg (35-45) H 08/18/17 05:56 ABG HCO3 28 mEq/L (21-27) H 08/18/17 05:56 ABG Total CO2 30 mEq/L (20-26) H 08/18/17 05:56 VBG pH 7.22 pH Units (7.32-7.42) L 08/16/17 17:18 Sodium 135 mEq/L (136-145) L 08/18/17 02:50 Potassium 5.3 mEq/L (3.5-5.1) H D 08/18/17 02:50 Chloride 97 mEq/L (98-107) L 08/18/17 02:50 Carbon Dioxide 33 mEq/L (23-29) H 08/18/17 02:50 BUN 33 mg/dL (6-20) H 08/18/17 02:50 Creatinine 5.63 mg/dL (0.70-1.30) H 08/18/17 02:50 Est GFR ( Amer) 15 (> 60) L 08/18/17 02:50 Est GFR (Non-Af Amer) 12 (> 60) L 08/18/17 02:50 Glucose 114 mg/dL (70-105) H 08/18/17 02:50 POC Glucose 103 (58-89) H 08/17/17 15:25 Calcium 5.9 mg/dL (8.6-10.3) L* 08/18/17 02:50 Venous Ioniz Calcium 0.68 mmol/L (1.15-1.35) L 08/16/17 17:18 Phosphorus 8.2 mg/dL (2.7-4.5) H 08/17/17 18:30 Magnesium 3.1 mg/dL (1.6-2.6) H 08/16/17 03:25 Creatine Kinase > 29008 Units/L (30-223) H 08/17/17 18:30 Troponin I 6.82 ng/mL (< 0.04) H* 08/16/17 08:00 Albumin 2.6 g/dL (3.5-5.7) L 08/17/17 18:30 Urine Color Red (Yellow) A 08/15/17 22:14 Urine Clarity Cloudy (Clear) A 08/15/17 22:14 Urine Protein 100 mg/dL (Neg-Trace) H 08/15/17 22:14 Urine Blood Large (Negative) H 08/15/17 22:14 Ur Leukocyte Esterase Small (Negative) H 08/15/17 22:14 Urine Microscopic RBC TNTC per hpf (0-3) H 08/15/17 22:14 Vancomycin Trough 24.7 mcg/mL (10-20) H* 08/16/17 18:50 Salicylates < 5.0 mg/dL (15.0-30.0) L 08/15/17 19:41 Acetaminophen < 1.0 mcg/mL (10-30) L 08/15/17 19:41 Ur Amphetamines Screen Positive ng/mL (Nzzamt=3258) H 08/15/17 22:14 U Benzodiazepines Scrn Positive ng/mL (Vxuwnr=911) H 08/15/17 22:14 U Marijuana (THC) Screen Positive ng/mL (Cutoff = 50) H 08/15/17 22:14 - Clinical Findings Intake & Output: Intake & Output 08/17/17 08/17/17 08/18/17 15:59 23:59 07:59 Intake Total 170 / 170 670.5 / 670.5 402 / 402 Output Total 130 / 130 700 / 700 200 / 200 Balance 40 / 40 -29.5 / -29.5 202 / 202 Weight 94 kg - VTE Documentation of Mechanical Device: Intermittent pneumatic compression device Consult Discharge Plan - Plan Referrals: NONE,PCP [Primary Care Provider] -
[2017-08-18 07:07] LABS: Magnesium 1.9 mg/dL (1.6-2.6)
[2017-08-18 07:32] LABS: INR 1.6; Prothrombin Time 17.3 Seconds (9.4-12.1)
[2017-08-18] MEDS ORDERED: *HR* Rocuronium Bromide 100 MG/10 ML VIAL IVC ONE (08:16)
[2017-08-18] MEDS: Pantoprazole 40 MG VIAL IVP SCH (08:48)
[2017-08-18] MEDS: Meropenem 500 MG in Water for inj. (sterile) 20 ML 10 ML IVP SCH ×2 (08:48→19:58)
[2017-08-18] MEDS: Chlorhexidine Rinse 15 ML MOUTHWASH MM SCH ×2 (08:50→19:54)
[2017-08-18] MEDS ORDERED: cefTRIAXone 1,000 MG in Water for inj. (sterile) 20 ML 10 ML IVP SCH (09:00)
[2017-08-18] MEDS ORDERED: Ringers Solution, Lactated 1,000 ML IVC SCH (09:00)
--- NOTE | 2017-08-18 09:13 | Nephrology Progress Note ---
Date of Encounter: 08/18/17 Time of Encounter: 08:55 - Assessment and Plan (1) HALIMA (acute kidney injury) Current Visit: Yes Status: Acute HALIMA/rabdo/hyperkalemia in setting of drug overdose, hypotension. S/P emergent fasciotomy on 08/17. HD yesterday post op. K stable 5.3. Anuric. No immediate need for HD today. Recommend consulting ID regarding possible infective endocarditis and least nephrotoxic Atb coverage. Maintain araujo catheter, I&O. Will continue to monitor. Do not replace Calcium unless symptomatic arrythmia, tetany. Calcium sequestered in muscle and will release as muscle heals. Subjective Interval history: Intubated, sedated. S/P RLE emergent fasciotomy on 08/17. HD yesterday post op. K 5.3. Essentially anuric. Today CXR-clear lung castro. Objective - Vital Signs Vital signs: Vital Signs Temp Pulse Resp BP Pulse Ox 08/18/17 08:04 18 100/81 98 08/18/17 07:40 99.7 F H 08/18/17 06:00 140 15 118/63 99 08/18/17 05:00 138 17 115/74 98 08/18/17 04:00 140 15 115/77 98 08/18/17 03:57 18 98 08/18/17 03:42 100.8 F H 08/18/17 03:00 144 17 113/81 98 08/18/17 02:29 28 98 08/18/17 02:00 146 16 103/61 99 08/18/17 01:00 144 16 112/72 99 08/18/17 00:00 99.7 F H 144 14 104/93 99 08/17/17 23:18 17 99 08/17/17 23:00 144 17 98/74 99 08/17/17 22:00 146 18 104/71 99 08/17/17 21:33 18 99 08/17/17 21:00 146 18 118/67 99 08/17/17 20:00 144 19 106/68 98 08/17/17 19:59 17 98 08/17/17 19:25 98.7 F 08/17/17 19:15 146 12 101/81 98 08/17/17 18:00 144 21 104/85 98 08/17/17 17:45 98.4 F 12 93/72 01/27/18 17:20 92/67 08/17/17 17:15 18 64/36 96 08/17/17 17:05 89/54 08/17/17 17:00 138 21 79/45 100 08/17/17 16:50 100/68 08/17/17 16:35 96/66 08/17/17 16:20 98/58 08/17/17 16:05 95/69 08/17/17 16:00 138 21 95/69 100 08/17/17 15:50 98/64 08/17/17 15:46 98.5 F 08/17/17 15:35 92/55 08/17/17 15:33 19 91/65 98 08/17/17 15:20 82/63 08/17/17 15:05 90/48 08/17/17 15:00 138 23 78/58 99 08/17/17 14:50 97/54 08/17/17 14:35 111/55 08/17/17 14:20 98.5 F 14 104/57 08/17/17 14:00 135 19 91/65 98 08/17/17 13:57 24 97/64 98 08/17/17 13:00 98.1 F 130 20 97/61 98 08/17/17 12:00 126 18 87/58 100 08/17/17 11:30 17 91/61 100 08/17/17 11:00 121 18 81/52 99 08/17/17 09:55 20 90/64 100 Intake and Output 08/17/17 08/18/17 08/18/17 23:59 07:59 15:59 Intake Total 670.5 / 670.5 402 / 402 Output Total 700 / 700 200 / 200 Balance -29.5 / -29.5 202 / 202 Intake: IV Fluids 670.5 / 670.5 402 / 402 FentaNYL (PF) 1,000 MCG In 0.9 100 / 100 100 / 100 % Sodium Chloride 80 ML @ 50 MCG/HR 5 mls/hr IVC CONT [facility]EL Rx #:[id number] Versed 50 MG In 0.9 % Sodium 39.5 / 39.5 100 / 100 Chloride 90 ML @ 2 MG/HR 4 mls/ hr IVC CONT YAEL Rx#:[id number] Phenylephrine 20 MG In Dextrose 531 / 531 82 / 82 5% 500 ML @ 40 MCG/MIN 60.24 mls/hr IVC CONT YAEL Rx#: [id number] Calcium Gluconate 2,000 MG In 0 120 / 120 .9 % Sodium Chloride 100 ML @ 220 mls/hr IVPB ONCE PRN Rx#: [id number] Oral 0 / 0 0 / 0 Output: Urine 0 / 0 Total Dialysis (HD) Output 0 / 0 Rectal Tube 0 / 0 200 / 200 Catheter 0 / 0 0 / 0 Gastric Drainage 700 / 700 0 / 0 Other: Stool Consistency liquid Stool Color Brown Weight 94 kg Blood Glucose* 114 Hemodialysis Net Fluid Removed 0 (mL) Patient Weight 08/18/17 23:59 Weight 94 kg - General Appearance General appearance: Present: well-developed, well-nourished, appears started age EENT: Present: mucous membranes moist Additional Comments: harsh Cardiology: Present: edema, regular rate, regular rhythm Additional Comments: mild generalized edema, AR 130-140 Gastrointestinal: Present: absent bowel sounds Integumentary: Present: warm and dry - Lab 08/18/17 02:50 08/18/17 02:50 Most recent lab results ABG pH 7.37 pH Units (7.32-7.45) 08/18/17 05:56 ABG pCO2 49 mmHg (35-45) H 08/18/17 05:56 ABG pO2 91 mmHg (85-104) 08/18/17 05:56 ABG HCO3 28 mEq/L (21-27) H 08/18/17 05:56 ABG O2 Saturation 97 % (95-98) 08/18/17 05:56 Calcium 5.9 mg/dL (8.6-10.3) L* 08/18/17 02:50 Phosphorus 8.2 mg/dL (2.7-4.5) H 08/17/17 18:30 Magnesium 1.9 mg/dL (1.6-2.6) 08/18/17 02:50 - VTE Documentation of Mechanical Device: Intermittent pneumatic compression device Consult Discharge Plan - Plan Referrals: NONE,PCP [Primary Care Provider] -
--- NOTE | 2017-08-18 09:18 | Pulmonology Progress Note ---
Date of Encounter: 08/18/17 Time of Encounter: 09:18 Assessment and Plan (1) Sepsis Current Visit: Yes Status: Acute White count remains elevated and patient is tachycardic unclear source of infection but clearly lower extremity is very possible. Although he has been on vancomycin and ceftriaxone since admission I have stopped ceftriaxone and will start meropenem. I have also recultured the patient. There is no evidence of lower extremity necrotizing fasciitis. Lactate today is within normal limits. I will also start a crystalloid infusion for insensible losses Qualifiers: Qualified Code(s): A41.9 - Sepsis, unspecified organism (2) Thrombocytopenia Current Visit: Yes Status: Acute I believe that this is multifactorial. He is low probability for heparin- induced thrombocytopenia and preliminary DVT scans of the extremities is negative so I think this is very unlikely. This is most consistent with sepsis critical illness and renal replacement therapy and possible medication effect. Peripheral smear has been ordered and is pending interpretation by the pathologist I have checked patient's fibrinogen level and it is high consistent with acute inflammatory process but not DIC and his INR is essentially normal today as well. There is no active evidence of hemorrhage or extravasation. I believe that the risk of deep venous thrombosis is higher than the risk of heparin-induced thrombocytopenia and so we will continue DVT prophylaxis with heparin for now and also this can be used in the dialysis circuit as needed. No indication for transfusion of platelets at this time. (3) Overdose by amphetamine Current Visit: Yes Status: Acute Patient came in with overdose of methamphetamines onboard I suspect this is a particularly large dose and his had cardiac toxicity as a result in therapy should be out of the system by this point however he will need a social service evaluation prior to discharge Qualifiers: Injury intent: undetermined intent Qualified Code(s): T43.624A - Poisoning by amphetamines, undetermined, initial encounter (4) HALIMA (acute kidney injury) Current Visit: Yes Status: Acute This is multifactorial including shock rhabdomyolysis and possible infection. Still is and uric and likely will need renal replacement today we are monitoring his electrolytes daily. The darkness of his urine I believe is consistent with myoglobinuria (5) Compartment syndrome of right lower extremity Current Visit: Yes Status: Acute Orthopedic surgery has evaluated the patient he went for emergent fasciotomy is postop day #1 with wound VAC in place it appears that there is preserved neurovascular function we will follow this closely Qualifiers: Encounter type: initial encounter Qualified Code(s): T79.A21A - Traumatic compartment syndrome of right lower extremity, initial encounter (6) DVT prophylaxis Current Visit: Yes Status: Acute Continue DVT prophylaxis with heparin as outlined above (7) Elevated troponin Current Visit: Yes Status: Acute This is secondary to toxic effects of amphetamine and demand ischemia cardiology is evaluating the patient no plan for invasive procedure at this time he has a globally reduced ejection fraction which will need follow-up echocardiogram (8) Lactic acidosis Current Visit: Yes Status: Acute (9) Respiratory failure Current Visit: Yes Status: Acute He remained sedated on the ventilator I do not believe he is a candidate for spontaneous breathing trial a day because of metabolic derangements likely infection. We will reassess tomorrow - acceptable gas exchange today on ABG repeat in the morning Qualifiers: Chronicity: acute Respiratory failure complication: unspecified whether with hypoxia or hypercapnia Qualified Code(s): J96.00 - Acute respiratory failure, unspecified whether with hypoxia or hypercapnia (10) Tachycardia Current Visit: Yes Status: Acute This is sinus and secondary to pain and likely infection will need to treat underlying cause Patient remains full code I have decided his mother at bedside had a conversation with her about overall status all questions answered at bedside today she is very tearful and understandably concerned about her son's prognosis which I said remains critical. Subjective Principal diagnosis: Overdose Interval history: Patient went for emergent fasciotomy for right lower extremity compartment syndrome he now has a wound. Has been stable on the vent remains tachycardic blood pressure has been stable he appears to be in pain but continues to receive sedation and analgesia for this afebrile overnight. Objective PUL Vital signs: Last Vital Signs Temp 99.7 F H 08/18/17 07:40 Pulse 134 08/18/17 09:00 Resp 16 08/18/17 09:00 BP 105/66 08/18/17 09:00 Pulse Ox 98 08/18/17 09:00 General appearance: appears uncomfortable Eyes: nonicteric ENT: oropharynx dry Effort: mildly labored Auscultation: bilateral: clear Cardiovascular: other (Rapid rate regular rhythm) Gastrointestinal: hypoactive bowel sounds, soft, non-tender Extremities: other (The left extremity is warm to touch with pulses palpable left extremity is cooler to touch but there is a pulse present. Wound VAC on the right in place extremity on the right [id number] otherwise normal) other (Patient opens eyes to voice command is able to nod head he does move all extremities to command) Ventilator Settings Ventilator Settings: Ventilator Settings, Last 8 Hours Ventilator Mode A/C Ventilator Mode A/C Ventilator Mode A/C Ventilator Mode A/C Ventilator Mode A/C Ventilator Mode A/C Ventilator Mode A/C Ventilator Mode A/C Ventilator Mode A/C Ventilator Mode A/C Ventilator Mode A/C Ventilator Tidal Volume 500 Setting Ventilator Tidal Volume 500 Setting Ventilator Tidal Volume 500 Setting Ventilator Tidal Volume 500 Setting Ventilator Tidal Volume 500 Setting Ventilator Tidal Volume 500 Setting Ventilator Tidal Volume 500 Setting Ventilator Tidal Volume 500 Setting Ventilator Tidal Volume 500 Setting Ventilator Tidal Volume 500 Setting Ventilator Tidal Volume 500 Setting Ventilator Respiratory Rate 12 Setting Ventilator Respiratory Rate 12 Setting Ventilator Respiratory Rate 12 Setting Ventilator Respiratory Rate 12 Setting Ventilator Respiratory Rate 12 Setting Ventilator Respiratory Rate 12 Setting Ventilator Respiratory Rate 12 Setting Ventilator Respiratory Rate 12 Setting Ventilator Respiratory Rate 12 Setting Ventilator Respiratory Rate 12 Setting Ventilator Respiratory Rate 12 Setting Actual Respiratory Rate 16 Actual Respiratory Rate 18 Actual Respiratory Rate 18 Actual Respiratory Rate 15 Actual Respiratory Rate 17 Actual Respiratory Rate 17 Actual Respiratory Rate 18 Actual Respiratory Rate 17 Actual Respiratory Rate 19 Actual Respiratory Rate 14 Positive End Expiratory 5 Pressure Positive End Expiratory 5 Pressure Positive End Expiratory 5 Pressure Positive End Expiratory 5 Pressure Positive End Expiratory 5 Pressure Positive End Expiratory 5 Pressure Positive End Expiratory 5 Pressure Positive End Expiratory 5 Pressure Positive End Expiratory 5 Pressure Positive End Expiratory 5 Pressure Positive End Expiratory 5 Pressure Peak Inspiratory Airway 25 Pressure Peak Inspiratory Airway 25 Pressure Peak Inspiratory Airway 25 Pressure Peak Inspiratory Airway 21 Pressure Peak Inspiratory Airway 26 Pressure Peak Inspiratory Airway 26 Pressure Peak Inspiratory Airway 25 Pressure Peak Inspiratory Airway 20 Pressure Peak Inspiratory Airway 27 Pressure Peak Inspiratory Airway 26 Pressure Results - Laboratory Findings CBC and BMP: 08/18/17 02:50 08/18/17 02:50 ABG ABG pH 7.37 pH Units (7.32-7.45) 08/18/17 05:56 ABG pCO2 49 mmHg (35-45) H 08/18/17 05:56 ABG pO2 91 mmHg (85-104) 08/18/17 05:56 ABG O2 Saturation 97 % (95-98) 08/18/17 05:56 PT/INR, D-dimer PT 17.3 Seconds (9.4-12.1) H 08/18/17 07:00 Abnormal lab findings: Abnormal lab results WBC 28.7 K/mcL (4.3-11.1) H 08/18/17 02:50 Plt Count 65 K/mcL (140-400) L 08/18/17 02:50 MPV 13.1 fL (9.4-12.4) H 08/18/17 02:50 Band Neutrophils % 20.0 % (0-4) H 08/18/17 02:50 Neutrophils # 25.3 K/mcL (1.6-8.9) H 08/18/17 02:50 Monocytes # 1.7 K/mcL (0.0-1.3) H 08/18/17 02:50 Nucleated RBCs/100 WBC 0.2 /100 WBC (0) H 08/18/17 02:50 Reactive Lymphocytes Present (Not Present) A 08/16/17 03:25 Smudge Cells Present (Not Present) A 08/16/17 03:25 Toxic Granulation Present (Not Present) A 08/16/17 03:25 Platelet Estimate Decreased (Normal) L 08/18/17 02:50 Immature Plt Fraction 15.4 % (1.1-6.1) H 08/17/17 04:00 Anisocytosis 1+ (Not Present) A 08/16/17 03:25 PT 17.3 Seconds (9.4-12.1) H 08/18/17 07:00 Fibrinogen 526 mg/dL (169-393) H 08/18/17 07:00 ABG pCO2 49 mmHg (35-45) H 08/18/17 05:56 ABG HCO3 28 mEq/L (21-27) H 08/18/17 05:56 ABG Total CO2 30 mEq/L (20-26) H 08/18/17 05:56 VBG pH 7.22 pH Units (7.32-7.42) L 08/16/17 17:18 Sodium 135 mEq/L (136-145) L 08/18/17 02:50 Potassium 5.3 mEq/L (3.5-5.1) H D 08/18/17 02:50 Chloride 97 mEq/L (98-107) L 08/18/17 02:50 Carbon Dioxide 33 mEq/L (23-29) H 08/18/17 02:50 BUN 33 mg/dL (6-20) H 08/18/17 02:50 Creatinine 5.63 mg/dL (0.70-1.30) H 08/18/17 02:50 Est GFR ( Amer) 15 (> 60) L 08/18/17 02:50 Est GFR (Non-Af Amer) 12 (> 60) L 08/18/17 02:50 Glucose 114 mg/dL (70-105) H 08/18/17 02:50 POC Glucose 103 (58-89) H 08/17/17 15:25 Calcium 5.9 mg/dL (8.6-10.3) L* 08/18/17 02:50 Venous Ioniz Calcium 0.68 mmol/L (1.15-1.35) L 08/16/17 17:18 Phosphorus 8.2 mg/dL (2.7-4.5) H 08/17/17 18:30 Creatine Kinase > 62876 Units/L (30-223) H 08/18/17 07:00 Troponin I 6.82 ng/mL (< 0.04) H* 08/16/17 08:00 Albumin 2.6 g/dL (3.5-5.7) L 08/17/17 18:30 Urine Color Red (Yellow) A 08/15/17 22:14 Urine Clarity Cloudy (Clear) A 08/15/17 22:14 Urine Protein 100 mg/dL (Neg-Trace) H 08/15/17 22:14 Urine Blood Large (Negative) H 08/15/17 22:14 Ur Leukocyte Esterase Small (Negative) H 08/15/17 22:14 Urine Microscopic RBC TNTC per hpf (0-3) H 08/15/17 22:14 Vancomycin Trough 24.7 mcg/mL (10-20) H* 08/16/17 18:50 Salicylates < 5.0 mg/dL (15.0-30.0) L 08/15/17 19:41 Acetaminophen < 1.0 mcg/mL (10-30) L 08/15/17 19:41 Ur Amphetamines Screen Positive ng/mL (Swoxqm=4170) H 08/15/17 22:14 U Benzodiazepines Scrn Positive ng/mL (Lwdudq=189) H 08/15/17 22:14 U Marijuana (THC) Screen Positive ng/mL (Cutoff = 50) H 08/15/17 22:14 - Diagnostic Findings Chest x-ray: report reviewed, image reviewed - Clinical Findings Intake & Output: Intake & Output 08/17/17 08/18/17 08/18/17 23:59 07:59 15:59 Intake Total 670.5 / 670.5 402 / 402 Output Total 700 / 700 200 / 200 Balance -29.5 / -29.5 202 / 202 Weight 94 kg - VTE Documentation of Mechanical Device: Intermittent pneumatic compression device Consult Discharge Plan - Plan Referrals: NONE,PCP [Primary Care Provider] - Critical Care Time Critical Care Time: Yes Total Critical Care Time: 35 Attestation: I spent Critical Care time with this patient. It involved decision making of high complexity to assess, manipulate, and support vital organ system failure and/or to prevent further life threatening deterioration of the patient's condition. The time involved in the performance of separately reportable procedures was not counted toward critical care time.
[2017-08-18 10:48] LABS: Hemoglobin 12.1 g/dL (12.9-16.9); Mean Platelet Volume 12.4 fL (9.4-12.4); Nucleated Red Blood Cells 0.1 /100 WBC (0); Red Cell Distribution Width 13.6 % (11.5-14.5)
[2017-08-18 10:49] LABS: Hematocrit 36.2 % (37.5-50.1); Mean Corpuscular HGB Conc 33.4 g/dL (31.6-35.5); Mean Corpuscular Hemoglobin 29.2 pg (28.0-33.3); Mean Corpuscular Volume 87.4 fL (83.0-100.0); Red Blood Count 4.14 M/mcL (4.19-5.50)
[2017-08-18 10:51] LABS: Platelet Count 72 K/mcL (140-400)
[2017-08-18 10:53] LABS: VBG Ionized Calcium 0.71 mmol/L (1.15-1.35)
[2017-08-18] MEDS ORDERED: Vancomycin 1,500 MG in D5% in Water 250 ML IVPB SCH (11:00)
[2017-08-18] MEDS ORDERED: Vancomycin 1,000 MG in D5% in Water 250 ML IVPB ONE (11:00)
[2017-08-18] MEDS ORDERED: Vancomycin 1 EACH in EMPTY BAG 1 EACH IVPB SCH (11:00)
[2017-08-18 11:05] LABS: Lymphocytes # 2.8 K/mcL (0.6-4.6); Monocytes # 1.1 K/mcL (0.0-1.3); Neutrophils # 23.7 K/mcL (1.6-8.9)
[2017-08-18 11:06] LABS: Platelet Estimate Decreased (Normal); Toxic Granulation Present (Not Present)
[2017-08-18 11:25] LABS: Calcium 5.9 mg/dL (8.6-10.3); Potassium 5.6 mEq/L (3.5-5.1)
[2017-08-18] MEDS ORDERED: *HR* Rocuronium Bromide 50 MG/5 ML VIAL IVP ONE (11:46)
--- NOTE | 2017-08-18 12:02 | Orthopedics Progress Note ---
Date of Encounter: 08/18/17 Time of Encounter: 11:59 - Assessment and Plan (1) Compartment syndrome of right lower extremity Current Visit: Yes Status: Acute Qualifiers: Qualified Code(s): T79.A21A - Traumatic compartment syndrome of right lower extremity, initial encounter Subjective Principal diagnosis: Overdose Interval history: S: Intubated and sedated O: Right lower extremity with VAC in place 200mL out since surgery of sanguinous fluid Dressing in place Foot with sluggish capillary refill but dopplerable DP and PT pulses which appear strong A: Postoperative day 1 after 4 compartment fasciotomy of the right leg due to compartment syndrome from presumed reperfusion injury P: Plan on second look I&D on Saturday to evaluate for muscle function and ability to close the wound An meantime continue elevation strictly above the level of the heart I did discuss with the critical care team that there did not appear to be infection of the muscle seen intraoperatively. Objective Vital signs: Vital Signs Temp Pulse Resp BP Pulse Ox 08/18/17 11:00 133 17 104/59 98 08/18/17 10:00 133 17 104/61 95 08/18/17 09:51 17 101/66 98 08/18/17 09:00 134 16 105/66 98 08/18/17 08:04 18 100/81 98 08/18/17 08:00 134 16 105/66 98 08/18/17 07:40 99.7 F H 08/18/17 07:00 132 08/18/17 06:00 140 15 118/63 99 08/18/17 05:00 138 17 115/74 98 08/18/17 04:00 140 15 115/77 98 08/18/17 03:57 18 98 08/18/17 03:42 100.8 F H 08/18/17 03:00 144 17 113/81 98 08/18/17 02:29 28 98 08/18/17 02:00 146 16 103/61 99 08/18/17 01:00 144 16 112/72 99 08/18/17 00:00 99.7 F H 144 14 104/93 99 08/17/17 23:18 17 99 08/17/17 23:00 144 17 98/74 99 08/17/17 22:00 146 18 104/71 99 08/17/17 21:33 18 99 08/17/17 21:00 146 18 118/67 99 08/17/17 20:00 144 19 106/68 98 08/17/17 19:59 17 98 08/17/17 19:25 98.7 F 08/17/17 19:15 146 12 101/81 98 08/17/17 18:00 144 21 104/85 98 08/17/17 17:45 98.4 F 12 93/72 08/17/17 17:20 92/67 08/17/17 17:15 18 64/36 96 08/17/17 17:05 89/54 08/17/17 17:00 138 21 79/45 100 08/17/17 16:50 100/68 08/17/17 16:35 96/66 08/17/17 16:20 98/58 08/17/17 16:05 95/69 08/17/17 16:00 138 21 95/69 100 08/17/17 15:50 98/64 08/17/17 15:46 98.5 F 08/17/17 15:35 92/55 08/17/17 15:33 19 91/65 98 08/17/17 15:20 82/63 08/17/17 15:05 90/48 08/17/17 15:00 138 23 78/58 99 08/17/17 14:50 97/54 08/17/17 14:35 111/55 08/17/17 14:20 98.5 F 14 104/57 08/17/17 14:00 135 19 91/65 98 08/17/17 13:57 24 97/64 98 08/17/17 13:00 98.1 F 130 20 97/61 98 08/17/17 12:00 126 18 87/58 100 Intake and Output 08/17/17 08/18/17 08/18/17 23:59 07:59 15:59 Intake Total 670.5 / 670.5 402 / 402 10 10 Output Total 700 / 700 200 / 200 200 / 200 Balance -29.5 / -29.5 202 / 202 -190 / -190 Intake: IV Fluids 670.5 / 670.5 402 / 402 10 / 10 FentaNYL (PF) 1,000 MCG In 0.9 100 / 100 100 / 100 % Sodium Chloride 80 ML @ 50 MCG/HR 5 mls/hr IVC CONT YAEL Rx #:[id number] Versed 50 MG In 0.9 % Sodium 39.5 / 39.5 100 / 100 Chloride 90 ML @ 2 MG/HR 4 mls/ hr IVC CONT YAEL Rx#:[id number] Phenylephrine 20 MG In Dextrose 531 / 531 82 / 82 5% 500 ML @ 40 MCG/MIN 60.24 mls/hr IVC CONT YAEL Rx#: [id number] Merrem 500 MG In Water for inj. 10 / 10 (sterile) 10 ML @ 200 mls/hr IVP Q12H YAEL Rx#:[id number] Calcium Gluconate 2,000 MG In 0 120 / 120 .9 % Sodium Chloride 100 ML @ 220 mls/hr IVPB ONCE PRN Rx#: [id number] Oral 0 / 0 0 / 0 Output: Urine 0 / 0 Total Dialysis (HD) Output 0 / 0 Rectal Tube 0 / 0 200 / 200 Catheter 0 / 0 0 / 0 Gastric Drainage 700 / 700 0 / 0 Wound Drainage 200 / 200 Right Lower Leg 200 / 200 Other: Stool Consistency liquid Stool Color Brown Weight 94 kg Blood Glucose* 114 Hemodialysis Net Fluid Removed 0 (mL) Patient Weight 08/18/17 23:59 Weight 94 kg - Labs CBC & BMP: 08/18/17 10:35 08/18/17 10:35 Labs: Abnormal lab results WBC 27.5 K/mcL (4.3-11.1) H 08/18/17 10:35 RBC 4.14 M/mcL (4.19-5.50) L 08/18/17 10:35 Hgb 12.1 g/dL (12.9-16.9) L 08/18/17 10:35 Hct 36.2 % (37.5-50.1) L 08/18/17 10:35 Plt Count 72 K/mcL (140-400) L 08/18/17 10:35 Band Neutrophils % 20.0 % (0-4) H 08/18/17 02:50 Neutrophils # 23.7 K/mcL (1.6-8.9) H 08/18/17 10:35 Nucleated RBCs/100 WBC 0.1 /100 WBC (0) H 08/18/17 10:35 Reactive Lymphocytes Present (Not Present) A 08/16/17 03:25 Smudge Cells Present (Not Present) A 08/16/17 03:25 Toxic Granulation Present (Not Present) A 08/18/17 10:35 Platelet Estimate Decreased (Normal) L 08/18/17 10:35 Immature Plt Fraction 15.4 % (1.1-6.1) H 08/17/17 04:00 Anisocytosis 1+ (Not Present) A 08/16/17 03:25 PT 17.3 Seconds (9.4-12.1) H 08/18/17 07:00 Fibrinogen 526 mg/dL (169-393) H 08/18/17 07:00 ABG pCO2 49 mmHg (35-45) H 08/18/17 05:56 ABG HCO3 28 mEq/L (21-27) H 08/18/17 05:56 ABG Total CO2 30 mEq/L (20-26) H 08/18/17 05:56 VBG pH 7.22 pH Units (7.32-7.42) L 08/16/17 17:18 Sodium 134 mEq/L (136-145) L 08/18/17 10:35 Potassium 5.6 mEq/L (3.5-5.1) H 08/18/17 10:35 Chloride 96 mEq/L (98-107) L 08/18/17 10:35 Carbon Dioxide 30 mEq/L (23-29) H 08/18/17 10:35 BUN 43 mg/dL (6-20) H 08/18/17 10:35 Creatinine 6.37 mg/dL (0.70-1.30) H 08/18/17 10:35 Est GFR ( Amer) 13 (> 60) L 08/18/17 10:35 Est GFR (Non-Af Amer) 11 (> 60) L 08/18/17 10:35 Glucose 111 mg/dL (70-105) H 08/18/17 10:35 POC Glucose 94 (58-89) H 08/18/17 11:55 Calcium 5.9 mg/dL (8.6-10.3) L* 08/18/17 10:35 Venous Ioniz Calcium 0.71 mmol/L (1.15-1.35) L 08/18/17 10:50 Phosphorus 8.2 mg/dL (2.7-4.5) H 08/17/17 18:30 Creatine Kinase > 68051 Units/L (30-223) H 08/18/17 07:00 Troponin I 5.76 ng/mL (< 0.04) H* 08/18/17 10:35 Albumin 2.6 g/dL (3.5-5.7) L 08/17/17 18:30 Urine Color Red (Yellow) A 08/15/17 22:14 Urine Clarity Cloudy (Clear) A 08/15/17 22:14 Urine Protein 100 mg/dL (Neg-Trace) H 08/15/17 22:14 Urine Blood Large (Negative) H 08/15/17 22:14 Ur Leukocyte Esterase Small (Negative) H 08/15/17 22:14 Urine Microscopic RBC TNTC per hpf (0-3) H 08/15/17 22:14 Vancomycin Trough 24.7 mcg/mL (10-20) H* 08/16/17 18:50 Salicylates < 5.0 mg/dL (15.0-30.0) L 08/15/17 19:41 Acetaminophen < 1.0 mcg/mL (10-30) L 08/15/17 19:41 Ur Amphetamines Screen Positive ng/mL (Chdatl=0799) H 08/15/17 22:14 U Benzodiazepines Scrn Positive ng/mL (Lxaoij=893) H 08/15/17 22:14 U Marijuana (THC) Screen Positive ng/mL (Cutoff = 50) H 08/15/17 22:14 - VTE Documentation of Mechanical Device: Intermittent pneumatic compression device Consult Discharge Plan - Plan Referrals: NONE,PCP [Primary Care Provider] -
[2017-08-18 15:52] LABS: Alanine Aminotransferase > 500 Units/L (7-52); Albumin 2.6 g/dL (3.5-5.7); Albumin/Globulin Ratio 1.1 (1.1-2.2); Alkaline Phosphatase 72 Units/L (34-104); Aspartate Amino Transferase > 3000 Units/L (13-39); Bilirubin,Direct 0.1 mg/dL (0.0-0.2); Bilirubin,Indirect 0.5 mg/dL (0.0-1.2); Bilirubin,Total 0.6 mg/dL (0.3-1.0); Globulin 2.4 g/dL (2.4-3.5)
[2017-08-18 18:49] LABS: Adenovirus F 40/41 PCR Not detected (Not detect); Astrovirus PCR Not detected (Not detect); C.difficile Toxin A/B by PCR Not detected (Not detect); Campylobacter by PCR Not detected (Not detect); Cryptosporidium by PCR Not detected (Not detect); Cyclospora cayetanensis PCR Not detected (Not detect); E. coli O157 by PCR Not detected (Not detect); Entamoeba histolytica PCR Not detected (Not detect); Enteroaggregative E.coli(EAEC) Not detected (Not detect); Enteropathogenic E.coli(EPEC) Not detected (Not detect); Enterotoxigenic E.coli (ETEC) Not detected (Not detect); Giardia lamblia PCR Not detected (Not detect); Norovirus GI/GII PCR Not detected (Not detect); Plesiomonas shigelloides PCR Not detected (Not detect); Rotavirus A PCR Not detected (Not detect); Salmonella PCR Not detected (Not detect); Sapovirus PCR Not detected (Not detect); Shig/EnteroinvasiveE coli EIEC Not detected (Not detect); Shigalike tox-prod E coli STEC Not detected (Not detect); Vibrio PCR Not detected (Not detect); Vibrio cholerae PCR Not detected (Not detect); Yersinia enterocolitica PCR Not detected (Not detect)
[2017-08-18 23:33] LABS: VBG Ionized Calcium 0.72 mmol/L (1.15-1.35); VBG PH 7.27 pH Units (7.32-7.42)
--- NOTE | 2017-08-19 00:35 | Cardiology Progress Note ---
Date of Encounter: 08/19/17 Time of Encounter: 17:00 Assessment and Plan (1) Tachycardia Current Visit: Yes Status: Acute Pt remains tachycardic, however heart rate is trending down, half life of methamphetamine in this situation of unknown amount ingested, poor renal clearance, can vary from 12 to 34 hours, suspect tachycardia due to continued methamphetamine toxicity, however in light of decreased LV function on previous echo, will repeat limited echo in AM to eval LV function. PT underwent CHRISTY on , did not note new structural issue such as aortic root dissection or valvular dysfunction, unlikely to be contributing to tachycardia. Pt is tolerating tach well, continue supportive care. (2) Overdose by amphetamine Current Visit: Yes Status: Acute Slowly improving, so far appears nuerologically intact, able to open eyes and follow commands. Qualifiers: Injury intent: intentional self-harm Qualified Code(s): T43.622A - Poisoning by amphetamines, intentional self-harm, initial encounter (3) Elevated troponin Current Visit: Yes Status: Acute Pt's troponin's 0.11, 4.65, 6.82, now trending down, continue to monitor, most consistent with demand perfusion mismatch, poor renal execretion with HALIMA Echo shows global LV hypokinesia and EF of 35-40%, no subsegmental wall motion abnormalites, repeat echo in am, limited study for new wall motion abnormalites. (4) Respiratory failure Current Visit: Yes Status: Acute Continues to require vent support. Qualifiers: Chronicity: acute Respiratory failure complication: unspecified whether with hypoxia or hypercapnia Qualified Code(s): J96.00 - Acute respiratory failure, unspecified whether with hypoxia or hypercapnia Discussion w patient/family: The assessment and plan as outlined above was discussed with the patient and/or family members who expressed understanding and agreement. All questions were answered. Thank you for involving us in the care of your patient. Please call with any questions. Subjective Principal diagnosis: Overdose Interval history: Pt sedated, opens eyes, moves upper extremites to command, Objective Vital Signs, Last 4 Hours Temp Pulse Resp BP Pulse Ox 08/19/17 00:23 97.2 F L 08/19/17 00:00 105 13 120/67 97 08/18/17 23:29 19 98 08/18/17 23:00 107 13 114/66 94 08/18/17 22:00 109 13 122/68 95 08/18/17 21:37 12 97 08/18/17 21:00 110 12 117/75 98 General: Other (sedated, intubated) HEENT: Atraumatic, Normocephaly Neck: No JVD, Normal carotid pulses Cardiac: Reg Rate and Rhythm, Normal S1 and S2, Other (persistant tachycardia trending downward, now in 100 to 120 bpm, improved from 130s over last 24 hours. ) Lungs: Other (Vent, scattered rhonchi) Abdomen: Soft, Non-Tender Skin: No rashes noted on visualized skin Musculoskeletal: No Chest Wall Tenderness Extremities: Other (right lower ext in surgical dressing. ) Results 08/18/17 10:35 08/18/17 10:35 Lab Results 08/18/17 08/18/17 08/18/17 02:50 02:50 07:00 WBC 28.7 H Hgb 13.3 D Hct 39.6 Plt Count 65 L INR 1.6 Sodium 135 L Potassium 5.3 H D Chloride 97 L Carbon Dioxide 33 H BUN 33 H Creatinine 5.63 H Glucose 114 H Calcium 5.9 L* Magnesium 1.9 Total Bilirubin AST ALT Alkaline Phosphatase Troponin I 08/18/17 08/18/17 08/18/17 10:35 10:35 10:35 WBC 27.5 H Hgb 12.1 L Hct 36.2 L Plt Count 72 L INR Sodium 134 L Potassium 5.6 H Chloride 96 L Carbon Dioxide 30 H BUN 43 H Creatinine 6.37 H Glucose 111 H Calcium 5.9 L* Magnesium Total Bilirubin AST ALT Alkaline Phosphatase Troponin I 5.76 H* 08/18/17 10:35 WBC Hgb Hct Plt Count INR Sodium Potassium Chloride Carbon Dioxide BUN Creatinine Glucose Calcium Magnesium Total Bilirubin 0.6 AST > 3000 H ALT > 500 H Alkaline Phosphatase 72 Troponin I - VTE Documentation of Mechanical Device: Intermittent pneumatic compression device Consult Discharge Plan - Plan Referrals: NONE,PCP [Primary Care Provider] -
[2017-08-19] MEDS: Ipratropium/Albuterol Neb 3 ML IH SCH ×4 (03:24→22:56)
[2017-08-19] MEDS: FentaNYL (PF) 1,000 MCG in 0.9 % Sodium Chloride 80 ML IVC SCH ×3 (03:32→21:40)
[2017-08-19 03:58] LABS: Basophils # 0.1 K/mcL (0.0-0.2); Basophils % 0.4 %; Hematocrit 32.3 % (37.5-50.1); Hemoglobin 10.5 g/dL (12.9-16.9); Immature Granulocytes % 2.4 % (0-4); Lymphocytes # 1.1 K/mcL (0.6-4.6); Lymphocytes % 4.4 %; Mean Corpuscular HGB Conc 32.5 g/dL (31.6-35.5); Mean Corpuscular Hemoglobin 28.9 pg (28.0-33.3); Mean Platelet Volume 11.6 fL (9.4-12.4); Monocytes # 1.1 K/mcL (0.0-1.3); Monocytes % 4.4 %; Neutrophils # 22.6 K/mcL (1.6-8.9); Red Blood Count 3.63 M/mcL (4.19-5.50); Red Cell Distribution Width 13.7 % (11.5-14.5); Segmented Neutrophils % 88.4 %
[2017-08-19 04:01] LABS: Platelet Count 73 K/mcL (140-400)
[2017-08-19 04:08] LABS: VBG Ionized Calcium 0.62 mmol/L (1.15-1.35); VBG PH 7.26 pH Units (7.32-7.42)
[2017-08-19] MEDS: Lacri-Lube 3.5 GM TUBE BOTH EYES SCH ×6 (04:29→23:09)
[2017-08-19 05:43] LABS: Platelet Estimate Decreased (Normal)
[2017-08-19 05:54] LABS: ABG Base Excess 1 mEq/L (-2 to 3); ABG HCO3 29 mEq/L (21-27); ABG Oxygen Saturation 98 % (95-98); ABG PCO2 63 mmHg (35-45); ABG PH 7.26 pH Units (7.32-7.45); ABG PO2 115 mmHg (85-104); ABG TCO2 30 mEq/L (20-26); Blood Gas Modality ASSIST CONTROL; Blood Gas PEEP 5 cm H2O; Blood Gas Respiration Rate 12; Blood Gas VT 500 cc
[2017-08-19] MEDS: *HR* Heparin 5,000 UNIT/ML VIAL SQ SCH ×3 (06:06→20:34)
[2017-08-19] MEDS: Meropenem 500 MG in Water for inj. (sterile) 20 ML 10 ML IVP SCH (06:08)
--- NOTE | 2017-08-19 09:00 | Pulmonology Progress Note ---
<Kenney Triana - Last Filed: 08/19/17 11:01> Date of Encounter: 08/19/17 Time of Encounter: 08:58 Assessment and Plan (1) Respiratory failure Current Visit: Yes Status: Acute The patient remains intubated at this time. We will likely begin an SBT today. We will continue to wean the patient's sedation over the course of the next 24 hours with likely extubation over the next 24 hours as well. Qualifiers: Chronicity: acute Respiratory failure complication: unspecified whether with hypoxia or hypercapnia Qualified Code(s): J96.00 - Acute respiratory failure, unspecified whether with hypoxia or hypercapnia (2) Obtundation Current Visit: Yes Status: Acute Continue to improve, we will reduce the patient's sedation and likely begin the patient on Precedex today. (3) Tachycardia Current Visit: Yes Status: Acute Continued improvement of the tachycardia. The patient will receive a limited echocardiogram today per cardiology for reevaluation. We will continue to monitor. Cardiology consulted and actively participating in care. (4) Substance abuse Current Visit: Yes Status: Acute (5) Lactic acidosis Current Visit: Yes Status: Resolved We will continue to trend the patient's lactic acid to follow fluid resuscitation. If the patient's lactic acid continues to increase, we will consider further imaging to include CT of the abdomen and pelvis. (6) Elevated troponin Current Visit: Yes Status: Acute Likely reactive to rhabdomyolysis and acute renal failure. We will continue to monitor. Cardiology remains on board with limited echocardiogram ordered. (7) HALIMA (acute kidney injury) Current Visit: Yes Status: Acute Patient remains on intermittent dialysis. We will continue with frequent re- evaluations of patient's renal function. Nephrology consulted and actively participating in care. (8) Hematuria Current Visit: Yes Status: Acute Likely associated with traumatic insertion of Baird catheter and history of urethral stricture. We will continue to monitor the patient's urine and as well as hemoglobin. Qualifiers: Glomerular morphologic changes: unspecified whether glomerular morphologic changes present Qualified Code(s): N02.9 - Recurrent and persistent hematuria with unspecified morphologic changes (9) Rhabdomyolysis Current Visit: Yes Status: Acute Likely associated with patient's toxidrome as well as component of right lower shoulder to compartment syndrome. We will continue to monitor and the patient is receiving intermittent dialysis. Qualifiers: Rhabdomyolysis type: non-traumatic Qualified Code(s): M62.82 - Rhabdomyolysis (10) Compartment syndrome of right lower extremity Current Visit: Yes Status: Acute Patient currently being seen by orthopedic surgery who performed a fasciotomy of the right lower extremity. Wound VAC is currently in place with a moderate amount of swelling the remains of the right lower extremity. We will continue to monitor this with likely repeat surgical intervention by orthopedic surgery whether closing of a fasciotomy or skin graft will depend on patient swelling. We will continue to monitor. We will continue to elevate the right lower extremity as advised by orthopedic surgery. The patient has good capillary refill that is less than 2 seconds and palpable pulses of bilateral lower extremity is at this time. Qualifiers: Encounter type: initial encounter Qualified Code(s): T79.A21A - Traumatic compartment syndrome of right lower extremity, initial encounter Subjective Principal diagnosis: Overdose Interval history: Patient is done well overnight with the exception of some agitation. The patient is remained on a Versed drip. We will discontinue this today. The patient's fasciotomy has continued to improve and his swelling has remained in his right lower extremity. Patient has remained on intermittent dialysis and done well with this. His renal function continues to remain poor. We will continue to monitor this. The patient's leukocytosis has continued to progressively trended downwards. We will continue the antibiotics for now. CT scan demonstrates no overt signs of infection with the exception of some opacities noted in the bronchioles in the CT of the chest. There was concern for possible aspiration. Given the patient's unresponsive episode prior to coming to the emergency department, we will continue the patient on IV antibiotic this time for coverage. The patient's pH dropped overnight and the patient seemed to continue to increase. At that time his ventilator settings were changed accordingly. Objective PUL Vital signs: Last Vital Signs Temp 97.3 F L 08/19/17 07:45 Pulse 104 08/19/17 06:00 Resp 14 08/19/17 07:31 BP 115/76 08/19/17 06:00 Pulse Ox 98 08/19/17 07:31 General appearance: other (Patient currently sedated and intubated but intermittently agitated on any stimulus that is performed.) Eyes: nonicteric Effort: normal Auscultation: bilateral: diminished breath sounds Cardiovascular: other (Intermittent episodes of tachycardia that of trended downward over the past 24 hours.) Gastrointestinal: normoactive bowel sounds, soft Integumentary: other (No erythema or rash noted. Fasciotomy still in place with wound VAC on right lower extremity. No active extravasation, bleeding, discharge, erythema.) Extremities: other (Fasciotomy remains in place. Wound VAC in place and operating appropriately. They are still large amount of swelling of the right calf associated with the compartment syndrome. No other obvious injuries. Capillary refill in bilateral lower extremity less than 2 seconds. Bilateral palpable pulses in DP and PTs on the lower extremity.) other (Patient remained sedated on the ventilator at this time.) Ventilator Settings Ventilator Settings: Ventilator Settings, Last 8 Hours Ventilator Mode A/C Ventilator Mode A/C Ventilator Mode A/C Ventilator Mode A/C Ventilator Mode A/C Ventilator Mode A/C Ventilator Mode A/C Ventilator Mode A/C Ventilator Mode A/C Ventilator Mode A/C Ventilator Tidal Volume 550 Setting Ventilator Tidal Volume 500 Setting Ventilator Tidal Volume 500 Setting Ventilator Tidal Volume 500 Setting Ventilator Tidal Volume 500 Setting Ventilator Tidal Volume 500 Setting Ventilator Tidal Volume 500 Setting Ventilator Tidal Volume 500 Setting Ventilator Tidal Volume 500 Setting Ventilator Tidal Volume 500 Setting Ventilator Respiratory Rate 14 Setting Ventilator Respiratory Rate 12 Setting Ventilator Respiratory Rate 12 Setting Ventilator Respiratory Rate 12 Setting Ventilator Respiratory Rate 12 Setting Ventilator Respiratory Rate 12 Setting Ventilator Respiratory Rate 12 Setting Ventilator Respiratory Rate 12 Setting Ventilator Respiratory Rate 12 Setting Ventilator Respiratory Rate 12 Setting Actual Respiratory Rate 14 Actual Respiratory Rate 16 Actual Respiratory Rate 13 Actual Respiratory Rate 13 Actual Respiratory Rate 12 Actual Respiratory Rate 13 Actual Respiratory Rate 13 Actual Respiratory Rate 13 Actual Respiratory Rate 13 Positive End Expiratory 5 Pressure Positive End Expiratory 5 Pressure Positive End Expiratory 5 Pressure Positive End Expiratory 5 Pressure Positive End Expiratory 5 Pressure Positive End Expiratory 5 Pressure Positive End Expiratory 5 Pressure Positive End Expiratory 5 Pressure Positive End Expiratory 5 Pressure Positive End Expiratory 5 Pressure Peak Inspiratory Airway 26 Pressure Peak Inspiratory Airway 28 Pressure Peak Inspiratory Airway 25 Pressure Peak Inspiratory Airway 27 Pressure Peak Inspiratory Airway 28 Pressure Peak Inspiratory Airway 28 Pressure Peak Inspiratory Airway 26 Pressure Peak Inspiratory Airway 28 Pressure Peak Inspiratory Airway 27 Pressure Results - Laboratory Findings CBC and BMP: 08/19/17 03:42 08/18/17 10:35 ABG ABG pH 7.26 pH Units (7.32-7.45) L 08/19/17 05:50 ABG pCO2 63 mmHg (35-45) H 08/19/17 05:50 ABG pO2 115 mmHg (85-104) H 08/19/17 05:50 ABG O2 Saturation 98 % (95-98) 08/19/17 05:50 PT/INR, D-dimer PT 17.3 Seconds (9.4-12.1) H 08/18/17 07:00 Abnormal lab findings: Abnormal lab results WBC 25.6 K/mcL (4.3-11.1) H 08/19/17 03:42 RBC 3.63 M/mcL (4.19-5.50) L 08/19/17 03:42 Hgb 10.5 g/dL (12.9-16.9) L D 08/19/17 03:42 Hct 32.3 % (37.5-50.1) L 08/19/17 03:42 Plt Count 73 K/mcL (140-400) L 08/19/17 03:42 Band Neutrophils % 20.0 % (0-4) H 08/18/17 02:50 Neutrophils # 22.6 K/mcL (1.6-8.9) H 08/19/17 03:42 Nucleated RBCs/100 WBC 0.1 /100 WBC (0) H 08/18/17 10:35 Reactive Lymphocytes Present (Not Present) A 08/16/17 03:25 Smudge Cells Present (Not Present) A 08/16/17 03:25 Toxic Granulation Present (Not Present) A 08/18/17 10:35 Platelet Estimate Decreased (Normal) L 08/19/17 03:42 Immature Plt Fraction 15.4 % (1.1-6.1) H 08/17/17 04:00 Anisocytosis 1+ (Not Present) A 08/16/17 03:25 PT 17.3 Seconds (9.4-12.1) H 08/18/17 07:00 Fibrinogen 526 mg/dL (169-393) H 08/18/17 07:00 ABG pH 7.26 pH Units (7.32-7.45) L 08/19/17 05:50 ABG pCO2 63 mmHg (35-45) H 08/19/17 05:50 ABG pO2 115 mmHg (85-104) H 08/19/17 05:50 ABG HCO3 29 mEq/L (21-27) H 08/19/17 05:50 ABG Total CO2 30 mEq/L (20-26) H 08/19/17 05:50 VBG pH 7.26 pH Units (7.32-7.42) L 08/19/17 03:55 Sodium 134 mEq/L (136-145) L 08/18/17 10:35 Potassium 5.6 mEq/L (3.5-5.1) H 08/18/17 10:35 Chloride 96 mEq/L (98-107) L 08/18/17 10:35 Carbon Dioxide 30 mEq/L (23-29) H 08/18/17 10:35 BUN 43 mg/dL (6-20) H 08/18/17 10:35 Creatinine 6.37 mg/dL (0.70-1.30) H 08/18/17 10:35 Est GFR ( Amer) 13 (> 60) L 08/18/17 10:35 Est GFR (Non-Af Amer) 11 (> 60) L 08/18/17 10:35 Glucose 111 mg/dL (70-105) H 08/18/17 10:35 POC Glucose 99 (58-89) H 08/19/17 00:11 Calcium 5.9 mg/dL (8.6-10.3) L* 08/18/17 10:35 Venous Ioniz Calcium 0.62 mmol/L (1.15-1.35) L 08/19/17 03:55 Phosphorus 8.2 mg/dL (2.7-4.5) H 08/17/17 18:30 AST > 3000 Units/L (13-39) H 08/18/17 10:35 ALT > 500 Units/L (7-52) H 08/18/17 10:35 Creatine Kinase > 53152 Units/L (30-223) H 08/18/17 07:00 Troponin I 5.76 ng/mL (< 0.04) H* 08/18/17 10:35 Serum Total Protein 5.0 g/dL (6.4-8.9) L 08/18/17 10:35 Albumin 2.6 g/dL (3.5-5.7) L 08/18/17 10:35 Urine Color Red (Yellow) A 08/15/17 22:14 Urine Clarity Cloudy (Clear) A 08/15/17 22:14 Urine Protein 100 mg/dL (Neg-Trace) H 08/15/17 22:14 Urine Blood Large (Negative) H 08/15/17 22:14 Ur Leukocyte Esterase Small (Negative) H 08/15/17 22:14 Urine Microscopic RBC TNTC per hpf (0-3) H 08/15/17 22:14 Vancomycin Trough 24.7 mcg/mL (10-20) H* 08/16/17 18:50 Salicylates < 5.0 mg/dL (15.0-30.0) L 08/15/17 19:41 Acetaminophen < 1.0 mcg/mL (10-30) L 08/15/17 19:41 Ur Amphetamines Screen Positive ng/mL (Zppomh=2540) H 08/15/17 22:14 U Benzodiazepines Scrn Positive ng/mL (Rhrter=771) H 08/15/17 22:14 U Marijuana (THC) Screen Positive ng/mL (Cutoff = 50) H 08/15/17 22:14 - Clinical Findings Intake & Output: Intake & Output 08/18/17 08/19/17 08/19/17 23:59 07:59 15:59 Intake Total 580 / 580 100 / 100 Output Total 250 / 250 35 / 35 Balance 330 / 330 65 / 65 Weight 97.9 kg - VTE Documentation of Mechanical Device: Intermittent pneumatic compression device Consult Discharge Plan - Plan Referrals: NONE,PCP [Primary Care Provider] - - Attending Attestation I examined this patient and my medical decision-making was reviewed with the Resident Physician. I agree with the documented findings, disposition and treatment plan as described except to the extent set forth below. <Noy Simon - Last Filed: 08/20/17 08:37> Date of Encounter: 08/20/17 Objective PUL Vital signs: Last Vital Signs Temp 97.6 F 08/19/17 16:15 Pulse 89 08/19/17 18:00 Resp 14 08/19/17 18:00 BP 89/50 08/19/17 18:00 Pulse Ox 99 08/19/17 18:00 Ventilator Settings Ventilator Settings: Ventilator Settings, Last 8 Hours Ventilator Mode A/C Ventilator Mode A/C Ventilator Mode A/C Ventilator Mode A/C Ventilator Mode A/C Ventilator Mode A/C Ventilator Mode A/C Ventilator Mode A/C Ventilator Mode A/C Ventilator Mode A/C Ventilator Mode A/C Ventilator Tidal Volume 550 Setting Ventilator Tidal Volume 550 Setting Ventilator Tidal Volume 550 Setting Ventilator Tidal Volume 550 Setting Ventilator Tidal Volume 550 Setting Ventilator Tidal Volume 550 Setting Ventilator Tidal Volume 550 Setting Ventilator Tidal Volume 550 Setting Ventilator Tidal Volume 550 Setting Ventilator Tidal Volume 550 Setting Ventilator Tidal Volume 550 Setting Ventilator Respiratory Rate 14 Setting Ventilator Respiratory Rate 14 Setting Ventilator Respiratory Rate 14 Setting Ventilator Respiratory Rate 14 Setting Ventilator Respiratory Rate 14 Setting Ventilator Respiratory Rate 14 Setting Ventilator Respiratory Rate 14 Setting Ventilator Respiratory Rate 14 Setting Ventilator Respiratory Rate 14 Setting Ventilator Respiratory Rate 14 Setting Ventilator Respiratory Rate 14 Setting Actual Respiratory Rate 14 Actual Respiratory Rate 14 Actual Respiratory Rate 14 Actual Respiratory Rate 14 Actual Respiratory Rate 14 Actual Respiratory Rate 14 Actual Respiratory Rate 14 Actual Respiratory Rate 14 Actual Respiratory Rate 14 Actual Respiratory Rate 14 Actual Respiratory Rate 14 Positive End Expiratory 5 Pressure Positive End Expiratory 5 Pressure Positive End Expiratory 5 Pressure Positive End Expiratory 5 Pressure Positive End Expiratory 5 Pressure Positive End Expiratory 5 Pressure Positive End Expiratory 5 Pressure Positive End Expiratory 5 Pressure Positive End Expiratory 5 Pressure Positive End Expiratory 5 Pressure Positive End Expiratory 5 Pressure Peak Inspiratory Airway 27 Pressure Peak Inspiratory Airway 27 Pressure Peak Inspiratory Airway 25 Pressure Peak Inspiratory Airway 23 Pressure Peak Inspiratory Airway 23 Pressure Peak Inspiratory Airway 23 Pressure Peak Inspiratory Airway 22 Pressure Peak Inspiratory Airway 23 Pressure Peak Inspiratory Airway 23 Pressure Peak Inspiratory Airway 23 Pressure Peak Inspiratory Airway 25 Pressure Results - Laboratory Findings CBC and BMP: 08/19/17 03:42 08/19/17 03:42 ABG ABG pH 7.26 pH Units (7.32-7.45) L 08/19/17 05:50 ABG pCO2 63 mmHg (35-45) H 08/19/17 05:50 ABG pO2 115 mmHg (85-104) H 08/19/17 05:50 ABG O2 Saturation 98 % (95-98) 08/19/17 05:50 PT/INR, D-dimer PT 17.3 Seconds (9.4-12.1) H 08/18/17 07:00 Abnormal lab findings: Abnormal lab results WBC 25.6 K/mcL (4.3-11.1) H 08/19/17 03:42 RBC 3.63 M/mcL (4.19-5.50) L 08/19/17 03:42 Hgb 10.5 g/dL (12.9-16.9) L D 08/19/17 03:42 Hct 32.3 % (37.5-50.1) L 08/19/17 03:42 Plt Count 73 K/mcL (140-400) L 08/19/17 03:42 Band Neutrophils % 20.0 % (0-4) H 08/18/17 02:50 Neutrophils # 22.6 K/mcL (1.6-8.9) H 08/19/17 03:42 Nucleated RBCs/100 WBC 0.1 /100 WBC (0) H 08/18/17 10:35 Reactive Lymphocytes Present (Not Present) A 08/16/17 03:25 Smudge Cells Present (Not Present) A 08/16/17 03:25 Toxic Granulation Present (Not Present) A 08/18/17 10:35 Platelet Estimate Decreased (Normal) L 08/19/17 03:42 Immature Plt Fraction 15.4 % (1.1-6.1) H 08/17/17 04:00 Anisocytosis 1+ (Not Present) A 08/16/17 03:25 PT 17.3 Seconds (9.4-12.1) H 08/18/17 07:00 Fibrinogen 526 mg/dL (169-393) H 08/18/17 07:00 ABG pH 7.26 pH Units (7.32-7.45) L 08/19/17 05:50 ABG pCO2 63 mmHg (35-45) H 08/19/17 05:50 ABG pO2 115 mmHg (85-104) H 08/19/17 05:50 ABG HCO3 29 mEq/L (21-27) H 08/19/17 05:50 ABG Total CO2 30 mEq/L (20-26) H 08/19/17 05:50 VBG pH 7.26 pH Units (7.32-7.42) L 08/19/17 03:55 Sodium 134 mEq/L (136-145) L 08/19/17 03:42 Potassium 5.9 mEq/L (3.5-5.1) H 08/19/17 03:42 Chloride 96 mEq/L (98-107) L 08/19/17 03:42 BUN 62 mg/dL (6-20) H 08/19/17 03:42 Creatinine 8.05 mg/dL (0.70-1.30) H 08/19/17 03:42 Est GFR ( Amer) 10 (> 60) L 08/19/17 03:42 Est GFR (Non-Af Amer) 8 (> 60) L 08/19/17 03:42 Calcium 5.3 mg/dL (8.6-10.3) L* 08/19/17 03:42 Venous Ioniz Calcium 0.62 mmol/L (1.15-1.35) L 08/19/17 03:55 Phosphorus 8.2 mg/dL (2.7-4.5) H 08/17/17 18:30 AST > 3000 Units/L (13-39) H 08/18/17 10:35 ALT > 500 Units/L (7-52) H 08/18/17 10:35 Creatine Kinase > 04126 Units/L (30-223) H 08/19/17 03:42 Troponin I 5.76 ng/mL (< 0.04) H* 08/18/17 10:35 Serum Total Protein 5.0 g/dL (6.4-8.9) L 08/18/17 10:35 Albumin 2.6 g/dL (3.5-5.7) L 08/18/17 10:35 Urine Color Red (Yellow) A 08/15/17 22:14 Urine Clarity Cloudy (Clear) A 08/15/17 22:14 Urine Protein 100 mg/dL (Neg-Trace) H 08/15/17 22:14 Urine Blood Large (Negative) H 08/15/17 22:14 Ur Leukocyte Esterase Small (Negative) H 08/15/17 22:14 Urine Microscopic RBC TNTC per hpf (0-3) H 08/15/17 22:14 Vancomycin Trough 24.7 mcg/mL (10-20) H* 08/16/17 18:50 Salicylates < 5.0 mg/dL (15.0-30.0) L 08/15/17 19:41 Acetaminophen < 1.0 mcg/mL (10-30) L 08/15/17 19:41 Ur Amphetamines Screen Positive ng/mL (Rfmaud=3007) H 08/15/17 22:14 U Benzodiazepines Scrn Positive ng/mL (Kjnzlb=652) H 08/15/17 22:14 U Marijuana (THC) Screen Positive ng/mL (Cutoff = 50) H 08/15/17 22:14 - Clinical Findings Intake & Output: Intake & Output 08/19/17 08/19/17 08/19/17 07:59 15:59 23:59 Intake Total 200 / 200 800 / 800 300 / 300 Output Total 35 / 35 50 / 50 3600 / 3600 Balance 165 / 165 750 / 750 -3300 / -3300 Weight 97.9 kg - Attending Attestation I saw and evaluated this patient and my medical decision-making was reviewed with the Resident Physician. I agree with the documented findings, disposition and treatment plan as described except to the extent set forth below. We independently had [id number] contact with the patient I spent of 32 minutes of Critical Care time with this patient. It involved decision making of high complexity to assess, manipulate, and support vital organ system failure and/or to prevent further life threatening deterioration of the patient's condition. The time involved in the performance of separately reportable procedures was not counted toward critical care time. Patient seen and examined at bedside Labs, radiology, chart personally reviewed. DISTRICT LEADER:Patent is agitated on and off follows commands will transition to precedex will hold off seroquel or any other antipsychotics for concern of neurolept malignant syndrome Pulm: Patient has multifocal infiltrates in the imaging concern for aspiration pneumonia to continue broad spectrum antibiotics if the blood pressure more stable will think of diuresis Cards:Hemodynamically stable , ECHO showed EF normal Cardiology signed off appreciate the recommendations FEN-GI:To continue feeding according to nutrition recs Renal:HALIMA due to Severe Rhabdomyolysis due to RLE compartment syndrome intermittent HD ID: No active source emprically treating against intra abdominal source or pulmonary source his leukocytosis is coming down slowly will plan descalating the antibiotics Heme/Onc:Labs reviewed Endo: Glucose Monitored Integ/MSK: Skin Care per routine ICU Nursing Protocol to prevent ulcers. Lines: All lines examined without evidence of infection : Dispo: Critically ill diffult liberation from the vent because of agitation CODE:Full Code updated Mother about the condition .
--- NOTE | 2017-08-19 09:16 | Cardiology Progress Note ---
Date of Encounter: 08/19/17 Time of Encounter: 08:30 Assessment and Plan (1) Tachycardia Current Visit: Yes Status: Acute Pt tachycardia continues to improve. HR in the low 100s. half life of methamphetamine in this situation of unknown amount ingested, poor renal clearance, can vary from 12 to 34 hours, suspect tachycardia due to continued methamphetamine toxicity. Plan: Continue to treat underlying toxidrome. Repeat limited ECHO ordered. (2) Overdose by amphetamine Current Visit: Yes Status: Acute Slowly improving Hope to extubate later today Drug likely taking longer to clear from body 2/2 to HALIMA. Nephro on board. Patient receiving intermittent dialysis. Qualifiers: Encounter type: initial encounter Injury intent: undetermined intent Qualified Code(s): T43.624A - Poisoning by amphetamines, undetermined, initial encounter (3) Elevated troponin Current Visit: Yes Status: Acute Pt's troponin's 0.11, 4.65, 6.82, 5.76 now trending down. Likely 2/2 to amphetamine OD causing demand ischemia, rhabdo, HALIMA. ECHO showed global LV hypokinesia EF 35-40%. No subsegmental wall motion abnormalities. Plan: Ordered Limit Echo this morning to evaluate for wall motion abnormalities. (4) Respiratory failure Current Visit: Yes Status: Acute Pt still on Vent this morning. Discussed with primary team and plan is to wean sedation today and attempt SBT this afternoon with hopes of extubation. Qualifiers: Chronicity: acute Respiratory failure complication: unspecified whether with hypoxia or hypercapnia Qualified Code(s): J96.00 - Acute respiratory failure, unspecified whether with hypoxia or hypercapnia Discussion w patient/family: The assessment and plan as outlined above was discussed with the patient and/or family members who expressed understanding and agreement. All questions were answered. Thank you for involving us in the care of your patient. Please call with any questions. Subjective Principal diagnosis: Overdose Interval history: 27 yo M admitted for amphetamine OD after ingesting unknown amount of unknown substance while in police custody. Patient remains intubated and sedated at this time. Plan is for Spontaneous Breathing trial later today with possible extubation. Patient's tachycardia continues to improve. Objective Vital Signs, Last 4 Hours Temp Pulse Resp BP Pulse Ox 08/19/17 07:45 97.3 F L 08/19/17 07:31 14 98 08/19/17 06:00 104 16 115/76 98 General: Other (intubated on sedation) HEENT: Atraumatic, Normocephaly Neck: No JVD Cardiac: Normal S1 and S2, No Murmur, Other (Tachycardic) Lungs: Other (coarse breath sounds) Neuro: Other (Sedated on Vent) Abdomen: Soft Skin: Other (RLE Wrapped after Fasciotomy) Extremities: No Clubbing, No Cyanosis, No Edema, Normal Pulses Results 08/19/17 03:42 08/19/17 03:42 Lab Results 08/18/17 08/18/17 08/18/17 10:35 10:35 10:35 WBC 27.5 H Hgb 12.1 L Hct 36.2 L Plt Count 72 L Sodium 134 L Potassium 5.6 H Chloride 96 L Carbon Dioxide 30 H BUN 43 H Creatinine 6.37 H Glucose 111 H Calcium 5.9 L* Total Bilirubin AST ALT Alkaline Phosphatase Troponin I 5.76 H* 08/18/17 08/19/17 10:35 03:42 WBC 25.6 H Hgb 10.5 L D Hct 32.3 L Plt Count 73 L Sodium Potassium Chloride Carbon Dioxide BUN Creatinine Glucose Calcium Total Bilirubin 0.6 AST > 3000 H ALT > 500 H Alkaline Phosphatase 72 Troponin I - VTE Documentation of Mechanical Device: Intermittent pneumatic compression device Consult Discharge Plan - Plan Referrals: NONE,PCP [Primary Care Provider] -
[2017-08-19] MEDS: Phenylephrine 20 MG in D5% in Water 500 ML IVC SCH ×2 (09:42→14:08)
[2017-08-19] MEDS: Chlorhexidine Rinse 15 ML MOUTHWASH MM SCH ×2 (09:49→20:06)
[2017-08-19] MEDS: Pantoprazole 40 MG VIAL IVP SCH (09:49)
[2017-08-19] MEDS: Dexmedetomidine HCl 400 MCG/100 ML MLS IVC SCH ×3 (09:49→20:30)
--- NOTE | 2017-08-19 10:22 | Orthopedics Progress Note ---
Date of Encounter: 08/19/17 Time of Encounter: 10:19 - Assessment and Plan (1) Compartment syndrome of right lower extremity Current Visit: Yes Status: Acute Qualifiers: Qualified Code(s): T79.A21A - Traumatic compartment syndrome of right lower extremity, initial encounter Subjective Principal diagnosis: Overdose Interval history: S: Intubated and sedated O: Right lower extremity with VAC in place 275mL out since surgery of sanguinous fluid The Edmund wrap was taken down and there is persistent swelling to the right calf without cellulitis or concern for infection. Dramatic improvement in the capillary refill to the foot which is now very warm and well perfused. A: Postoperative day 2 after 4 compartment fasciotomy of the right leg due to compartment syndrome P: Plan on second look I&D of the right leg on tomorrow to evaluate for muscle function and ability to close the wound In the meantime continue elevation strictly above the level of the heart Objective Vital signs: Vital Signs Temp Pulse Resp BP Pulse Ox 08/19/17 07:45 97.3 F L 08/19/17 07:31 14 98 08/19/17 06:00 104 16 115/76 98 08/19/17 05:00 106 12 124/86 96 08/19/17 04:41 97.3 F L 08/19/17 04:00 103 13 129/73 98 08/19/17 03:24 13 98 08/19/17 03:00 102 13 128/83 98 08/19/17 02:00 103 13 128/79 97 08/19/17 01:57 12 96 08/19/17 01:00 103 13 123/82 97 08/19/17 00:23 97.2 F L 08/19/17 00:00 105 13 120/67 97 08/18/17 23:29 19 98 08/18/17 23:00 107 13 114/66 94 08/18/17 22:00 109 13 122/68 95 08/18/17 21:37 12 97 08/18/17 21:00 110 12 117/75 98 08/18/17 20:02 98.3 F 08/18/17 20:00 110 14 117/68 98 08/18/17 19:48 98 08/18/17 19:15 112 14 118/69 98 08/18/17 17:57 115 14 113/68 98 08/18/17 17:55 115 14 113/68 98 08/18/17 17:00 117 14 107/64 98 08/18/17 16:37 98.3 F 08/18/17 16:26 17 133/81 99 08/18/17 16:00 98.3 F 117 15 125/82 98 08/18/17 15:00 120 14 115/72 97 08/18/17 14:32 15 122/69 97 08/18/17 14:00 120 14 113/67 97 08/18/17 13:00 133 12 125/75 97 08/18/17 12:22 99.6 F 08/18/17 12:00 122 14 106/64 98 08/18/17 11:00 133 17 104/59 98 Intake and Output 08/18/17 08/19/17 08/19/17 23:59 07:59 15:59 Intake Total 580 / 580 100 / 100 Output Total 250 / 250 35 / 35 Balance 330 / 330 65 / 65 Intake: IV Fluids 580 / 580 100 / 100 FentaNYL (PF) 1,000 MCG In 0.9 100 / 100 100 / 100 % Sodium Chloride 80 ML @ 50 MCG/HR 5 mls/hr IVC CONT [facility] Rx #:[id number] Versed 50 MG In 0.9 % Sodium 100 / 100 Chloride 90 ML @ 2 MG/HR 4 mls/ hr IVC [facility] Rx#:[id number] Merrem 500 MG In Water for inj. 10 / 10 (sterile) 10 ML @ 200 mls/hr IVP Q12H [facility] Rx#:[id number] Calcium Gluconate 2,000 MG In 0 120 / 120 .9 % Sodium Chloride 100 ML @ 220 mls/hr IVPB ONCE PRN Rx#: [id number] Vancocin 1,000 MG In Dextrose 5 250 / 250 % 250 ML @ 166.667 mls/hr IVPB ONCE ONE Rx#:[id number] Oral 0 / 0 0 / 0 Output: Rectal Tube 200 / 200 Catheter 0 / 0 Wound Drainage 50 / 50 35 / 35 Right Lower Leg 50 / 50 35 / 35 Other: Weight 97.9 kg Blood Glucose* 99 Patient Weight 08/19/17 23:59 Weight 97.9 kg - Labs CBC & BMP: 08/19/17 03:42 08/18/17 10:35 Labs: Abnormal lab results WBC 25.6 K/mcL (4.3-11.1) H 08/19/17 03:42 RBC 3.63 M/mcL (4.19-5.50) L 08/19/17 03:42 Hgb 10.5 g/dL (12.9-16.9) L D 08/19/17 03:42 Hct 32.3 % (37.5-50.1) L 08/19/17 03:42 Plt Count 73 K/mcL (140-400) L 08/19/17 03:42 Band Neutrophils % 20.0 % (0-4) H 08/18/17 02:50 Neutrophils # 22.6 K/mcL (1.6-8.9) H 08/19/17 03:42 Nucleated RBCs/100 WBC 0.1 /100 WBC (0) H 08/18/17 10:35 Reactive Lymphocytes Present (Not Present) A 08/16/17 03:25 Smudge Cells Present (Not Present) A 08/16/17 03:25 Toxic Granulation Present (Not Present) A 08/18/17 10:35 Platelet Estimate Decreased (Normal) L 08/19/17 03:42 Immature Plt Fraction 15.4 % (1.1-6.1) H 08/17/17 04:00 Anisocytosis 1+ (Not Present) A 08/16/17 03:25 PT 17.3 Seconds (9.4-12.1) H 08/18/17 07:00 Fibrinogen 526 mg/dL (169-393) H 08/18/17 07:00 ABG pH 7.26 pH Units (7.32-7.45) L 08/19/17 05:50 ABG pCO2 63 mmHg (35-45) H 08/19/17 05:50 ABG pO2 115 mmHg (85-104) H 08/19/17 05:50 ABG HCO3 29 mEq/L (21-27) H 08/19/17 05:50 ABG Total CO2 30 mEq/L (20-26) H 08/19/17 05:50 VBG pH 7.26 pH Units (7.32-7.42) L 08/19/17 03:55 Sodium 134 mEq/L (136-145) L 08/18/17 10:35 Potassium 5.6 mEq/L (3.5-5.1) H 08/18/17 10:35 Chloride 96 mEq/L (98-107) L 08/18/17 10:35 Carbon Dioxide 30 mEq/L (23-29) H 08/18/17 10:35 BUN 43 mg/dL (6-20) H 08/18/17 10:35 Creatinine 6.37 mg/dL (0.70-1.30) H 08/18/17 10:35 Est GFR ( Amer) 13 (> 60) L 08/18/17 10:35 Est GFR (Non-Af Amer) 11 (> 60) L 08/18/17 10:35 Glucose 111 mg/dL (70-105) H 08/18/17 10:35 POC Glucose 99 (58-89) H 08/19/17 00:11 Calcium 5.9 mg/dL (8.6-10.3) L* 08/18/17 10:35 Venous Ioniz Calcium 0.62 mmol/L (1.15-1.35) L 08/19/17 03:55 Phosphorus 8.2 mg/dL (2.7-4.5) H 08/17/17 18:30 AST > 3000 Units/L (13-39) H 08/18/17 10:35 ALT > 500 Units/L (7-52) H 08/18/17 10:35 Creatine Kinase > 35263 Units/L (30-223) H 08/18/17 07:00 Troponin I 5.76 ng/mL (< 0.04) H* 08/18/17 10:35 Serum Total Protein 5.0 g/dL (6.4-8.9) L 08/18/17 10:35 Albumin 2.6 g/dL (3.5-5.7) L 08/18/17 10:35 Urine Color Red (Yellow) A 08/15/17 22:14 Urine Clarity Cloudy (Clear) A 08/15/17 22:14 Urine Protein 100 mg/dL (Neg-Trace) H 08/15/17 22:14 Urine Blood Large (Negative) H 08/15/17 22:14 Ur Leukocyte Esterase Small (Negative) H 08/15/17 22:14 Urine Microscopic RBC TNTC per hpf (0-3) H 08/15/17 22:14 Vancomycin Trough 24.7 mcg/mL (10-20) H* 08/16/17 18:50 Salicylates < 5.0 mg/dL (15.0-30.0) L 08/15/17 19:41 Acetaminophen < 1.0 mcg/mL (10-30) L 08/15/17 19:41 Ur Amphetamines Screen Positive ng/mL (Wzdcqa=6449) H 08/15/17 22:14 U Benzodiazepines Scrn Positive ng/mL (Nblqga=053) H 08/15/17 22:14 U Marijuana (THC) Screen Positive ng/mL (Cutoff = 50) H 08/15/17 22:14 - VTE Documentation of Mechanical Device: Intermittent pneumatic compression device Consult Discharge Plan - Plan Referrals: NONE,PCP [Primary Care Provider] -
[2017-08-19 11:02] LABS: BUN/Creatinine Ratio 8 (6-26); Blood Urea Nitrogen 62 mg/dL (6-20); Carbon Dioxide 28 mEq/L (23-29); Chloride 96 mEq/L (98-107); Creatine Kinase > 20000 Units/L (30-223); Glucose 96 mg/dL (70-105); Magnesium 2.1 mg/dL (1.6-2.6); Osmolality,Calculated 295 (280-300); Potassium 5.9 mEq/L (3.5-5.1); Sodium 134 mEq/L (136-145); eGFR For African Americans 10 (> 60); eGFR For Non-African Americans 8 (> 60)
[2017-08-19 11:04] LABS: Calcium 5.3 mg/dL (8.6-10.3)
[2017-08-19] MEDS ORDERED: 0.9 % Sodium Chloride 250 ML IVC PRN (11:41)
[2017-08-19] MEDS ORDERED: *HR* Heparin 10,000 UNIT/10 ML VIAL IV PRN (11:41)
--- NOTE | 2017-08-19 11:42 | Nephrology Progress Note ---
Date of Encounter: 08/19/17 Time of Encounter: 11:25 - Assessment and Plan (1) HALIMA (acute kidney injury) Current Visit: Yes Status: Acute HALIMA/rabdo/hyperkalemia in setting of drug overdose, hypotension. S/P emergent fasciotomy on 08/17. HD yesterday post op. K 5.9. Anuric. HD today, orders given. Recommend consulting ID regarding possible infective endocarditis and least nephrotoxic Atb coverage. Maintain araujo catheter, I&O. Will continue to monitor. Do not replace Calcium unless symptomatic arrythmia, tetany. Calcium sequestered in muscle and will release as muscle heals. Subjective Principal diagnosis: Overdose Interval history: Intubated, sedated. FIO2 .30 p5. S/P RLE emergent fasciotomy on 08/17. Anuric. Objective - Vital Signs Vital signs: Vital Signs Temp Pulse Resp BP Pulse Ox 08/19/17 11:12 14 99 08/19/17 08:30 98 14 123/70 99 08/19/17 07:45 97.3 F L 08/19/17 07:31 14 98 08/19/17 07:30 104 14 123/68 98 08/19/17 06:00 104 16 115/76 98 08/19/17 05:00 106 12 124/86 96 08/19/17 04:41 97.3 F L 08/19/17 04:00 103 13 129/73 98 08/19/17 03:24 13 98 08/19/17 03:00 102 13 128/83 98 08/19/17 02:00 103 13 128/79 97 08/19/17 01:57 12 96 08/19/17 01:00 103 13 123/82 97 08/19/17 00:23 97.2 F L 08/19/17 00:00 105 13 120/67 97 08/18/17 23:29 19 98 08/18/17 23:00 107 13 114/66 94 08/18/17 22:00 109 13 122/68 95 08/18/17 21:37 12 97 08/18/17 21:00 110 12 117/75 98 08/18/17 20:02 98.3 F 08/18/17 20:00 110 14 117/68 98 08/18/17 19:48 98 08/18/17 19:15 112 14 118/69 98 08/18/17 17:57 115 14 113/68 98 08/18/17 17:55 115 14 113/68 98 08/18/17 17:00 117 14 107/64 98 08/18/17 16:37 98.3 F 08/18/17 16:26 17 133/81 99 08/18/17 16:00 98.3 F 117 15 125/82 98 08/18/17 15:00 120 14 115/72 97 08/18/17 14:32 15 122/69 97 08/18/17 14:00 120 14 113/67 97 08/18/17 13:00 133 12 125/75 97 08/18/17 12:22 99.6 F 08/18/17 12:00 122 14 106/64 98 Intake and Output 08/18/17 08/19/17 08/19/17 23:59 07:59 15:59 Intake Total 580 / 580 200 / 200 0 / 0 Output Total 250 / 250 35 / 35 0 / 0 Balance 330 / 330 165 / 165 0 / 0 Intake: IV Fluids 580 / 580 200 / 200 FentaNYL (PF) 1,000 MCG In 0.9 100 / 100 100 / 100 % Sodium Chloride 80 ML @ 50 MCG/HR 5 mls/hr IVC [facility] Rx #:[id number] Versed 50 MG In 0.9 % Sodium 100 / 100 100 / 100 Chloride 90 ML @ 2 MG/HR 4 mls/ hr IVC CONT [facility] Rx#:[id number] Merrem 500 MG In Water for inj. 10 / 10 (sterile) 10 ML @ 200 mls/hr IVP Q12H [facility] Rx#:[id number] Calcium Gluconate 2,000 MG In 0 120 / 120 .9 % Sodium Chloride 100 ML @ 220 mls/hr IVPB ONCE PRN Rx#: [id number] Vancocin 1,000 MG In Dextrose 5 250 / 250 % 250 ML @ 166.667 mls/hr IVPB ONCE ONE Rx#:[id number] Oral 0 / 0 0 / 0 0 / 0 Output: Rectal Tube 200 / 200 Catheter 0 / 0 0 / 0 Wound Drainage 50 / 50 35 / 35 Right Lower Leg 50 / 50 35 / 35 Other: Weight 97.9 kg Blood Glucose* 99 Patient Weight 08/19/17 23:59 Weight 97.9 kg - General Appearance General appearance: Present: well-developed, well-nourished, appears started age EENT: Present: mucous membranes moist Neck: Present: no JVD Additional Comments: harsh Cardiology: Present: regular rate, regular rhythm Additional Comments: mild generalized Gastrointestinal: Present: hypoactive bowel sounds Integumentary: Present: warm and dry - Lab 08/19/17 03:42 08/19/17 03:42 Most recent lab results ABG pH 7.26 pH Units (7.32-7.45) L 08/19/17 05:50 ABG pCO2 63 mmHg (35-45) H 08/19/17 05:50 ABG pO2 115 mmHg (85-104) H 08/19/17 05:50 ABG HCO3 29 mEq/L (21-27) H 08/19/17 05:50 ABG O2 Saturation 98 % (95-98) 08/19/17 05:50 Calcium 5.3 mg/dL (8.6-10.3) L* 08/19/17 03:42 Phosphorus 8.2 mg/dL (2.7-4.5) H 08/17/17 18:30 Magnesium 2.1 mg/dL (1.6-2.6) 08/19/17 03:42 - VTE Documentation of Mechanical Device: Intermittent pneumatic compression device Consult Discharge Plan - Plan Referrals: NONE,PCP [Primary Care Provider] -
[2017-08-19] MEDS ORDERED: 0.9 % Sodium Chloride 2,000 ML ONE (11:48)
--- NOTE | 2017-08-19 18:55 | Anesthesia Evaluation PreOp ---
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 Other Medical History: Denies Any Significant HX Anesthesia History: No Prior Anesthetic Complications, Past Anesthesia (Right Lower extremity Fasciotomy) Alcohol Use: occasionally Drug use: marijuana, methamphetamine Medications and Allergies Unable To Obtain [Unable to Obtain] 08/16/17 [History] 3 Allergy/AdvReac Type Severity Reaction Status Date / Time No Known Allergies Allergy Verified 05/09/16 04:47 - Meds/Allergy Pre-op Review Medications Reviewed: Yes Allergies Reviewed: Yes Beta Blockers on Current Med List: No Anesthesia Results - Labs 08/19/17 03:42 08/19/17 03:42 Echo 08/19/2017 Impressions: LVEF 55-60%. Normal LV chamber size, wall thickness and function. When compared to prior echo, 08/16/2017, LV systolic function has normalized. Left Ventricular Wall Motion: Rest Echo Findings All wall segments showed normal motion. Findings: Study Quality * Technically adequate exam. ECG Findings * Normal sinus rhythm. Right Ventricle * RV is not optimally visualized on this study. Left Ventricle * LVEF 55-60%. * Normal LV chamber size, wall thickness and function. 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 intubated unable to obtain History. Mother Signed consent, but she didn't know any of his medical history. Anesthesia Assess/Plan ASA Score: 3 Modified Arron Scale for Level of Consciousness: Cooperative, oriented, and tranquil Anesthetic Plan: General Autologous Blood: Yes Monitoring Plan: Standard Monitors Recovery Plan: ICU <Lia Schuster - Last Filed: 08/20/17 15:57> Date of Encounter: 08/20/17 Anesthesia Results - Labs 08/20/17 08:10 08/20/17 08:10 Laboratory Results Impressions Head CT 08/15/17 19:47 IMPRESSION: Negative CT brain with no acute intracranial abnormality. D/ / Marcus Dawn MD / Marcus Dawn MD Interpreting Provider: Marcus Dawn MD X-Ray 08/15/17 19:58 IMPRESSION: 1. Endotracheal tube tip is in the expected location, superimposed over the mid trachea. 2. Nasogastric tube tip is in the expected location, superimposed over the gastric antrum. However, the side port is at the level the gastroesophageal junction. For more optimal placement, nasogastric tube should be advanced approximately 3-4 cm to ensure that the side port is inferior to the GE junction. D/ / Elder Sierra MD / Elder Sierra MD Interpreting Provider: Elder Sierra MD Echocardiogram 08/15/17 23:47 Impressions: LVEF 35-40%. Global LV systolic dysfunction. Mild left ventricular diastolic dysfunction. Normal right ventricular structure and function. There is a very small, mobile echodensity attached to the anterior tricuspid leaflet that is not well characterized. Recommend considering CHRISTY for improved image quality if clinically appropriate. Mild tricuspid regurgitation. No pulmonary hypertension. Abnormal findings communicated to ICU team. Left Ventricular Wall Motion: Rest Echo Findings The apex, apical inferior, mid inferior, basal inferior, apical anterior, mid anterior, basal anterior, apical septal, mid inferior septal, basal inferior septal, apical lateral, mid anterior lateral, basal anterior lateral, mid anterior septal, mid inferior lateral, basal anterior septal and basal inferior lateral dotson were hypokinetic. Findings: Study Quality * Technically adequate exam. ECG Findings * Sinus tachycardia. Left Ventricle * LVEF 35-40%. * Normal LV size and wall thickness. * Mild left ventricular diastolic dysfunction. Right Ventricle * Normal right ventricular structure and function. Left Atrium * Normal left atrial size. Right Atrium * Normal right atrial size. Aortic Valve * No aortic regurgitation. * Trileaflet aortic valve. * No aortic stenosis. Mitral Valve * Normal mitral valve structure. * No mitral regurgitation. * No mitral stenosis. Tricuspid Valve * Mild tricuspid regurgitation. * Tricuspid valve demonstrates a very small echodensity attached to the anterior leaflet which is not well characterized. * Estimated RA pressure is 3 mmHg. * Estimated RVSP is 32 mmHg. * No pulmonary hypertension. Pulmonic Valve * Pulmonic valve is not well visualized. * No pulmonic stenosis. * Trace pulmonic regurgitation. Pulmonary Artery * Pulmonary artery not well visualized. Interatrial Septum * No evidence of PFO by color Doppler. Aorta * Normally sized aortic root. Pericardium * There is no pericardial effusion present. Guidance Needle Placement Ultrasound 08/16/17 00:00 IMPRESSION: Ultrasound-guided non tunneled dialysis catheter placement as above. D/ / Andrea Estrada MD / Andrea Estrada MD Interpreting Provider: Andrea Estrada MD Insertion Non-Tunneled Catheter 08/16/17 00:00 IMPRESSION: Ultrasound-guided non tunneled dialysis catheter placement as above. D/ / Andrea Estrada MD / Andrea Estrada MD Interpreting Provider: Andrea Estrada MD Retroperitoneum Ultrasound 08/16/17 10:00 IMPRESSION: 1. Echogenic kidneys, compatible with chronic medical renal disease. 2. No hydronephrosis. 3. Nonvisualization of the bladder. D/ / 08/16/2017 11:15:36 Javier Guillen MD / mj Interpreting Provider: Javier Guillen MD Tibia/Fibula X-Ray 08/17/17 09:57 IMPRESSION: 1. No acute osseous abnormality. 2. No focal soft tissue abnormality. D/ / 08/17/2017 11:34:46 Kirk Ramirez MD / [facility] [place] Interpreting Provider: Kirk Ramirez MD Chest X-Ray 08/18/17 06:40 IMPRESSION: Unchanged support devices and clear lungs. D/ / Yonis Butler MD / Yonis Butler MD Interpreting Provider: Yonis Butler MD Abdomen/Pelvis CT 08/18/17 11:30 IMPRESSION: Lines and tubes appear in adequate position. Peribronchial opacities, left greater than right, which is nonspecific. An inflammatory or infectious process is within the differential. Please consider possibility of aspiration. There is a large amount of liquid stool within the colon. No obvious wall thickening of the colon appreciated. Consider the possibility of underlying colitis. No acute intra-abdominal or intrapelvic abnormality noted on limited noncontrast imaging, solid organs or gallbladder. There is a mild amount of edema along the retroperitoneum, pelvis and within the soft tissues. Please correlate with patient's underlying renal, cardiac and liver function. Increased prominence of low attenuation within the musculature of the visualized lower extremity and pelvis. Consider the possibility of underlying myositis. MRI could be useful to further characterize. The findings were sent to the Radiology Results Communication Center at 1:06 pm on 08/18/2017to be communicated to a licensed caregiver. D/ / 08/18/2017 13:16:04 [facility]: Ivan Tovar MD Chest CT 08/18/17 11:30 IMPRESSION: Lines and tubes appear in adequate position. Peribronchial opacities, left greater than right, which is nonspecific. An inflammatory or infectious process is within the differential. Please consider possibility of aspiration. There is a large amount of liquid stool within the colon. No obvious wall thickening of the colon appreciated. Consider the possibility of underlying colitis. No acute intra-abdominal or intrapelvic abnormality noted on limited noncontrast imaging, solid organs or gallbladder. There is a mild amount of edema along the retroperitoneum, pelvis and within the soft tissues. Please correlate with patient's underlying renal, cardiac and liver function. Increased prominence of low attenuation within the musculature of the visualized lower extremity and pelvis. Consider the possibility of underlying myositis. MRI could be useful to further characterize. The findings were sent to the Radiology Results Communication Center at 1:06 pm on 08/18/2017to be communicated to a licensed caregiver. D/ / 08/18/2017 13:16:04 Ivan Tovar MD / [facility] Interpreting Provider: Ivan Tovar MD Echocardiogram Limited Views 08/19/17 08:55 Impressions: LVEF 55-60%. Normal LV chamber size, wall thickness and function. When compared to prior echo, 08/16/2017, LV systolic function has normalized. Left Ventricular Wall Motion: Rest Echo Findings All wall segments showed normal motion. Findings: Study Quality * Technically adequate exam. ECG Findings * Normal sinus rhythm. Right Ventricle * RV is not optimally visualized on this study. Left Ventricle * LVEF 55-60%. * Normal LV chamber size, wall thickness and function. Anesthesia Exam Vital Signs Temp Pulse Resp BP Pulse Ox 08/20/17 15:42 100.3 F H 08/20/17 15:00 105 16 96/54 97 08/20/17 14:00 107 16 108/54 99 08/20/17 13:27 15 94 08/20/17 13:00 109 15 112/63 96 08/20/17 12:00 99.9 F H 112 15 116/64 98 08/20/17 11:26 99.9 F H 08/20/17 11:02 19 98 08/20/17 11:00 105 14 98/55 97 08/20/17 10:15 14 99 08/20/17 10:00 104 14 102/56 97 08/20/17 09:43 105 15 109/67 100 08/20/17 09:00 104 15 114/60 100 08/20/17 08:52 99.6 F 105 15 113/70 100 08/20/17 07:42 99.6 F 08/20/17 07:34 27 98 08/20/17 07:00 99.6 F 100 27 96/52 98 08/20/17 06:07 14 96/52 98 08/20/17 06:05 100 20 102/65 100 08/20/17 05:00 100 14 93/48 98 08/20/17 04:02 14 93/48 98 08/20/17 04:00 98.2 F 98 14 106/71 98 08/20/17 03:00 96 14 91/53 98 08/20/17 02:00 95 15 93/52 100 08/20/17 01:39 14 95/54 99 08/20/17 01:00 92 14 89/63 100 08/20/17 00:00 92 14 89/63 100 08/19/17 23:06 89 08/19/17 23:00 98.1 F 87 14 87/49 100 08/19/17 22:56 14 87/49 100 08/19/17 22:00 87 14 93/56 99 08/19/17 21:02 89 14 94/58 99 08/19/17 20:00 87 14 96/56 100 08/19/17 19:52 89 08/19/17 19:42 25 92/55 99 08/19/17 19:25 96.6 F L 08/19/17 19:00 89 14 92/55 100 08/19/17 18:00 89 14 89/50 99 08/19/17 17:00 78 14 114/67 99 08/19/17 16:41 14 100 08/19/17 16:30 85 14 119/70 100 08/19/17 16:15 97.6 F 14 118/73 08/19/17 16:05 82/58 Intake and Output 08/19/17 08/20/17 08/20/17 23:59 07:59 15:59 Intake Total 610 / 610 400 / 400 300 / 300 Output Total 3705 / 3705 45 / 45 Balance -3095 / -3095 355 / 355 300 / 300 Intake: IV Fluids 575 / 575 400 / 400 300 / 300 PRECEDEX Premix 400 mcg In 100 100 / 100 200 / 200 100 / 100 ml @ 0.7 MCG/KG/HR 17.133 mls/ hr IVC .[id number] [facility] Rx#: [id number] FentaNYL (PF) 1,000 MCG In 0.9 100 / 100 100 / 100 100 / 100 % Sodium Chloride 80 ML @ 50 MCG/HR 5 mls/hr IVC CONT [facility] Rx #:[id number] Versed 50 MG In 0.9 % Sodium 100 / 100 100 / 100 100 / 100 Chloride 90 ML @ 2 MG/HR 4 mls/ hr IVC CONT [facility] Rx#:[id number] Phenylephrine 20 MG In Dextrose 175 / 175 5% 500 ML @ 40 MCG/MIN 60.24 mls/hr IVC CONT [facility] Rx#: [id number] Zosyn 3.375 GM In 0.9 % Sodium 100 / 100 Chloride 100 ML @ 25 mls/hr IVPB Q12HR [facility] Rx#:[id number] Tube Feeding 25 / 25 Free Water 10 / 10 Output: Urine 0 / 0 Total Dialysis (HD) Output 3600 / 3600 Rectal Tube 20 / 20 Catheter 65 / 65 5 / 5 Wound Drainage 20 / 20 40 / 40 Right Lower Leg 20 / 20 40 / 40 Other: Blood Glucose* 84 84 82 Hemodialysis Net Fluid Removed 3000 (mL) Height: 6'1 Weight: 215# BMI = 28.5 - 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
[2017-08-20] MEDS: Dexmedetomidine HCl 400 MCG/100 ML MLS IVC SCH ×5 (02:30→21:44)
[2017-08-20] MEDS: Lacri-Lube 3.5 GM TUBE BOTH EYES SCH ×5 (03:02→22:26)
[2017-08-20] MEDS: Ipratropium/Albuterol Neb 3 ML IH SCH ×4 (04:02→21:22)
[2017-08-20] MEDS: *HR* Heparin 5,000 UNIT/ML VIAL SQ SCH ×3 (04:20→22:23)
[2017-08-20] MEDS: Phenylephrine 20 MG in D5% in Water 500 ML IVC SCH (04:21)
[2017-08-20] MEDS: FentaNYL (PF) 1,000 MCG in 0.9 % Sodium Chloride 80 ML IVC SCH ×4 (05:01→21:46)
[2017-08-20 05:23] LABS: ABG Base Excess 4 mEq/L (-2 to 3); ABG HCO3 30 mEq/L (21-27); ABG Oxygen Saturation 97 % (95-98); ABG PCO2 54 mmHg (35-45); ABG PH 7.36 pH Units (7.32-7.45); ABG PO2 100 mmHg (85-104); ABG TCO2 32 mEq/L (20-26); Blood Gas Modality ASSIST CONTROL; Blood Gas PEEP 5 cm H2O; Blood Gas Respiration Rate 14; Blood Gas VT 550 cc
--- NOTE | 2017-08-20 08:06 | Pulmonology Progress Note ---
<Ayad Trivedi - Last Filed: 08/20/17 14:05> Date of Encounter: 08/20/17 Time of Encounter: 08:05 Assessment and Plan (1) Respiratory failure Current Visit: Yes Status: Acute Patient has failed SBT yesterday and remains intubated at this time. ABG this morning shows pH 7.37, PCO2 54, PO2 100, HCO3 30 Ventilator settings: 14, 550, 35 Sedated on fentanyl, Precedex and Versed We will hold off SBT today due to return to the operating room for possible closure of his fasciotomy Qualifiers: Chronicity: acute Respiratory failure complication: unspecified whether with hypoxia or hypercapnia Qualified Code(s): J96.00 - Acute respiratory failure, unspecified whether with hypoxia or hypercapnia (2) Sepsis Current Visit: Yes Status: Acute White count down to 18.3 Cultures show no growth to date Continue IV vancomycin renally dosed with Zosyn Lactic acid 0.9 Qualifiers: Sepsis type: sepsis due to unspecified organism Qualified Code(s): A41.9 - Sepsis, unspecified organism (3) Rhabdomyolysis Current Visit: Yes Status: Acute CPK remaining greater than 20,000 Continue with dialysis and electrolyte replacement Qualifiers: Rhabdomyolysis type: non-traumatic Qualified Code(s): M62.82 - Rhabdomyolysis (4) Compartment syndrome of right lower extremity Current Visit: Yes Status: Acute Postoperative day 3 status post fasciotomy of the right lower extremity due to compartment syndrome Orthopedic surgery following Wound VAC having 20cc out overnight Plan to return to the operating room today to evaluate for muscle function and ability to close the fasciotomy Qualifiers: Encounter type: subsequent encounter Qualified Code(s): T79.A21D - Traumatic compartment syndrome of right lower extremity, subsequent encounter (5) Overdose by amphetamine Current Visit: Yes Status: Acute Suspect in large dose due to his cardiac toxicity and systemic effects instructional services specialist consult prior to discharge Qualifiers: Encounter type: initial encounter Injury intent: undetermined intent Qualified Code(s): T43.624A - Poisoning by amphetamines, undetermined, initial encounter (6) Thrombocytopenia Current Visit: Yes Status: Acute There is no evidence of hemorrhage or extravasation We will continue DVT prophylaxis with heparin for now and continue to monitor There is no indication for transfusion of platelets at this time (7) Lactic acidosis Current Visit: Yes Status: Resolved Lactic acid down to 1.2 Rechecking this morning (8) Tachycardia Current Visit: Yes Status: Acute Improving since yesterday with heart rate in the low 100s Likely due to his toxidrome (9) Elevated troponin Current Visit: Yes Status: Acute No obvious ST elevation or depression noted on EKG Echocardiogram demonstrates EF of 35% with global systolic dysfunction Cardiology consulted and agreed that this is likely due to rhabdomyolysis, shock and HALIMA due to the unlikely nature of ischemic cardiomyopathy given his age (10) HALIMA (acute kidney injury) Current Visit: Yes Status: Acute Creatinine up to 8.05 yesterday Morning labs are pending hemodialysis yesterday and removed 3 L Minimal urine output Nephrology following (11) DVT prophylaxis Current Visit: Yes Status: Acute Subcutaneous heparin Subjective Principal diagnosis: Overdose Interval history: Patient is negative for sepsis, amphetamine overdose, her abdomen lysis and compartment syndrome Vision is resting comfortably in the ventilator this morning He is following simple commands No overnight events per nursing Plan for orthopedic surgery to take him to the operating today for fasciotomy closure Objective PUL Vital signs: Last Vital Signs Temp 99.6 F 08/20/17 07:42 Pulse 100 08/20/17 06:05 Resp 27 08/20/17 07:34 BP 96/52 08/20/17 06:07 Pulse Ox 98 08/20/17 07:34 General appearance: no acute distress (Follows commands) Eyes: nonicteric ENT: oropharynx moist Neck: supple Effort: normal Auscultation: bilateral: clear Cardiovascular: irregular rhythm (Tachycardia) Gastrointestinal: normoactive bowel sounds, non-distended Integumentary: normal Extremities: other (Right lower extremities: Dressing intact, no shadowing present with wound VAC in place) Musculoskeletal: other (See above) unable to assess due to mental status Ventilator Settings Ventilator Settings: Ventilator Settings, Last 8 Hours Ventilator Mode A/C Ventilator Mode A/C Ventilator Mode A/C Ventilator Mode A/C Ventilator Mode A/C Ventilator Mode A/C Ventilator Mode A/C Ventilator Mode A/C Ventilator Mode A/C Ventilator Mode A/C Ventilator Mode A/C Ventilator Tidal Volume 550 Setting Ventilator Tidal Volume 550 Setting Ventilator Tidal Volume 550 Setting Ventilator Tidal Volume 550 Setting Ventilator Tidal Volume 550 Setting Ventilator Tidal Volume 550 Setting Ventilator Tidal Volume 550 Setting Ventilator Tidal Volume 550 Setting Ventilator Tidal Volume 550 Setting Ventilator Tidal Volume 550 Setting Ventilator Tidal Volume 550 Setting Ventilator Respiratory Rate 14 Setting Ventilator Respiratory Rate 14 Setting Ventilator Respiratory Rate 14 Setting Ventilator Respiratory Rate 14 Setting Ventilator Respiratory Rate 14 Setting Ventilator Respiratory Rate 14 Setting Ventilator Respiratory Rate 14 Setting Ventilator Respiratory Rate 14 Setting Ventilator Respiratory Rate 14 Setting Ventilator Respiratory Rate 14 Setting Ventilator Respiratory Rate 14 Setting Actual Respiratory Rate 16 Actual Respiratory Rate 14 Actual Respiratory Rate 14 Actual Respiratory Rate 14 Actual Respiratory Rate 14 Actual Respiratory Rate 14 Actual Respiratory Rate 14 Actual Respiratory Rate 14 Actual Respiratory Rate 14 Actual Respiratory Rate 14 Positive End Expiratory 5 Pressure Positive End Expiratory 5 Pressure Positive End Expiratory 5 Pressure Positive End Expiratory 5 Pressure Positive End Expiratory 5 Pressure Positive End Expiratory 5 Pressure Positive End Expiratory 5 Pressure Positive End Expiratory 5 Pressure Positive End Expiratory 5 Pressure Positive End Expiratory 5 Pressure Positive End Expiratory 5 Pressure Peak Inspiratory Airway 20 Pressure Peak Inspiratory Airway 24 Pressure Peak Inspiratory Airway 24 Pressure Peak Inspiratory Airway 24 Pressure Peak Inspiratory Airway 24 Pressure Peak Inspiratory Airway 24 Pressure Peak Inspiratory Airway 24 Pressure Peak Inspiratory Airway 24 Pressure Peak Inspiratory Airway 24 Pressure Peak Inspiratory Airway 24 Pressure Results - Laboratory Findings CBC and BMP: 08/20/17 08:10 08/20/17 08:10 ABG ABG pH 7.36 pH Units (7.32-7.45) 08/20/17 05:20 ABG pCO2 54 mmHg (35-45) H 08/20/17 05:20 ABG pO2 100 mmHg (85-104) 08/20/17 05:20 ABG O2 Saturation 97 % (95-98) 08/20/17 05:20 PT/INR, D-dimer PT 17.3 Seconds (9.4-12.1) H 08/18/17 07:00 Abnormal lab findings: Abnormal lab results WBC 25.6 K/mcL (4.3-11.1) H 08/19/17 03:42 RBC 3.63 M/mcL (4.19-5.50) L 08/19/17 03:42 Hgb 10.5 g/dL (12.9-16.9) L D 08/19/17 03:42 Hct 32.3 % (37.5-50.1) L 08/19/17 03:42 Plt Count 73 K/mcL (140-400) L 08/19/17 03:42 Band Neutrophils % 20.0 % (0-4) H 08/18/17 02:50 Neutrophils # 22.6 K/mcL (1.6-8.9) H 08/19/17 03:42 Nucleated RBCs/100 WBC 0.1 /100 WBC (0) H 08/18/17 10:35 Reactive Lymphocytes Present (Not Present) A 08/16/17 03:25 Smudge Cells Present (Not Present) A 08/16/17 03:25 Toxic Granulation Present (Not Present) A 08/18/17 10:35 Platelet Estimate Decreased (Normal) L 08/19/17 03:42 Immature Plt Fraction 15.4 % (1.1-6.1) H 08/17/17 04:00 Anisocytosis 1+ (Not Present) A 08/16/17 03:25 PT 17.3 Seconds (9.4-12.1) H 08/18/17 07:00 Fibrinogen 526 mg/dL (169-393) H 08/18/17 07:00 ABG pCO2 54 mmHg (35-45) H 08/20/17 05:20 ABG HCO3 30 mEq/L (21-27) H 08/20/17 05:20 ABG Total CO2 32 mEq/L (20-26) H 08/20/17 05:20 ABG Base Excess 4 mEq/L (-2 to 3) H 08/20/17 05:20 VBG pH 7.26 pH Units (7.32-7.42) L 08/19/17 03:55 Sodium 134 mEq/L (136-145) L 08/19/17 03:42 Potassium 5.9 mEq/L (3.5-5.1) H 08/19/17 03:42 Chloride 96 mEq/L (98-107) L 08/19/17 03:42 BUN 62 mg/dL (6-20) H 08/19/17 03:42 Creatinine 8.05 mg/dL (0.70-1.30) H 08/19/17 03:42 Est GFR ( Amer) 10 (> 60) L 08/19/17 03:42 Est GFR (Non-Af Amer) 8 (> 60) L 08/19/17 03:42 Calcium 5.3 mg/dL (8.6-10.3) L* 08/19/17 03:42 Venous Ioniz Calcium 0.62 mmol/L (1.15-1.35) L 08/19/17 03:55 Phosphorus 8.2 mg/dL (2.7-4.5) H 08/17/17 18:30 AST > 3000 Units/L (13-39) H 08/18/17 10:35 ALT > 500 Units/L (7-52) H 08/18/17 10:35 Creatine Kinase > 83490 Units/L (30-223) H 08/19/17 03:42 Troponin I 5.76 ng/mL (< 0.04) H* 08/18/17 10:35 Serum Total Protein 5.0 g/dL (6.4-8.9) L 08/18/17 10:35 Albumin 2.6 g/dL (3.5-5.7) L 08/18/17 10:35 Urine Color Red (Yellow) A 08/15/17 22:14 Urine Clarity Cloudy (Clear) A 08/15/17 22:14 Urine Protein 100 mg/dL (Neg-Trace) H 08/15/17 22:14 Urine Blood Large (Negative) H 08/15/17 22:14 Ur Leukocyte Esterase Small (Negative) H 08/15/17 22:14 Urine Microscopic RBC TNTC per hpf (0-3) H 08/15/17 22:14 Vancomycin Trough 24.7 mcg/mL (10-20) H* 08/16/17 18:50 Salicylates < 5.0 mg/dL (15.0-30.0) L 08/15/17 19:41 Acetaminophen < 1.0 mcg/mL (10-30) L 08/15/17 19:41 Ur Amphetamines Screen Positive ng/mL (Pxozqd=1303) H 08/15/17 22:14 U Benzodiazepines Scrn Positive ng/mL (Qnlgvr=277) H 08/15/17 22:14 U Marijuana (THC) Screen Positive ng/mL (Cutoff = 50) H 08/15/17 22:14 - Clinical Findings Intake & Output: Intake & Output 08/19/17 08/20/17 08/20/17 23:59 07:59 15:59 Intake Total 610 / 610 300 / 300 Output Total 3705 / 3705 Balance -3095 / -3095 275 / 275 - VTE Documentation of Mechanical Device: Intermittent pneumatic compression device Consult Discharge Plan - Plan Referrals: NONE,PCP [Primary Care Provider] - <Noy Simon S - Last Filed: 08/21/17 06:13> Date of Encounter: 08/21/17 Objective PUL Vital signs: Last Vital Signs Temp 101 F H 08/21/17 05:33 Pulse 122 08/21/17 04:00 Resp 14 08/21/17 04:00 BP 120/62 08/21/17 04:00 Pulse Ox 100 08/21/17 04:00 Ventilator Settings Ventilator Settings: Ventilator Settings, Last 8 Hours Ventilator Mode A/C Ventilator Mode A/C Ventilator Mode A/C Ventilator Mode A/C Ventilator Mode A/C Ventilator Mode A/C Ventilator Mode A/C Ventilator Mode A/C Ventilator Mode A/C Ventilator Mode A/C Ventilator Mode A/C Ventilator Mode A/C Ventilator Mode A/C Ventilator Tidal Volume 550 Setting Ventilator Tidal Volume 550 Setting Ventilator Tidal Volume 550 Setting Ventilator Tidal Volume 550 Setting Ventilator Tidal Volume 550 Setting Ventilator Tidal Volume 550 Setting Ventilator Tidal Volume 550 Setting Ventilator Tidal Volume 550 Setting Ventilator Tidal Volume 550 Setting Ventilator Tidal Volume 550 Setting Ventilator Tidal Volume 550 Setting Ventilator Tidal Volume 550 Setting Ventilator Tidal Volume 550 Setting Ventilator Respiratory Rate 14 Setting Ventilator Respiratory Rate 14 Setting Ventilator Respiratory Rate 14 Setting Ventilator Respiratory Rate 14 Setting Ventilator Respiratory Rate 14 Setting Ventilator Respiratory Rate 14 Setting Ventilator Respiratory Rate 14 Setting Ventilator Respiratory Rate 14 Setting Ventilator Respiratory Rate 14 Setting Ventilator Respiratory Rate 14 Setting Ventilator Respiratory Rate 14 Setting Ventilator Respiratory Rate 14 Setting Ventilator Respiratory Rate 14 Setting Actual Respiratory Rate 14 Actual Respiratory Rate 16 Actual Respiratory Rate 14 Actual Respiratory Rate 14 Actual Respiratory Rate 14 Actual Respiratory Rate 14 Actual Respiratory Rate 14 Actual Respiratory Rate 14 Actual Respiratory Rate 14 Actual Respiratory Rate 14 Actual Respiratory Rate 14 Actual Respiratory Rate 14 Positive End Expiratory 5 Pressure Positive End Expiratory 5 Pressure Positive End Expiratory 5 Pressure Positive End Expiratory 5 Pressure Positive End Expiratory 5 Pressure Positive End Expiratory 5 Pressure Positive End Expiratory 5 Pressure Positive End Expiratory 5 Pressure Positive End Expiratory 5 Pressure Positive End Expiratory 5 Pressure Positive End Expiratory 5 Pressure Positive End Expiratory 5 Pressure Positive End Expiratory 5 Pressure Peak Inspiratory Airway 28 Pressure Peak Inspiratory Airway 29 Pressure Peak Inspiratory Airway 29 Pressure Peak Inspiratory Airway 27 Pressure Peak Inspiratory Airway 26 Pressure Peak Inspiratory Airway 26 Pressure Peak Inspiratory Airway 29 Pressure Peak Inspiratory Airway 29 Pressure Peak Inspiratory Airway 28 Pressure Peak Inspiratory Airway 28 Pressure Peak Inspiratory Airway 28 Pressure Peak Inspiratory Airway 28 Pressure Results - Laboratory Findings CBC and BMP: 08/21/17 04:00 08/20/17 08:10 ABG ABG pH 7.33 pH Units (7.32-7.45) 08/21/17 04:48 ABG pCO2 46 mmHg (35-45) H 08/21/17 04:48 ABG pO2 81 mmHg (85-104) L 08/21/17 04:48 ABG O2 Saturation 95 % (95-98) 08/21/17 04:48 PT/INR, D-dimer PT 17.3 Seconds (9.4-12.1) H 08/18/17 07:00 Abnormal lab findings: Abnormal lab results WBC 18.7 K/mcL (4.3-11.1) H 08/21/17 04:00 RBC 3.10 M/mcL (4.19-5.50) L 08/21/17 04:00 Hgb 9.0 g/dL (12.9-16.9) L 08/21/17 04:00 Hct 27.6 % (37.5-50.1) L 08/21/17 04:00 Plt Count 139 K/mcL (140-400) L 08/21/17 04:00 Band Neutrophils % 20.0 % (0-4) H 08/18/17 02:50 Neutrophils # 16.2 K/mcL (1.6-8.9) H 08/21/17 04:00 Nucleated RBCs/100 WBC 0.1 /100 WBC (0) H 08/20/17 08:10 Reactive Lymphocytes Present (Not Present) A 08/16/17 03:25 Smudge Cells Present (Not Present) A 08/16/17 03:25 Toxic Granulation Present (Not Present) A 08/18/17 10:35 Platelet Estimate Decreased (Normal) L 08/19/17 03:42 Immature Plt Fraction 10.5 % (1.1-6.1) H 08/20/17 08:10 Anisocytosis 1+ (Not Present) A 08/16/17 03:25 PT 17.3 Seconds (9.4-12.1) H 08/18/17 07:00 Fibrinogen 526 mg/dL (169-393) H 08/18/17 07:00 ABG pCO2 46 mmHg (35-45) H 08/21/17 04:48 ABG pO2 81 mmHg (85-104) L 08/21/17 04:48 VBG pH 7.26 pH Units (7.32-7.42) L 08/19/17 03:55 Sodium 134 mEq/L (136-145) L 08/20/17 08:10 Chloride 95 mEq/L (98-107) L 08/20/17 08:10 BUN 56 mg/dL (6-20) H 08/20/17 08:10 Creatinine 7.17 mg/dL (0.70-1.30) H 08/20/17 08:10 Est GFR ( Amer) 11 (> 60) L 08/20/17 08:10 Est GFR (Non-Af Amer) 9 (> 60) L 08/20/17 08:10 POC Glucose 100 (58-89) H 08/21/17 03:36 Calcium 5.9 mg/dL (8.6-10.3) L* 08/20/17 08:10 Venous Ioniz Calcium 0.62 mmol/L (1.15-1.35) L 08/19/17 03:55 Phosphorus 8.2 mg/dL (2.7-4.5) H 08/17/17 18:30 AST > 3000 Units/L (13-39) H 08/18/17 10:35 ALT > 500 Units/L (7-52) H 08/18/17 10:35 Creatine Kinase > 92199 Units/L (30-223) H 08/20/17 08:10 Troponin I 5.76 ng/mL (< 0.04) H* 08/18/17 10:35 Serum Total Protein 5.0 g/dL (6.4-8.9) L 08/18/17 10:35 Albumin 2.6 g/dL (3.5-5.7) L 08/18/17 10:35 Urine Color Red (Yellow) A 08/15/17 22:14 Urine Clarity Cloudy (Clear) A 08/15/17 22:14 Urine Protein 100 mg/dL (Neg-Trace) H 08/15/17 22:14 Urine Blood Large (Negative) H 08/15/17 22:14 Ur Leukocyte Esterase Small (Negative) H 08/15/17 22:14 Urine Microscopic RBC TNTC per hpf (0-3) H 08/15/17 22:14 Salicylates < 5.0 mg/dL (15.0-30.0) L 08/15/17 19:41 Acetaminophen < 1.0 mcg/mL (10-30) L 08/15/17 19:41 Ur Amphetamines Screen Positive ng/mL (Abmidp=1089) H 08/15/17 22:14 U Benzodiazepines Scrn Positive ng/mL (Wlvrkk=295) H 08/15/17 22:14 U Marijuana (THC) Screen Positive ng/mL (Cutoff = 50) H 08/15/17 22:14 - Microbiology Findings Microbiology Findings: Microbiology, Last 48 Hours 08/18/17 11:01 Blood Culture - Preliminary Central Venous Catheter No growth. 08/18/17 07:43 Blood Culture - Preliminary Peripheral Venipuncture No growth. - Clinical Findings Intake & Output: Intake & Output 08/20/17 08/20/17 08/21/17 15:59 23:59 07:59 Intake Total 400 / 400 720 / 720 340 / 340 Output Total 725 / 725 Balance 400 / 400 -5 / -5 315 / 315 Weight 87.9 kg - Attending Attestation I saw and evaluated this patient and my medical decision-making was reviewed with the Resident Physician. I agree with the documented findings, disposition and treatment plan as described except to the extent set forth below. We independently had [id number] contact with the patient Patient seen and examined at bedside Labs, radiology, chart personally reviewed. LEAD NETWORK ARCHITECT:Patent is agitated on and off follows commands transitioned to precedex will hold off seroquel or any other antipsychotics for concern of neurolept malignant syndrome , patient is more calmer than yesterday Pulm: Patient has multifocal infiltrates in the imaging concern for aspiration pneumonia to continue broad spectrum antibiotics will start diuresing Cards:Hemodynamically stable , ECHO showed EF normal Cardiology signed off appreciate the recommendations FEN-GI:To continue feeding according to nutrition recs Renal:HALIMA due to Severe Rhabdomyolysis due to RLE compartment syndrome intermittent HD ID: No active source emprically treating against intra abdominal source or pulmonary source his leukocytosis is coming down slowly will plan descalating the antibiotics Heme/Onc:Labs reviewed Endo: Glucose Monitored Integ/MSK: Skin Care per routine ICU Nursing Protocol to prevent ulcers. Lines: All lines examined without evidence of infection : Dispo: Critically ill diffult liberation from the vent because of agitation CODE:Full Code updated Mother about the condition .
--- NOTE | 2017-08-20 08:11 | Nephrology Progress Note ---
Date of Encounter: 08/20/17 Time of Encounter: 08:08 - Assessment and Plan (1) HALIMA (acute kidney injury) Current Visit: Yes Status: Acute Patient has acute kidney injury in the face of rhabdomyolysis. He remains oliguric and dialysis dependent. His last dialysis was yesterday. Today's lab is pending. He remains hypocalcemic because of the rhabdomyolysis. He does not require calcium supplementation unless he becomes symptomatic. We will continue to monitor his renal status he will likely continue to require dialysis at least in the near future. (2) Substance abuse Current Visit: Yes Status: Acute (3) Compartment syndrome of right lower extremity Current Visit: Yes Status: Acute Qualifiers: Encounter type: subsequent encounter Qualified Code(s): T79.A21D - Traumatic compartment syndrome of right lower extremity, subsequent encounter (4) Rhabdomyolysis Current Visit: Yes Status: Acute Qualifiers: Rhabdomyolysis type: non-traumatic Qualified Code(s): M62.82 - Rhabdomyolysis Subjective Principal diagnosis: Overdose Interval history: The patient remains sedated on the ventilator. He is hemodynamically stable. He remains oligo anuric. He did undergo dialysis yesterday. Laboratory studies this morning are pending. Objective - Vital Signs Vital signs: Vital Signs Temp Pulse Resp BP Pulse Ox 08/20/17 07:42 99.6 F 08/20/17 07:34 27 98 08/20/17 06:07 14 96/52 98 08/20/17 06:05 100 20 102/65 100 08/20/17 05:00 100 14 93/48 98 08/20/17 04:02 14 93/48 98 08/20/17 04:00 98.2 F 98 14 106/71 98 08/20/17 03:00 96 14 91/53 98 08/20/17 02:00 95 15 93/52 100 08/20/17 01:39 14 95/54 99 08/20/17 01:00 92 14 89/63 100 08/20/17 00:00 92 14 89/63 100 08/19/17 23:06 89 08/19/17 23:00 98.1 F 87 14 87/49 100 08/19/17 22:56 14 87/49 100 08/19/17 22:00 87 14 93/56 99 08/19/17 21:02 89 14 94/58 99 08/19/17 20:00 87 14 96/56 100 08/19/17 19:52 89 08/19/17 19:42 25 92/55 99 08/19/17 19:25 96.6 F L 08/19/17 19:00 89 14 92/55 100 08/19/17 18:00 89 14 89/50 99 08/19/17 17:00 78 14 114/67 99 08/19/17 16:41 14 100 08/19/17 16:30 85 14 119/70 100 08/19/17 16:15 97.6 F 14 118/73 08/19/17 16:05 82/58 08/19/17 15:50 88/51 08/19/17 15:35 90/56 08/19/17 15:25 85 14 100 08/19/17 15:20 90/54 08/19/17 15:05 95/57 08/19/17 14:50 96/64 08/19/17 14:35 98/59 08/19/17 14:30 84 14 98/59 100 08/19/17 14:20 94/56 08/19/17 14:05 87/45 08/19/17 13:50 91/42 08/19/17 13:35 87/49 08/19/17 13:30 88 14 82/47 99 08/19/17 13:20 90/42 08/19/17 13:05 86/48 08/19/17 13:00 88 08/19/17 12:50 90/47 08/19/17 12:35 92/50 08/19/17 12:30 88 14 88/50 100 08/19/17 12:20 92/52 08/19/17 12:09 97.7 F 08/19/17 12:05 97.7 F 14 100/55 08/19/17 11:30 91 14 95/56 98 08/19/17 11:12 14 99 08/19/17 10:30 93 14 107/69 99 08/19/17 09:30 94 14 126/72 99 08/19/17 09:00 94 08/19/17 08:30 98 14 123/70 99 Intake and Output 08/19/17 08/20/17 08/20/17 23:59 07:59 15:59 Intake Total 610 / 610 300 / 300 Output Total 3705 / 3705 25 / 25 Balance -3095 / -3095 275 / 275 Intake: IV Fluids 575 / 575 300 / 300 PRECEDEX Premix 400 mcg In 100 100 / 100 100 / 100 ml @ 0.7 MCG/KG/HR 17.133 mls/ hr IVC .[id number] [facility] Rx#: [id number] FentaNYL (PF) 1,000 MCG In 0.9 100 / 100 100 / 100 % Sodium Chloride 80 ML @ 50 MCG/HR 5 mls/hr IVC CONT [facility] Rx #:[id number] Versed 50 MG In 0.9 % Sodium 100 / 100 100 / 100 Chloride 90 ML @ 2 MG/HR 4 mls/ hr IVC CONT [facility] Rx#:[id number] Phenylephrine 20 MG In Dextrose 175 / 175 5% 500 ML @ 40 MCG/MIN 60.24 mls/hr IVC CONT [facility] Rx#: [id number] Zosyn 3.375 GM In 0.9 % Sodium 100 / 100 Chloride 100 ML @ 25 mls/hr IVPB Q12HR [facility] Rx#:[id number] Tube Feeding 25 / Free Water Output: Urine 0 / 0 Total Dialysis (HD) Output 3600 / 3600 Rectal Tube 20 / 20 Catheter 65 / 65 5 / 5 Wound Drainage 20 / 20 20 / 20 Right Lower Leg 20 / 20 20 / 20 Other: Blood Glucose* 84 84 Hemodialysis Net Fluid Removed 3000 (mL) - General Appearance Exam: Patient is sedated on the ventilator. He is in no acute distress. Blood pressure is 96/52. Present temporary dialysis catheter in the left internal jugular vein. Lungs coarse breath sounds otherwise clear. Heart regular rate and rhythm. Abdomen is benign. There is no swelling in the left lower extremity. The right lower extremity is wrapped. - Lab 08/19/17 03:42 08/19/17 03:42 Most recent lab results ABG pH 7.36 pH Units (7.32-7.45) 08/20/17 05:20 ABG pCO2 54 mmHg (35-45) H 08/20/17 05:20 ABG pO2 100 mmHg (85-104) 08/20/17 05:20 ABG HCO3 30 mEq/L (21-27) H 08/20/17 05:20 ABG O2 Saturation 97 % (95-98) 08/20/17 05:20 Calcium 5.3 mg/dL (8.6-10.3) L* 08/19/17 03:42 Phosphorus 8.2 mg/dL (2.7-4.5) H 08/17/17 18:30 Magnesium 2.1 mg/dL (1.6-2.6) 08/19/17 03:42 - VTE Documentation of Mechanical Device: Intermittent pneumatic compression device Consult Discharge Plan - Plan Referrals: NONE,PCP [Primary Care Provider] -
[2017-08-20] MEDS: Chlorhexidine Rinse 15 ML MOUTHWASH MM SCH ×2 (08:22→22:26)
[2017-08-20] MEDS: Pantoprazole 40 MG VIAL IVP SCH (08:22)
[2017-08-20 08:27] LABS: Basophils % 0.3 %; Hemoglobin 9.2 g/dL (12.9-16.9); Lymphocytes % 4.6 %
[2017-08-20 08:29] LABS: Basophils # 0.1 K/mcL (0.0-0.2); Eosinophils # 0.1 K/mcL (0.0-0.6); Eosinophils % 0.5 %; Hematocrit 27.9 % (37.5-50.1); Immature Granulocytes % 1.5 % (0-4); Immature Platelets 10.5 % (1.1-6.1); Lymphocytes # 0.8 K/mcL (0.6-4.6); Mean Platelet Volume 11.4 fL (9.4-12.4); Monocytes # 0.9 K/mcL (0.0-1.3); Neutrophils # 16.1 K/mcL (1.6-8.9); Nucleated Red Blood Cells 0.1 /100 WBC (0); Red Blood Count 3.17 M/mcL (4.19-5.50); Red Cell Distribution Width 13.5 % (11.5-14.5); Segmented Neutrophils % 88.1 %
--- NOTE | 2017-08-20 08:37 | Orthopedics Progress Note ---
Date of Encounter: 08/20/17 Time of Encounter: 08:35 - Assessment and Plan (1) Compartment syndrome of right lower extremity Current Visit: Yes Status: Acute Qualifiers: Qualified Code(s): T79.A21A - Traumatic compartment syndrome of right lower extremity, initial encounter Subjective Principal diagnosis: Overdose Interval history: S: Intubated and sedated O: Right lower extremity with VAC in place 350mL out since surgery of sanguinous fluid The Edmund wrap was taken down and there is persistent swelling to the right calf without cellulitis or concern for infection. Dramatic improvement perfusion to the right foot. Toes are pink. Bounding PT palpable pulse. A: Postoperative day 3 after 4 compartment fasciotomy of the right leg due to compartment syndrome P: Plan on second look I&D of the right leg on today to evaluate for muscle function and ability to close the wound In the meantime continue elevation strictly above the level of the heart Objective Vital signs: Vital Signs Temp Pulse Resp BP Pulse Ox 08/20/17 07:42 99.6 F 08/20/17 07:34 27 98 08/20/17 06:07 14 96/52 98 08/20/17 06:05 100 20 102/65 100 08/20/17 05:00 100 14 93/48 98 08/20/17 04:02 14 93/48 98 08/20/17 04:00 98.2 F 98 14 106/71 98 08/20/17 03:00 96 14 91/53 98 08/20/17 02:00 95 15 93/52 100 08/20/17 01:39 14 95/54 99 08/20/17 01:00 92 14 89/63 100 08/20/17 00:00 92 14 89/63 100 08/19/17 23:06 89 08/19/17 23:00 98.1 F 87 14 87/49 100 08/19/17 22:56 14 87/49 100 08/19/17 22:00 87 14 93/56 99 08/19/17 21:02 89 14 94/58 99 08/19/17 20:00 87 14 96/56 100 08/19/17 19:52 89 08/19/17 19:42 25 92/55 99 08/19/17 19:25 96.6 F L 08/19/17 19:00 89 14 92/55 100 08/19/17 18:00 89 14 89/50 99 08/19/17 17:00 78 14 114/67 99 08/19/17 16:41 14 100 08/19/17 16:30 85 14 119/70 100 08/19/17 16:15 97.6 F 14 118/73 08/19/17 16:05 82/58 08/19/17 15:50 88/51 08/19/17 15:35 90/56 08/19/17 15:25 85 14 100 08/19/17 15:20 90/54 08/19/17 15:05 95/57 08/19/17 14:50 96/64 08/19/17 14:35 98/59 08/19/17 14:30 84 14 98/59 100 08/19/17 14:20 94/56 08/19/17 14:05 87/45 08/19/17 13:50 91/42 08/19/17 13:35 87/49 08/19/17 13:30 88 14 82/47 99 08/19/17 13:20 90/42 08/19/17 13:05 86/48 08/19/17 13:00 88 08/19/17 12:50 90/47 08/19/17 12:35 92/50 08/19/17 12:30 88 14 88/50 100 08/19/17 12:20 92/52 08/19/17 12:09 97.7 F 08/19/17 12:05 97.7 F 14 100/55 08/19/17 11:30 91 14 95/56 98 08/19/17 11:12 14 99 08/19/17 10:30 93 14 107/69 99 08/19/17 09:30 94 14 126/72 99 08/19/17 09:00 94 Intake and Output 08/19/17 08/20/17 08/20/17 23:59 07:59 15:59 Intake Total 610 / 610 400 / 400 Output Total 3705 / 3705 Balance -3095 / -3095 375 / 375 Intake: IV Fluids 575 / 575 400 / 400 PRECEDEX Premix 400 mcg In 100 100 / 100 200 / 200 ml @ 0.7 MCG/KG/HR 17.133 mls/ hr IVC .[id number] [facility] Rx#: [id number] FentaNYL (PF) 1,000 MCG In 0.9 100 / 100 100 / 100 % Sodium Chloride 80 ML @ 50 MCG/HR 5 mls/hr IVC CONT [facility] Rx #:[id number] Versed 50 MG In 0.9 % Sodium 100 / 100 100 / 100 Chloride 90 ML @ 2 MG/HR 4 mls/ hr IVC CONT [facility] Rx#:[id number] Phenylephrine 20 MG In Dextrose 175 / 175 5% 500 ML @ 40 MCG/MIN 60.24 mls/hr IVC CONT [facility] Rx#: [id number] Zosyn 3.375 GM In 0.9 % Sodium 100 / 100 Chloride 100 ML @ 25 mls/hr IVPB Q12HR [facility] Rx#:[id number] Tube Feeding 25 Free Water Output: Urine 0 / 0 Total Dialysis (HD) Output 3600 / 3600 Rectal Tube 20 / 20 Catheter 65 / 65 5 / 5 Wound Drainage 20 / 20 20 / 20 Right Lower Leg 20 / 20 20 / 20 Other: Blood Glucose* 84 84 Hemodialysis Net Fluid Removed 3000 (mL) - Labs CBC & BMP: 08/19/17 03:42 08/19/17 03:42 Labs: Abnormal lab results WBC 25.6 K/mcL (4.3-11.1) H 08/19/17 03:42 RBC 3.63 M/mcL (4.19-5.50) L 08/19/17 03:42 Hgb 10.5 g/dL (12.9-16.9) L D 08/19/17 03:42 Hct 32.3 % (37.5-50.1) L 08/19/17 03:42 Plt Count 73 K/mcL (140-400) L 08/19/17 03:42 Band Neutrophils % 20.0 % (0-4) H 08/18/17 02:50 Neutrophils # 22.6 K/mcL (1.6-8.9) H 08/19/17 03:42 Nucleated RBCs/100 WBC 0.1 /100 WBC (0) H 08/18/17 10:35 Reactive Lymphocytes Present (Not Present) A 08/16/17 03:25 Smudge Cells Present (Not Present) A 08/16/17 03:25 Toxic Granulation Present (Not Present) A 08/18/17 10:35 Platelet Estimate Decreased (Normal) L 08/19/17 03:42 Immature Plt Fraction 15.4 % (1.1-6.1) H 08/17/17 04:00 Anisocytosis 1+ (Not Present) A 08/16/17 03:25 PT 17.3 Seconds (9.4-12.1) H 08/18/17 07:00 Fibrinogen 526 mg/dL (169-393) H 08/18/17 07:00 ABG pCO2 54 mmHg (35-45) H 08/20/17 05:20 ABG HCO3 30 mEq/L (21-27) H 08/20/17 05:20 ABG Total CO2 32 mEq/L (20-26) H 08/20/17 05:20 ABG Base Excess 4 mEq/L (-2 to 3) H 08/20/17 05:20 VBG pH 7.26 pH Units (7.32-7.42) L 08/19/17 03:55 Sodium 134 mEq/L (136-145) L 08/19/17 03:42 Potassium 5.9 mEq/L (3.5-5.1) H 08/19/17 03:42 Chloride 96 mEq/L (98-107) L 08/19/17 03:42 BUN 62 mg/dL (6-20) H 08/19/17 03:42 Creatinine 8.05 mg/dL (0.70-1.30) H 08/19/17 03:42 Est GFR ( Amer) 10 (> 60) L 08/19/17 03:42 Est GFR (Non-Af Amer) 8 (> 60) L 08/19/17 03:42 Calcium 5.3 mg/dL (8.6-10.3) L* 08/19/17 03:42 Venous Ioniz Calcium 0.62 mmol/L (1.15-1.35) L 08/19/17 03:55 Phosphorus 8.2 mg/dL (2.7-4.5) H 08/17/17 18:30 AST > 3000 Units/L (13-39) H 08/18/17 10:35 ALT > 500 Units/L (7-52) H 08/18/17 10:35 Creatine Kinase > 94468 Units/L (30-223) H 08/19/17 03:42 Troponin I 5.76 ng/mL (< 0.04) H* 08/18/17 10:35 Serum Total Protein 5.0 g/dL (6.4-8.9) L 08/18/17 10:35 Albumin 2.6 g/dL (3.5-5.7) L 08/18/17 10:35 Urine Color Red (Yellow) A 08/15/17 22:14 Urine Clarity Cloudy (Clear) A 08/15/17 22:14 Urine Protein 100 mg/dL (Neg-Trace) H 08/15/17 22:14 Urine Blood Large (Negative) H 08/15/17 22:14 Ur Leukocyte Esterase Small (Negative) H 08/15/17 22:14 Urine Microscopic RBC TNTC per hpf (0-3) H 08/15/17 22:14 Vancomycin Trough 24.7 mcg/mL (10-20) H* 08/16/17 18:50 Salicylates < 5.0 mg/dL (15.0-30.0) L 08/15/17 19:41 Acetaminophen < 1.0 mcg/mL (10-30) L 08/15/17 19:41 Ur Amphetamines Screen Positive ng/mL (Gykhnj=6398) H 08/15/17 22:14 U Benzodiazepines Scrn Positive ng/mL (Opzlds=816) H 08/15/17 22:14 U Marijuana (THC) Screen Positive ng/mL (Cutoff = 50) H 08/15/17 22:14 - VTE Documentation of Mechanical Device: Intermittent pneumatic compression device Consult Discharge Plan - Plan Referrals: NONE,PCP [Primary Care Provider] -
[2017-08-20 08:43] LABS: Platelet Count 97 K/mcL (140-400)
[2017-08-20 08:49] LABS: Calcium 5.9 mg/dL (8.6-10.3)
[2017-08-20 08:50] LABS: BUN/Creatinine Ratio 8 (6-26); Blood Urea Nitrogen 56 mg/dL (6-20); Carbon Dioxide 28 mEq/L (23-29); Chloride 95 mEq/L (98-107); Glucose 87 mg/dL (70-105); Magnesium 2.2 mg/dL (1.6-2.6); Osmolality,Calculated 293 (280-300); Potassium 5.1 mEq/L (3.5-5.1); Sodium 134 mEq/L (136-145); eGFR For African Americans 11 (> 60); eGFR For Non-African Americans 9 (> 60)
[2017-08-20 10:42] LABS: Creatine Kinase > 20000 Units/L (30-223)
--- NOTE | 2017-08-20 15:21 | Electrocardiograph Report ---
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
--- NOTE | 2017-08-20 17:02 | Electrocardiograph Report ---
[place] [address] Test Date: 2017-08-17 Pat Name: Ramon Jaramillo Department: 109 Room: [facility] Gender: M Thickener Operator: TYREE : 1990 Requested By: Ayad Trivedi Order Number: [id number] Reading MD: Jermain Ventura Measurements Intervals [place] Rate: 130 P: 68 [place]: 136 QRS: 79 QRSD: 86 T: 18 QT: 279 QTc: 356 Interpretive Statements SINUS TACHYCARDIA NONSPECIFIC ST & T-WAVE ABNORMALITY ABNORMAL RHYTHM ECG Electronically Signed On 08-20-2017 17:01:08 EST by Jermain Ventura
--- NOTE | 2017-08-20 17:21 | Electrocardiograph Report ---
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
--- NOTE | 2017-08-20 17:24 | Electrocardiograph Report ---
[address] [place], [place] [address] Test Date: 2017-08-18 Pat Name: Ramon Jaramillo Department: 109 Room: [facility] Gender: M Wire Dropper: [facility] : 1990 Requested By: Ayad Trivedi Order Number: [id number] Reading MD: Jermain Ventura Measurements Intervals [place] Rate: 132 P: -33 ID: 108 QRS: 69 QRSD: 87 T: 41 QT: 276 QTc: 354 Interpretive Statements SINUS TACHYCARDIA NONSPECIFIC T-WAVE ABNORMALITY ABNORMAL RHYTHM ECG Electronically Signed On 08-20-2017 17:23:08 EST by Jermain Ventura
[2017-08-20] MEDS ORDERED: *HR* FentaNYL (PF) 100 MCG/2 ML VIAL ONE (18:16)
[2017-08-20] MEDS ORDERED: *HR* Midazolam HCl 2 MG/2 ML VIAL ONE (18:16)
[2017-08-20] MEDS ORDERED: Propofol 500 MG/50 ML INFUS..BTL ONE (18:16)
--- NOTE | 2017-08-20 21:48 | Orthopedic Operative Note ---
Date of procedure: 08/20/17 Procedure: OPERATIVE REPORT DATE OF PROCEDURE: 08/20/2017 SURGEON: Darwin Joy MD MOP WORKER(S): There were no assistants PREOPERATIVE DIAGNOSIS: Post-fasciotomy of the right leg due to compartment syndrome POSTOPERATIVE DIAGNOSIS: Necrosis of the anterior, lateral, and deep posterior compartments of the right leg PROCEDURE: Right [id number] amputation ANESTHESIA: General anesthesia PREOPERATIVE ANTIBIOTICS: Receiving Zosyn from the ICU ESTIMATED BLOOD LOSS: 150 milliliters TOURNIQUET TIME: 113 minutes at 300 mmHg SPECIMENS: Right leg IMPLANTS: No implants LOCAL INJECTION: No injections PREOPERATIVE NOTE AND INDICATIONS: This patient is a 27 year old male who is admitted to the ICU for what seems to have been a toxic ingestion though the details are not entirely clear. Nevertheless he developed compartment syndrome of the right leg and he was taken emergently to the operating room for 4 compartment fasciotomy. There was concern for viability of the anterior, lateral, and deep posterior compartments. He returns to the operating room today for second look I&D and possible wound closure versus VAC placement. The surgical plan was discussed with the mother. The risks, benefits, alternatives, and potential complications of this procedure were discussed with the patient including injury to veins, arteries, nerves, tendons, ligaments, and bone. Also discussed were the risks of infection, bleeding, pain, blood clots, the possible need for a blood transfusion, the possible need for further procedures, heart attack, stroke, and . Additional risks include the need for further debridements or loss of limb or life. All of this was explained in simple terms, and the mother verbalized understanding and wished to proceed. Consent was given to proceed with surgery. PROCEDURE: The patient was seen in the ICU where the identify and the consent were confirmed. The right leg was marked. Final questions were answered. The patient was brought back to the operating room and placed supine on the operating room table. A huddle was performed with the patient and all vital surgical team members confirming patient identity, the correct procedure, and the correct operative site. The wound VAC was taken down. The right leg was prepped and draped in the usual sterile fashion. A surgical time out was performed immediately preceding the incision with all personnel in the operating room to confirm patient identity, the correct operative site and extremity, correct radiographic studies, availability of appropriate surgical equipment, and agreement on the planned procedure. Without inflating the tourniquet the leg was inspected. There was a small amount of duskiness to the anterior skin of the tibia about midway down. The remainder of the skin appeared to be viable. The lateral incision was evaluated There was necrosis noted to the entire anterior compartment and the entire lateral compartment that was exposed and the incision. The fasciotomy incision was extended to the top of the anterior and lateral compartment proximally and to the bottom of the anterior and lateral compartment distally. There is noted to be complete muscle necrosis of the entire compartments both anteriorly and laterally. The muscle was very dark in color and not contractile with the Bovie. There is no purulence or concern for active infection. Attention was directed medially. The superficial posterior compartment was noted to be well perfused and the muscle was healthy in appearance and had excellent contractility with the Bovie. Inspection of the deep posterior compartment noted significant duskiness and necrotic muscle. iven complete necrosis of the anterior, lateral, and deep posterior compartments it was not felt that limb salvage with only the superficial posterior compartment would yield a significantly functional lower extremity and in addition due to the patient's instability and concern for loss of life with attempted limb salvage the decision was made to perform a [id number] amputation. I did scrub out and had a conversation with the mother discussing this in detail and she did wish to proceed with right [id number] amputation and informed consent was obtained. I re-scrubbed and entered the operating room and marked out my skin flaps. My planned resection was about 10 cm distal to the medial joint line and I did rehana the posterior skin flap to accommodate this. The matching anterior skin flap was made as well. This was slightly proximal to the posterior flap. I did incorporate the fasciotomy wounds and the flaps. The anterior tibia was dissected free of periosteum and the tibia was osteotomized and the fibula was then identified and periosteum elevated and osteotomized about a centimeter above the tibia cut. The leg was then pulled forward and using the amputation knife this was drawn down the posterior aspect of the tibia and the leg was amputated and placed on the back table. Attention was directed to the residual leg. The entire anterior and lateral compartments were dissected out and the entirety of the necrotic muscle was resected sharply off the bone and intramuscular septum. The deep posterior compartment was debrided in total in similar fashion. The posterior tibial artery, peroneal artery, and anterior tibial arteries were identified and ligated with a series of clips and silk ties. The tibial nerve was identified and resected as proximally as possible as well as the deep and superficial peroneal nerves. The gastrocsoleus flap had good contractility with the Bovie. The wound was copiously irrigated and small holes were drilled in the distal tibia and the superficial posterior compartment was sutured with #2 FiberWire stitches to the tibia after 45 degree bevel was cut and filed down. After final irrigation the skin flaps were brought together and shaped for closure and closed with 0 Vicryl, 3-0 Vicryl, and david. A sterile dressing and sugar tong splint was applied. The instrument, sponge, and needle counts were correct after wound closure. POST OPERATIVE PLAN: Weight Bearing: NWB Right lower extremity DVT Prophylaxis: Per hospitalist Wound Care: Dressing changes beginning on POD 2 Pain Control: Per hospitalist Was there an architectural administrative assistant present: No Estimated blood loss (cc): 150
[2017-08-20] MEDS ORDERED: Aminoglycoside Consult 1 EACH MC ONE (23:39)
[2017-08-21] MEDS: Lacri-Lube 3.5 GM TUBE BOTH EYES SCH ×6 (00:06→20:15)
--- NOTE | 2017-08-21 01:30 | Anesthesia Evaluation Post Op ---
Date of Encounter: 08/21/17 Time of Encounter: 01:29 - Vital Signs Vital Signs: Vital Signs/O2 Sat, Most Current Temp Pulse Resp BP Pulse Ox 100.5 F H 121 15 116/68 100 08/21/17 00:00 08/21/17 00:26 08/21/17 01:25 08/21/17 00:00 08/21/17 01:25 - Lungs Lungs: Clear Ascult./Percussion - Airway Airway: Intubated - Cardiovascular Regular Rate - Mental Status Mental Status: Sedated - Pain Pain Scale used: 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 - Nausea Vomiting Nausea Vomiting: Not Present - Hydration Hydration: NPO, Baird catheter - Discharge PostOp Status: Transfer Patient to floor
[2017-08-21] MEDS: FentaNYL (PF) 1,000 MCG in 0.9 % Sodium Chloride 80 ML IVC SCH ×5 (02:46→20:38)
[2017-08-21] MEDS: Ipratropium/Albuterol Neb 3 ML IH SCH ×4 (03:41→21:49)
[2017-08-21 04:09] LABS: Basophils # 0.1 K/mcL (0.0-0.2); Basophils % 0.4 %; Eosinophils # 0.1 K/mcL (0.0-0.6); Eosinophils % 0.3 %; Hematocrit 27.6 % (37.5-50.1); Immature Granulocytes % 2.1 % (0-4); Lymphocytes # 0.8 K/mcL (0.6-4.6); Lymphocytes % 4.3 %; Mean Corpuscular HGB Conc 32.6 g/dL (31.6-35.5); Mean Platelet Volume 10.9 fL (9.4-12.4); Monocytes # 1.2 K/mcL (0.0-1.3); Monocytes % 6.6 %; Neutrophils # 16.2 K/mcL (1.6-8.9); Platelet Count 139 K/mcL (140-400); Red Cell Distribution Width 13.9 % (11.5-14.5); Segmented Neutrophils % 86.3 %
[2017-08-21] MEDS: Dexmedetomidine HCl 400 MCG/100 ML MLS IVC SCH ×5 (04:42→22:02)
[2017-08-21 04:51] LABS: ABG Base Excess -2 mEq/L (-2 to 3); ABG HCO3 24 mEq/L (21-27); ABG Oxygen Saturation 95 % (95-98); ABG PCO2 46 mmHg (35-45); ABG PH 7.33 pH Units (7.32-7.45); ABG PO2 81 mmHg (85-104); ABG TCO2 26 mEq/L (20-26); Blood Gas Modality ASSIST CONTROL; Blood Gas PEEP 5 cm H2O; Blood Gas Respiration Rate 14; Blood Gas VT 550 cc
[2017-08-21 06:30] LABS: Alanine Aminotransferase 76 Units/L (7-52); Albumin 2.4 g/dL (3.5-5.7); Alkaline Phosphatase 69 Units/L (34-104); BUN/Creatinine Ratio 9 (6-26); Bilirubin,Total 0.6 mg/dL (0.3-1.0); Blood Urea Nitrogen 85 mg/dL (6-20); Calcium 5.2 mg/dL (8.6-10.3); Carbon Dioxide 24 mEq/L (23-29); Chloride 97 mEq/L (98-107); Globulin 2.5 g/dL (2.4-3.5); Glucose 104 mg/dL (70-105); Osmolality,Calculated 304 (280-300); Phosphorous 8.3 mg/dL (2.7-4.5); Potassium 6.4 mEq/L (3.5-5.1); Sodium 134 mEq/L (136-145); Total Protein 4.9 g/dL (6.4-8.9); eGFR For African Americans 8 (> 60); eGFR For Non-African Americans 6 (> 60)
--- NOTE | 2017-08-21 06:41 | Pulmonology Progress Note ---
<Ayad Trivedi - Last Filed: 08/21/17 11:28> Date of Encounter: 08/21/17 Time of Encounter: 06:41 Assessment and Plan (1) Respiratory failure Current Visit: Yes Status: Acute ABG this morning shows pH 7.33, PCO2 46 Nelly PO2 81 HCO3 24 Ventilator settings: 14, 550, 30, 5 Sedated on fentanyl, Precedex and Versed Family has requested transfer of care to [facility] or current pending availability Qualifiers: Chronicity: acute Respiratory failure complication: unspecified whether with hypoxia or hypercapnia Qualified Code(s): J96.00 - Acute respiratory failure, unspecified whether with hypoxia or hypercapnia (2) Sepsis Current Visit: Yes Status: Acute White count stable to 18.7 Cultures show no growth to date De-escalating with d/c IV vancomycin. Will continue Zosyn Lactic acid 0.8 Qualifiers: Sepsis type: sepsis due to unspecified organism Qualified Code(s): A41.9 - Sepsis, unspecified organism (3) Rhabdomyolysis Current Visit: Yes Status: Acute CPK remaining greater than 20,000 Continue with dialysis and electrolyte replacement Likely cause of his acute renal failure malignancy other causes ordering RODRIGO and ANCA for now Qualifiers: Rhabdomyolysis type: non-traumatic Qualified Code(s): M62.82 - Rhabdomyolysis (4) Complete below knee amputation of right lower extremity Current Visit: Yes Status: Acute Postoperative day 1 status post below the knee amputation due to multi compartment muscular necrosis after compartment syndrome Dressing changes per orthopedic surgery - changed this morning Febrile last night and is down to 100.3 with some mild tachycardia Incision is clean dry and intact with shashi present. No erythema or drainage Keep right lower extremity elevated Qualifiers: Encounter type: initial encounter Qualified Code(s): S88.111A - Complete traumatic amputation at level between knee and ankle, right lower leg, initial encounter (5) Compartment syndrome of right lower extremity Current Visit: Yes Status: Acute See above Qualifiers: Encounter type: subsequent encounter Qualified Code(s): T79.A21D - Traumatic compartment syndrome of right lower extremity, subsequent encounter (6) Overdose by amphetamine Current Visit: Yes Status: Acute Suspect in large dose due to his cardiac toxicity and systemic effects patient services assistant consult prior to discharge Qualifiers: Encounter type: initial encounter Injury intent: undetermined intent Qualified Code(s): T43.624A - Poisoning by amphetamines, undetermined, initial encounter (7) Thrombocytopenia Current Visit: Yes Status: Acute Improving to 139 There is no evidence of hemorrhage or extravasation We will continue DVT prophylaxis with heparin for now and continue to monitor There is no indication for transfusion of platelets at this time (8) Tachycardia Current Visit: Yes Status: Acute Heart rate sinus tachycardia in the 110s Possible pain response with BKA (9) HALIMA (acute kidney injury) Current Visit: Yes Status: Acute Creatinine up to 9.95, potassium of 6.4 Nephrology following we will plan for hemodialysis today Minimal urine output (10) Lactic acidosis Current Visit: Yes Status: Resolved Lactic acid down to 0.8 (11) Elevated troponin Current Visit: Yes Status: Acute No obvious ST elevation or depression noted on EKG Echocardiogram demonstrates EF of 35% with global systolic dysfunction Cardiology consulted and agreed that this is likely due to rhabdomyolysis, shock and HALIMA due to the unlikely nature of ischemic cardiomyopathy given his age (12) DVT prophylaxis Current Visit: Yes Status: Acute Subcutaneous heparin Subjective Principal diagnosis: Overdose Interval history: Patient is negative for sepsis, amphetamine overdose, her abdomen lysis and compartment syndrome Vision is resting comfortably in the ventilator this morning He is following simple commands No overnight events per nursing Plan for orthopedic surgery to take him to the operating today for fasciotomy closure Objective PUL Vital signs: Last Vital Signs Temp 101 F H 08/21/17 05:33 Pulse 118 08/21/17 06:00 Resp 15 08/21/17 06:12 BP 107/55 08/21/17 06:00 Pulse Ox 100 08/21/17 06:12 General appearance: no acute distress, other (Intubated on sedation) Eyes: nonicteric ENT: oropharynx moist Effort: normal Auscultation: bilateral: clear Cardiovascular: irregular rhythm (Tachycardia) Gastrointestinal: normoactive bowel sounds, non-distended Integumentary: other (Below the knee" dressing was removed and changed. Of note , incision was clean dry and intact. Shashi present. No erythema or drainage. ) Extremities: other Musculoskeletal: other (See above) unable to assess due to mental status Ventilator Settings Ventilator Settings: Ventilator Settings, Last 8 Hours Ventilator Mode A/C Ventilator Mode A/C Ventilator Mode A/C Ventilator Mode A/C Ventilator Mode A/C Ventilator Mode A/C Ventilator Mode A/C Ventilator Mode A/C Ventilator Mode A/C Ventilator Mode A/C Ventilator Mode A/C Ventilator Mode A/C Ventilator Mode A/C Ventilator Mode A/C Ventilator Tidal Volume 550 Setting Ventilator Tidal Volume 550 Setting Ventilator Tidal Volume 550 Setting Ventilator Tidal Volume 550 Setting Ventilator Tidal Volume 550 Setting Ventilator Tidal Volume 550 Setting Ventilator Tidal Volume 550 Setting Ventilator Tidal Volume 550 Setting Ventilator Tidal Volume 550 Setting Ventilator Tidal Volume 550 Setting Ventilator Tidal Volume 550 Setting Ventilator Tidal Volume 550 Setting Ventilator Tidal Volume 550 Setting Ventilator Tidal Volume 550 Setting Ventilator Respiratory Rate 14 Setting Ventilator Respiratory Rate 14 Setting Ventilator Respiratory Rate 14 Setting Ventilator Respiratory Rate 14 Setting Ventilator Respiratory Rate 14 Setting Ventilator Respiratory Rate 14 Setting Ventilator Respiratory Rate 14 Setting Ventilator Respiratory Rate 14 Setting Ventilator Respiratory Rate 14 Setting Ventilator Respiratory Rate 14 Setting Ventilator Respiratory Rate 14 Setting Ventilator Respiratory Rate 14 Setting Ventilator Respiratory Rate 14 Setting Ventilator Respiratory Rate 14 Setting Actual Respiratory Rate 15 Actual Respiratory Rate 14 Actual Respiratory Rate 14 Actual Respiratory Rate 14 Actual Respiratory Rate 16 Actual Respiratory Rate 14 Actual Respiratory Rate 14 Actual Respiratory Rate 14 Actual Respiratory Rate 14 Actual Respiratory Rate 14 Actual Respiratory Rate 14 Actual Respiratory Rate 14 Actual Respiratory Rate 14 Positive End Expiratory 5 Pressure Positive End Expiratory 5 Pressure Positive End Expiratory 5 Pressure Positive End Expiratory 5 Pressure Positive End Expiratory 5 Pressure Positive End Expiratory 5 Pressure Positive End Expiratory 5 Pressure Positive End Expiratory 5 Pressure Positive End Expiratory 5 Pressure Positive End Expiratory 5 Pressure Positive End Expiratory 5 Pressure Positive End Expiratory 5 Pressure Positive End Expiratory 5 Pressure Positive End Expiratory 5 Pressure Peak Inspiratory Airway 27 Pressure Peak Inspiratory Airway 28 Pressure Peak Inspiratory Airway 29 Pressure Peak Inspiratory Airway 29 Pressure Peak Inspiratory Airway 27 Pressure Peak Inspiratory Airway 26 Pressure Peak Inspiratory Airway 26 Pressure Peak Inspiratory Airway 29 Pressure Peak Inspiratory Airway 29 Pressure Peak Inspiratory Airway 28 Pressure Peak Inspiratory Airway 28 Pressure Results - Laboratory Findings CBC and BMP: 08/21/17 04:00 08/21/17 05:28 ABG ABG pH 7.33 pH Units (7.32-7.45) 08/21/17 04:48 ABG pCO2 46 mmHg (35-45) H 08/21/17 04:48 ABG pO2 81 mmHg (85-104) L 08/21/17 04:48 ABG O2 Saturation 95 % (95-98) 08/21/17 04:48 PT/INR, D-dimer PT 17.3 Seconds (9.4-12.1) H 08/18/17 07:00 Abnormal lab findings: Abnormal lab results WBC 18.7 K/mcL (4.3-11.1) H 08/21/17 04:00 RBC 3.10 M/mcL (4.19-5.50) L 08/21/17 04:00 Hgb 9.0 g/dL (12.9-16.9) L 08/21/17 04:00 Hct 27.6 % (37.5-50.1) L 08/21/17 04:00 Plt Count 139 K/mcL (140-400) L 08/21/17 04:00 Band Neutrophils % 20.0 % (0-4) H 08/18/17 02:50 Neutrophils # 16.2 K/mcL (1.6-8.9) H 08/21/17 04:00 Nucleated RBCs/100 WBC 0.1 /100 WBC (0) H 08/20/17 08:10 Reactive Lymphocytes Present (Not Present) A 08/16/17 03:25 Smudge Cells Present (Not Present) A 08/16/17 03:25 Toxic Granulation Present (Not Present) A 08/18/17 10:35 Platelet Estimate Decreased (Normal) L 08/19/17 03:42 Immature Plt Fraction 10.5 % (1.1-6.1) H 08/20/17 08:10 Anisocytosis 1+ (Not Present) A 08/16/17 03:25 PT 17.3 Seconds (9.4-12.1) H 08/18/17 07:00 Fibrinogen 526 mg/dL (169-393) H 08/18/17 07:00 ABG pCO2 46 mmHg (35-45) H 08/21/17 04:48 ABG pO2 81 mmHg (85-104) L 08/21/17 04:48 VBG pH 7.26 pH Units (7.32-7.42) L 08/19/17 03:55 Sodium 134 mEq/L (136-145) L 08/21/17 05:28 Potassium 6.4 mEq/L (3.5-5.1) H D 08/21/17 05:28 Chloride 97 mEq/L (98-107) L 08/21/17 05:28 BUN 85 mg/dL (6-20) H 08/21/17 05:28 Creatinine 9.95 mg/dL (0.70-1.30) H 08/21/17 05:28 Est GFR ( Amer) 8 (> 60) L 08/21/17 05:28 Est GFR (Non-Af Amer) 6 (> 60) L 08/21/17 05:28 POC Glucose 100 (58-89) H 08/21/17 03:36 Calculated Osmolality 304 (280-300) H 08/21/17 05:28 Calcium 5.2 mg/dL (8.6-10.3) L* 08/21/17 05:28 Venous Ioniz Calcium 0.62 mmol/L (1.15-1.35) L 08/19/17 03:55 Phosphorus 8.3 mg/dL (2.7-4.5) H 08/21/17 05:28 AST > 3000 Units/L (13-39) H 08/18/17 10:35 ALT 76 Units/L (7-52) H 08/21/17 05:28 Creatine Kinase > 02287 Units/L (30-223) H 08/20/17 08:10 Troponin I 5.76 ng/mL (< 0.04) H* 08/18/17 10:35 Serum Total Protein 4.9 g/dL (6.4-8.9) L 08/21/17 05:28 Albumin 2.4 g/dL (3.5-5.7) L 08/21/17 05:28 Albumin/Globulin Ratio 1.0 (1.1-2.2) L 08/21/17 05:28 Urine Color Red (Yellow) A 08/15/17 22:14 Urine Clarity Cloudy (Clear) A 08/15/17 22:14 Urine Protein 100 mg/dL (Neg-Trace) H 08/15/17 22:14 Urine Blood Large (Negative) H 08/15/17 22:14 Ur Leukocyte Esterase Small (Negative) H 08/15/17 22:14 Urine Microscopic RBC TNTC per hpf (0-3) H 08/15/17 22:14 Salicylates < 5.0 mg/dL (15.0-30.0) L 08/15/17 19:41 Acetaminophen < 1.0 mcg/mL (10-30) L 08/15/17 19:41 Ur Amphetamines Screen Positive ng/mL (Jwefrk=7265) H 08/15/17 22:14 U Benzodiazepines Scrn Positive ng/mL (Zxfqkx=442) H 08/15/17 22:14 U Marijuana (THC) Screen Positive ng/mL (Cutoff = 50) H 08/15/17 22:14 - Microbiology Findings Microbiology Findings: Microbiology, Last 48 Hours 08/18/17 11:01 Blood Culture - Preliminary Central Venous Catheter No growth. 08/18/17 07:43 Blood Culture - Preliminary Peripheral Venipuncture No growth. - Clinical Findings Intake & Output: Intake & Output 08/20/17 08/20/17 08/21/17 15:59 23:59 07:59 Intake Total 400 / 400 720 / 720 340 / 340 Output Total 725 / 725 Balance 400 / 400 -5 / -5 315 / 315 Weight 87.9 kg - VTE Documentation of Mechanical Device: Intermittent pneumatic compression device Consult Discharge Plan - Plan Referrals: NONE,PCP [Primary Care Provider] - <Noy Simon - Last Filed: 08/21/17 23:05> Date of Encounter: 08/21/17 Objective PUL Vital signs: Last Vital Signs Temp 100.9 F H 08/21/17 20:55 Pulse 98 08/21/17 21:00 Resp 15 08/21/17 21:50 BP 86/52 08/21/17 21:00 Pulse Ox 100 08/21/17 21:50 Ventilator Settings Ventilator Settings: Ventilator Settings, Last 8 Hours Ventilator Mode A/C Ventilator Mode A/C Ventilator Mode A/C Ventilator Mode A/C Ventilator Mode A/C Ventilator Mode A/C Ventilator Mode A/C Ventilator Mode A/C Ventilator Mode A/C Ventilator Mode A/C Ventilator Mode A/C Ventilator Tidal Volume 550 Setting Ventilator Tidal Volume 550 Setting Ventilator Tidal Volume 550 Setting Ventilator Tidal Volume 550 Setting Ventilator Tidal Volume 550 Setting Ventilator Tidal Volume 550 Setting Ventilator Tidal Volume 550 Setting Ventilator Tidal Volume 550 Setting Ventilator Tidal Volume 550 Setting Ventilator Tidal Volume 550 Setting Ventilator Tidal Volume 550 Setting Ventilator Respiratory Rate 14 Setting Ventilator Respiratory Rate 14 Setting Ventilator Respiratory Rate 14 Setting Ventilator Respiratory Rate 14 Setting Ventilator Respiratory Rate 14 Setting Ventilator Respiratory Rate 14 Setting Ventilator Respiratory Rate 14 Setting Ventilator Respiratory Rate 14 Setting Ventilator Respiratory Rate 14 Setting Ventilator Respiratory Rate 14 Setting Ventilator Respiratory Rate 14 Setting Actual Respiratory Rate 14 Actual Respiratory Rate 15 Actual Respiratory Rate 17 Actual Respiratory Rate 17 Actual Respiratory Rate 15 Actual Respiratory Rate 15 Actual Respiratory Rate 15 Actual Respiratory Rate 15 Positive End Expiratory 5 Pressure Positive End Expiratory 5 Pressure Positive End Expiratory 5 Pressure Positive End Expiratory 5 Pressure Positive End Expiratory 5 Pressure Positive End Expiratory 5 Pressure Positive End Expiratory 5 Pressure Positive End Expiratory 5 Pressure Positive End Expiratory 5 Pressure Positive End Expiratory 5 Pressure Positive End Expiratory 5 Pressure Peak Inspiratory Airway 28 Pressure Peak Inspiratory Airway 28 Pressure Peak Inspiratory Airway 26 Pressure Peak Inspiratory Airway 26 Pressure Peak Inspiratory Airway 21 Pressure Peak Inspiratory Airway 21 Pressure Peak Inspiratory Airway 21 Pressure Peak Inspiratory Airway 21 Pressure Results - Laboratory Findings CBC and BMP: 08/21/17 04:00 08/21/17 05:28 ABG ABG pH 7.33 pH Units (7.32-7.45) 08/21/17 04:48 ABG pCO2 46 mmHg (35-45) H 08/21/17 04:48 ABG pO2 81 mmHg (85-104) L 08/21/17 04:48 ABG O2 Saturation 95 % (95-98) 08/21/17 04:48 PT/INR, D-dimer PT 17.3 Seconds (9.4-12.1) H 08/18/17 07:00 Abnormal lab findings: Abnormal lab results WBC 18.7 K/mcL (4.3-11.1) H 08/21/17 04:00 RBC 3.10 M/mcL (4.19-5.50) L 08/21/17 04:00 Hgb 9.0 g/dL (12.9-16.9) L 08/21/17 04:00 Hct 27.6 % (37.5-50.1) L 08/21/17 04:00 Plt Count 139 K/mcL (140-400) L 08/21/17 04:00 Band Neutrophils % 20.0 % (0-4) H 08/18/17 02:50 Neutrophils # 16.2 K/mcL (1.6-8.9) H 08/21/17 04:00 Nucleated RBCs/100 WBC 0.1 /100 WBC (0) H 08/20/17 08:10 Reactive Lymphocytes Present (Not Present) A 08/16/17 03:25 Smudge Cells Present (Not Present) A 08/16/17 03:25 Toxic Granulation Present (Not Present) A 08/18/17 10:35 Platelet Estimate Decreased (Normal) L 08/19/17 03:42 Immature Plt Fraction 10.5 % (1.1-6.1) H 08/20/17 08:10 Anisocytosis 1+ (Not Present) A 08/16/17 03:25 PT 17.3 Seconds (9.4-12.1) H 08/18/17 07:00 Fibrinogen 526 mg/dL (169-393) H 08/18/17 07:00 ABG pCO2 46 mmHg (35-45) H 08/21/17 04:48 ABG pO2 81 mmHg (85-104) L 08/21/17 04:48 VBG pH 7.26 pH Units (7.32-7.42) L 08/19/17 03:55 Sodium 134 mEq/L (136-145) L 08/21/17 05:28 Potassium 6.4 mEq/L (3.5-5.1) H D 08/21/17 05:28 Chloride 97 mEq/L (98-107) L 08/21/17 05:28 BUN 85 mg/dL (6-20) H 08/21/17 05:28 Creatinine 9.95 mg/dL (0.70-1.30) H 08/21/17 05:28 Est GFR ( Amer) 8 (> 60) L 08/21/17 05:28 Est GFR (Non-Af Amer) 6 (> 60) L 08/21/17 05:28 POC Glucose 120 (58-89) H 08/21/17 20:00 Calculated Osmolality 304 (280-300) H 08/21/17 05:28 Calcium 5.2 mg/dL (8.6-10.3) L* 08/21/17 05:28 Venous Ioniz Calcium 0.62 mmol/L (1.15-1.35) L 08/19/17 03:55 Phosphorus 8.3 mg/dL (2.7-4.5) H 08/21/17 05:28 AST 1460 Units/L (13-39) H 08/21/17 05:28 ALT 76 Units/L (7-52) H 08/21/17 05:28 Creatine Kinase > 60714 Units/L (30-223) H 08/21/17 05:28 Troponin I 5.76 ng/mL (< 0.04) H* 08/18/17 10:35 Serum Total Protein 4.9 g/dL (6.4-8.9) L 08/21/17 05:28 Albumin 2.4 g/dL (3.5-5.7) L 08/21/17 05:28 Albumin/Globulin Ratio 1.0 (1.1-2.2) L 08/21/17 05:28 Urine Color Red (Yellow) A 08/15/17 22:14 Urine Clarity Cloudy (Clear) A 08/15/17 22:14 Urine Protein 100 mg/dL (Neg-Trace) H 08/15/17 22:14 Urine Blood Large (Negative) H 08/15/17 22:14 Ur Leukocyte Esterase Small (Negative) H 08/15/17 22:14 Urine Microscopic RBC TNTC per hpf (0-3) H 08/15/17 22:14 Salicylates < 5.0 mg/dL (15.0-30.0) L 08/15/17 19:41 Acetaminophen < 1.0 mcg/mL (10-30) L 08/15/17 19:41 Ur Amphetamines Screen Positive ng/mL (Nsqsuo=0761) H 08/15/17 22:14 U Benzodiazepines Scrn Positive ng/mL (Pfgmdv=803) H 08/15/17 22:14 U Marijuana (THC) Screen Positive ng/mL (Cutoff = 50) H 08/15/17 22:14 - Microbiology Findings Microbiology Findings: Microbiology, Last 48 Hours 08/18/17 11:01 Blood Culture - Preliminary Central Venous Catheter No growth. 08/18/17 07:43 Blood Culture - Preliminary Peripheral Venipuncture No growth. - Clinical Findings Intake & Output: Intake & Output 08/21/17 08/21/17 08/21/17 07:59 15:59 23:59 Intake Total 500 / 500 900 / 900 1309 / 1309 Output Total 0 / 0 2931 / 2931 Balance 475 / 475 900 / 900 -1622 / -1622 Weight 87.9 kg - Attending Attestation I saw and evaluated this patient and my medical decision-making was reviewed with the Resident Physician. I agree with the documented findings, disposition and treatment plan as described except to the extent set forth below. We independently had [id number] contact with the patient Patient seen and examined at bedside Labs, radiology, chart personally reviewed. [employer]:Patent is agitated on and off follows commands is calmer today Pulm: Patient has multifocal infiltrates in the imaging concern for aspiration pneumonia to continue broad spectrum antibiotics diuresing with dialysis Cards:Hemodynamically stable , ECHO showed EF normal Cardiology signed off appreciate the recommendations . CHRISTY showed no evidence of vegetations FEN-GI:To continue feeding according to nutrition recs Renal:HALIMA due to Severe Rhabdomyolysis due to RLE compartment syndrome intermittent HD ID: No active source emprically treating against intra abdominal source or pulmonary source his leukocytosis is coming down slowly will plan descalating the antibiotics Heme/Onc:Labs reviewed Endo: Glucose Monitored Integ/MSK: Skin Care per routine ICU Nursing Protocol to prevent ulcers. Patient had Right Leg BKA as the muscle gets slowly necrosed Lines: All lines examined without evidence of infection : Dispo: Critically ill diffult liberation from the vent because of agitation CODE:Full Code updated Mother about the condition . Family wanted to shift him to [facility]
[2017-08-21] MEDS ORDERED: Calcium Gluconate 2,000 MG in D5% in Water 100 ML IVPB ONE (06:51)
[2017-08-21] MEDS ORDERED: *HR* Dextrose 50 % in Water (Syg) 50 ML SYRINGE IVP ONE (07:03)
[2017-08-21] MEDS ORDERED: Insulin Human Regular 10 UNIT in 0.9 % Sodium Chloride 10 ML IV ONE (07:03)
[2017-08-21] MEDS: *HR* Heparin 5,000 UNIT/ML VIAL SQ SCH ×3 (07:14→20:24)
[2017-08-21 07:19] LABS: Aspartate Amino Transferase 1460 Units/L (13-39); Creatine Kinase > 20000 Units/L (30-223)
--- NOTE | 2017-08-21 07:44 | Orthopedics Progress Note ---
Date of Encounter: 08/21/17 Time of Encounter: 07:41 - Assessment and Plan (1) Compartment syndrome of right lower extremity Current Visit: Yes Status: Acute Qualifiers: Qualified Code(s): T79.A21A - Traumatic compartment syndrome of right lower extremity, initial encounter Subjective Principal diagnosis: Overdose Interval history: S: Intubated and sedated O: Febrile last night; tachycardia Vitals are stable, off pressors Right lower extremity dressings changed No drainage from the wound, residual leg is warm and well perfused A: Postoperative day 1 after right [id number] amputation due to multicompartment muscular necrosis after compartment syndrome P: Supportive care per the primary team at this point. We will do daily dressing changes. Elevation the right residual lower extremity. Objective Vital signs: Vital Signs Temp Pulse Resp BP Pulse Ox 08/21/17 07:00 15 100 08/21/17 06:12 15 100 08/21/17 06:00 118 14 107/55 100 08/21/17 05:33 101 F H 08/21/17 05:00 121 14 112/54 100 08/21/17 04:00 122 14 120/62 100 08/21/17 03:41 15 100 08/21/17 03:33 102.5 F H 08/21/17 03:00 124 14 119/64 100 08/21/17 02:00 126 14 127/65 100 08/21/17 01:25 15 100 08/21/17 01:00 123 14 103/68 99 08/21/17 00:26 121 08/21/17 00:00 100.5 F H 121 14 116/68 98 08/20/17 23:30 118 14 113/63 99 08/20/17 23:28 14 120/65 99 08/20/17 23:00 117 14 120/65 99 08/20/17 22:30 112 14 129/76 100 08/20/17 22:15 113 14 125/72 98 08/20/17 22:00 113 14 125/71 99 08/20/17 21:45 112 14 106/54 98 08/20/17 21:34 99.5 F 108 14 87/41 100 08/20/17 18:00 103 16 107/59 99 08/20/17 17:16 17 99 08/20/17 17:00 105 15 102/55 99 08/20/17 16:00 100.3 F H 107 15 111/60 78 08/20/17 15:42 100.3 F H 08/20/17 15:00 105 16 96/54 97 08/20/17 14:00 107 16 108/54 99 08/20/17 13:27 15 94 08/20/17 13:00 109 15 112/63 96 08/20/17 12:00 99.9 F H 112 15 116/64 98 08/20/17 11:26 99.9 F H 08/20/17 11:02 19 98 08/20/17 11:00 105 14 98/55 97 08/20/17 10:15 14 99 08/20/17 10:00 104 14 102/56 97 08/20/17 09:43 105 15 109/67 100 08/20/17 09:00 104 15 114/60 100 08/20/17 08:52 99.6 F 105 15 113/70 100 08/20/17 07:42 99.6 F Intake and Output 08/20/17 08/20/17 08/21/17 15:59 23:59 07:59 Intake Total 400 / 400 720 / 720 340 / 340 Output Total 725 / 725 25 / 25 Balance 400 / 400 -5 / -5 315 / 315 Intake: IV Fluids 400 / 400 720 / 720 340 / 340 PRECEDEX Premix 400 mcg In 100 100 / 100 200 / 200 200 / 200 ml @ 0.7 MCG/KG/HR 17.133 mls/ hr IVC .[id number] YAEL Rx#: [id number] FentaNYL (PF) 1,000 MCG In 0.9 100 / 100 200 / 200 100 / 100 % Sodium Chloride 80 ML @ 50 MCG/HR 5 mls/hr IVC CONT YAEL Rx #:[id number] Versed 50 MG In 0.9 % Sodium 100 / 100 100 / 100 40 / 40 Chloride 90 ML @ 2 MG/HR 4 mls/ hr IVC CONT YAEL Rx#:[id number] Phenylephrine 20 MG In Dextrose 120 / 120 5% 500 ML @ 40 MCG/MIN 60.24 mls/hr IVC CONT YAEL Rx#: [id number] Zosyn 3.375 GM In 0.9 % Sodium 100 / 100 100 / 100 Chloride 100 ML @ 25 mls/hr IVPB Q12HR YAEL Rx#:[id number] Oral 0 / 0 Output: Estimated Blood Loss 150 / 150 Rectal Tube 0 / 0 0 / 0 Catheter 0 / 0 25 / 25 Gastric Drainage 475 / 475 0 / 0 Wound Drainage 100 / 100 Right Lower Leg 100 / 100 Other: Weight 87.9 kg Blood Glucose* 82 82 100 Patient Weight 08/21/17 23:59 Weight 87.9 kg - Labs CBC & BMP: 08/21/17 04:00 08/21/17 05:28 Labs: Abnormal lab results WBC 18.7 K/mcL (4.3-11.1) H 08/21/17 04:00 RBC 3.10 M/mcL (4.19-5.50) L 08/21/17 04:00 Hgb 9.0 g/dL (12.9-16.9) L 08/21/17 04:00 Hct 27.6 % (37.5-50.1) L 08/21/17 04:00 Plt Count 139 K/mcL (140-400) L 08/21/17 04:00 Band Neutrophils % 20.0 % (0-4) H 08/18/17 02:50 Neutrophils # 16.2 K/mcL (1.6-8.9) H 08/21/17 04:00 Nucleated RBCs/100 WBC 0.1 /100 WBC (0) H 08/20/17 08:10 Reactive Lymphocytes Present (Not Present) A 08/16/17 03:25 Smudge Cells Present (Not Present) A 08/16/17 03:25 Toxic Granulation Present (Not Present) A 08/18/17 10:35 Platelet Estimate Decreased (Normal) L 08/19/17 03:42 Immature Plt Fraction 10.5 % (1.1-6.1) H 08/20/17 08:10 Anisocytosis 1+ (Not Present) A 08/16/17 03:25 PT 17.3 Seconds (9.4-12.1) H 08/18/17 07:00 Fibrinogen 526 mg/dL (169-393) H 08/18/17 07:00 ABG pCO2 46 mmHg (35-45) H 08/21/17 04:48 ABG pO2 81 mmHg (85-104) L 08/21/17 04:48 VBG pH 7.26 pH Units (7.32-7.42) L 08/19/17 03:55 Sodium 134 mEq/L (136-145) L 08/21/17 05:28 Potassium 6.4 mEq/L (3.5-5.1) H D 08/21/17 05:28 Chloride 97 mEq/L (98-107) L 08/21/17 05:28 BUN 85 mg/dL (6-20) H 08/21/17 05:28 Creatinine 9.95 mg/dL (0.70-1.30) H 08/21/17 05:28 Est GFR ( Amer) 8 (> 60) L 08/21/17 05:28 Est GFR (Non-Af Amer) 6 (> 60) L 08/21/17 05:28 POC Glucose 100 (58-89) H 08/21/17 03:36 Calculated Osmolality 304 (280-300) H 08/21/17 05:28 Calcium 5.2 mg/dL (8.6-10.3) L* 08/21/17 05:28 Venous Ioniz Calcium 0.62 mmol/L (1.15-1.35) L 08/19/17 03:55 Phosphorus 8.3 mg/dL (2.7-4.5) H 08/21/17 05:28 AST 1460 Units/L (13-39) H 08/21/17 05:28 ALT 76 Units/L (7-52) H 08/21/17 05:28 Creatine Kinase > 78832 Units/L (30-223) H 08/21/17 05:28 Troponin I 5.76 ng/mL (< 0.04) H* 08/18/17 10:35 Serum Total Protein 4.9 g/dL (6.4-8.9) L 08/21/17 05:28 Albumin 2.4 g/dL (3.5-5.7) L 08/21/17 05:28 Albumin/Globulin Ratio 1.0 (1.1-2.2) L 08/21/17 05:28 Urine Color Red (Yellow) A 08/15/17 22:14 Urine Clarity Cloudy (Clear) A 08/15/17 22:14 Urine Protein 100 mg/dL (Neg-Trace) H 08/15/17 22:14 Urine Blood Large (Negative) H 08/15/17 22:14 Ur Leukocyte Esterase Small (Negative) H 08/15/17 22:14 Urine Microscopic RBC TNTC per hpf (0-3) H 08/15/17 22:14 Salicylates < 5.0 mg/dL (15.0-30.0) L 08/15/17 19:41 Acetaminophen < 1.0 mcg/mL (10-30) L 08/15/17 19:41 Ur Amphetamines Screen Positive ng/mL (Vmcuvo=6908) H 08/15/17 22:14 U Benzodiazepines Scrn Positive ng/mL (Rljhwt=690) H 08/15/17 22:14 U Marijuana (THC) Screen Positive ng/mL (Cutoff = 50) H 08/15/17 22:14 - VTE Documentation of Mechanical Device: Intermittent pneumatic compression device Consult Discharge Plan - Plan Referrals: NONE,PCP [Primary Care Provider] -
[2017-08-21] MEDS: Chlorhexidine Rinse 15 ML MOUTHWASH MM SCH ×2 (08:02→20:25)
[2017-08-21] MEDS: Pantoprazole 40 MG VIAL IVP SCH (08:02)
[2017-08-21] MEDS: Phenylephrine 20 MG in D5% in Water 500 ML IVC SCH ×3 (08:08→22:13)
--- NOTE | 2017-08-21 09:15 | Nephrology Progress Note ---
Date of Encounter: 08/21/17 Time of Encounter: 08:40 - Assessment and Plan (1) HALIMA (acute kidney injury) Current Visit: Yes Status: Acute HALIMA/rabdo/hyperkalemia in setting of drug overdose, hypotension. 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 Worsening renal fct, anuric. HD today, orders given. Recommend consulting ID regarding possible infective endocarditis and least nephrotoxic Atb coverage. Maintain araujo catheter, I&O. Will continue to monitor. Do not replace Calcium unless symptomatic arrythmia, tetany. Calcium sequestered in muscle and will release as muscle heals. Subjective Principal diagnosis: Overdose Interval history: Intubated, sedated. FIO2 .30 p5. S/P right BKA. Anuric. Objective - Vital Signs Vital signs: Vital Signs Temp Pulse Resp BP Pulse Ox 08/21/17 07:40 98.8 F 08/21/17 07:00 15 100 08/21/17 06:12 15 100 08/21/17 06:00 118 14 107/55 100 08/21/17 05:33 101 F H 08/21/17 05:00 121 14 112/54 100 08/21/17 04:00 122 14 120/62 100 08/21/17 03:41 15 100 08/21/17 03:33 102.5 F H 08/21/17 03:00 124 14 119/64 100 08/21/17 02:00 126 14 127/65 100 08/21/17 01:25 15 100 08/21/17 01:00 123 14 103/68 99 08/21/17 00:26 121 08/21/17 00:00 100.5 F H 121 14 116/68 98 08/20/17 23:30 118 14 113/63 99 08/20/17 23:28 14 120/65 99 08/20/17 23:00 117 14 120/65 99 08/20/17 22:30 112 14 129/76 100 08/20/17 22:15 113 14 125/72 98 08/20/17 22:00 113 14 125/71 99 08/20/17 21:45 112 14 106/54 98 08/20/17 21:34 99.5 F 108 14 87/41 100 08/20/17 18:00 103 16 107/59 99 08/20/17 17:16 17 99 08/20/17 17:00 105 15 102/55 99 08/20/17 16:00 100.3 F H 107 15 111/60 78 08/20/17 15:42 100.3 F H 08/20/17 15:00 105 16 96/54 97 08/20/17 14:00 107 16 108/54 99 08/20/17 13:27 15 94 08/20/17 13:00 109 15 112/63 96 08/20/17 12:00 99.9 F H 112 15 116/64 98 08/20/17 11:26 99.9 F H 08/20/17 11:02 19 98 08/20/17 11:00 105 14 98/55 97 08/20/17 10:15 14 99 08/20/17 10:00 104 14 102/56 97 08/20/17 09:43 105 15 109/67 100 Intake and Output 08/20/17 08/21/17 08/21/17 23:59 07:59 15:59 Intake Total 720 / 720 340 / 340 Output Total 725 / 725 25 / 25 Balance -5 / -5 315 / 315 Intake: IV Fluids 720 / 720 340 / 340 PRECEDEX Premix 400 mcg In 100 200 / 200 200 / 200 ml @ 0.7 MCG/KG/HR 17.133 mls/ hr IVC .[id number] [facility] Rx#: [id number] FentaNYL (PF) 1,000 MCG In 0.9 200 / 200 100 / 100 % Sodium Chloride 80 ML @ 50 MCG/HR 5 mls/hr IVC CONT [facility] Rx #:[id number] Versed 50 MG In 0.9 % Sodium 100 / 100 40 / 40 Chloride 90 ML @ 2 MG/HR 4 mls/ hr IVC CONT [facility] Rx#:[id number] Phenylephrine 20 MG In Dextrose 120 / 120 5% 500 ML @ 40 MCG/MIN 60.24 mls/hr IVC CONT [facility] Rx#: [id number] Zosyn 3.375 GM In 0.9 % Sodium 100 / 100 Chloride 100 ML @ 25 mls/hr IVPB Q12HR [facility] Rx#:[id number] Oral 0 / 0 Output: Estimated Blood Loss 150 / 150 Rectal Tube 0 / 0 0 / 0 Catheter 0 / 0 25 / 25 Gastric Drainage 475 / 475 0 / 0 Wound Drainage 100 / 100 Right Lower Leg 100 / 100 Other: Weight 87.9 kg Blood Glucose* 82 91 Patient Weight 08/21/17 23:59 Weight 87.9 kg - General Appearance General appearance: Present: well-developed, well-nourished, appears started age EENT: Present: mucous membranes moist Neck: Present: no JVD Respiratory: Present: clear Cardiology: Present: edema, regular rate, rapid rhythm Additional Comments: mild generalized Gastrointestinal: Present: absent bowel sounds Integumentary: Present: warm and dry - Lab 08/21/17 04:00 08/21/17 05:28 Most recent lab results ABG pH 7.33 pH Units (7.32-7.45) 08/21/17 04:48 ABG pCO2 46 mmHg (35-45) H 08/21/17 04:48 ABG pO2 81 mmHg (85-104) L 08/21/17 04:48 ABG HCO3 24 mEq/L (21-27) 08/21/17 04:48 ABG O2 Saturation 95 % (95-98) 08/21/17 04:48 Calcium 5.2 mg/dL (8.6-10.3) L* 08/21/17 05:28 Phosphorus 8.3 mg/dL (2.7-4.5) H 08/21/17 05:28 Magnesium 2.2 mg/dL (1.6-2.6) 08/20/17 08:10 - VTE Documentation of Mechanical Device: Intermittent pneumatic compression device Consult Discharge Plan - Plan Referrals: NONE,PCP [Primary Care Provider] -
[2017-08-21] MEDS ORDERED: *HR* Heparin 10,000 UNIT/10 ML VIAL IV PRN (09:20)
[2017-08-21] MEDS ORDERED: 0.9 % Sodium Chloride 250 ML IVC PRN (09:20)
[2017-08-21] MEDS ORDERED: 0.9 % Sodium Chloride 1,000 ML PRIME SCH (09:30)
[2017-08-21] MEDS ORDERED: 0.9 % Sodium Chloride 2,000 ML ONE (13:01)
[2017-08-21 21:43] VITALS: BP 86/52
--- NOTE | 2017-08-22 18:00 | Discharge Summary ---
<Ayad Trivedi - Last Filed: 08/22/17 18:39> Date of Encounter: 08/22/17 Time of Encounter: 23:40 - Discharge Diagnosis (1) Respiratory failure Priority: Primary Status: Acute Qualifiers: Chronicity: acute Respiratory failure complication: unspecified whether with hypoxia or hypercapnia Qualified Code(s): J96.00 - Acute respiratory failure, unspecified whether with hypoxia or hypercapnia (2) Sepsis Priority: Primary Status: Acute Qualifiers: Sepsis type: sepsis due to unspecified organism Qualified Code(s): A41.9 - Sepsis, unspecified organism (3) Rhabdomyolysis Priority: Primary Status: Acute Qualifiers: Rhabdomyolysis type: non-traumatic Qualified Code(s): M62.82 - Rhabdomyolysis (4) Complete below knee amputation of right lower extremity Priority: Primary Status: Acute Qualifiers: Encounter type: initial encounter Qualified Code(s): S88.111A - Complete traumatic amputation at level between knee and ankle, right lower leg, initial encounter (5) Compartment syndrome of right lower extremity Priority: Primary Status: Acute Qualifiers: Encounter type: subsequent encounter Qualified Code(s): T79.A21D - Traumatic compartment syndrome of right lower extremity, subsequent encounter (6) Overdose by amphetamine Priority: Primary Status: Acute Qualifiers: Encounter type: initial encounter Injury intent: undetermined intent Qualified Code(s): T43.624A - Poisoning by amphetamines, undetermined, initial encounter (7) Thrombocytopenia Priority: Primary Status: Acute (8) Tachycardia Priority: Primary Status: Acute (9) HALIMA (acute kidney injury) Priority: Primary Status: Acute (10) Lactic acidosis Priority: Primary Status: Resolved (11) Elevated troponin Priority: Secondary Status: Acute (12) DVT prophylaxis Priority: Secondary Status: Acute - Discharge Medications Home Medications: Unable To Obtain [Unable to Obtain] 08/16/17 [History] Allergies/Adverse Reactions: 3 Allergy/AdvReac Type Severity Reaction Status Date / Time No Known Allergies Allergy Verified 05/09/16 04:47 Labs on day of discharge: Labs from last 24 hours 08/21/17 20:00 POC Glucose 120 H Preliminary micro results at discharge 08/18/17 11:01 Blood Culture - Preliminary Central Venous Catheter No growth. 08/18/17 07:43 Blood Culture - Preliminary Peripheral Venipuncture No growth. - Impressions ITS Impressions Echocardiogram 08/15/17 23:47 Impressions: LVEF 35-40%. Global LV systolic dysfunction. Mild left ventricular diastolic dysfunction. Normal right ventricular structure and function. There is a very small, mobile echodensity attached to the anterior tricuspid leaflet that is not well characterized. Recommend considering CHRISTY for improved image quality if clinically appropriate. Mild tricuspid regurgitation. No pulmonary hypertension. Abnormal findings communicated to ICU team. Left Ventricular Wall Motion: Rest Echo Findings The apex, apical inferior, mid inferior, basal inferior, apical anterior, mid anterior, basal anterior, apical septal, mid inferior septal, basal inferior septal, apical lateral, mid anterior lateral, basal anterior lateral, mid anterior septal, mid inferior lateral, basal anterior septal and basal inferior lateral dotson were hypokinetic. Findings: Study Quality * Technically adequate exam. ECG Findings * Sinus tachycardia. Left Ventricle * LVEF 35-40%. * Normal LV size and wall thickness. * Mild left ventricular diastolic dysfunction. Right Ventricle * Normal right ventricular structure and function. Left Atrium * Normal left atrial size. Right Atrium * Normal right atrial size. Aortic Valve * No aortic regurgitation. * Trileaflet aortic valve. * No aortic stenosis. Mitral Valve * Normal mitral valve structure. * No mitral regurgitation. * No mitral stenosis. Tricuspid Valve * Mild tricuspid regurgitation. * Tricuspid valve demonstrates a very small echodensity attached to the anterior leaflet which is not well characterized. * Estimated RA pressure is 3 mmHg. * Estimated RVSP is 32 mmHg. * No pulmonary hypertension. Pulmonic Valve * Pulmonic valve is not well visualized. * No pulmonic stenosis. * Trace pulmonic regurgitation. Pulmonary Artery * Pulmonary artery not well visualized. Interatrial Septum * No evidence of PFO by color Doppler. Aorta * Normally sized aortic root. Pericardium * There is no pericardial effusion present. Guidance Needle Placement Ultrasound 08/16/17 00:00 IMPRESSION: Ultrasound-guided non tunneled dialysis catheter placement as above. D/ / Andrea Estrada MD / Andrea Estrada MD Interpreting Provider: Andrea Estrada MD Insertion Non-Tunneled Catheter 08/16/17 00:00 IMPRESSION: Ultrasound-guided non tunneled dialysis catheter placement as above. D/ / Andrea Estrada MD / Andrea Estrada MD Interpreting Provider: Andrea Estrada MD Chest X-Ray 08/16/17 06:00 IMPRESSION: Clear lungs. D/ / Tommy Malhotra MD / Tommy Malhotra MD Interpreting Provider: Tommy Malhotra MD Retroperitoneum Ultrasound 08/16/17 10:00 IMPRESSION: 1. Echogenic kidneys, compatible with chronic medical renal disease. 2. No hydronephrosis. 3. Nonvisualization of the bladder. D/ / 08/16/2017 11:15:36 Javier Guillen MD / mj Interpreting Provider: Javier Guillen MD Chest X-Ray 08/16/17 13:49 IMPRESSION: 1. New right internal jugular dialysis catheter tip in the lower SVC. No pneumothorax. 2. Otherwise, stable exam. D/ / Clarke Bansal / Clarke Bansal Interpreting Provider: Clarke Bansal Tibia/Fibula X-Ray 08/17/17 09:57 IMPRESSION: 1. No acute osseous abnormality. 2. No focal soft tissue abnormality. D/ / 08/17/2017 11:34:46 Kirk Ramirez MD / ricardo Interpreting Provider: Kirk Ramirez MD Chest X-Ray 08/18/17 06:40 IMPRESSION: Unchanged support devices and clear lungs. D/ / Yonis Butler MD / Yonis Butler MD Interpreting Provider: Yonis Butler MD Abdomen/Pelvis CT 08/18/17 11:30 IMPRESSION: Lines and tubes appear in adequate position. Peribronchial opacities, left greater than right, which is nonspecific. An inflammatory or infectious process is within the differential. Please consider possibility of aspiration. There is a large amount of liquid stool within the colon. No obvious wall thickening of the colon appreciated. Consider the possibility of underlying colitis. No acute intra-abdominal or intrapelvic abnormality noted on limited noncontrast imaging, solid organs or gallbladder. There is a mild amount of edema along the retroperitoneum, pelvis and within the soft tissues. Please correlate with patient's underlying renal, cardiac and liver function. Increased prominence of low attenuation within the musculature of the visualized lower extremity and pelvis. Consider the possibility of underlying myositis. MRI could be useful to further characterize. The findings were sent to the Radiology Results Communication Center at 1:06 pm on 08/18/2017to be communicated to a licensed caregiver. D/ / 08/18/2017 13:16:04 Ivan Tovar MD / [facility] Interpreting Provider: Ivan Tovar MD Chest CT 08/18/17 11:30 IMPRESSION: Lines and tubes appear in adequate position. Peribronchial opacities, left greater than right, which is nonspecific. An inflammatory or infectious process is within the differential. Please consider possibility of aspiration. There is a large amount of liquid stool within the colon. No obvious wall thickening of the colon appreciated. Consider the possibility of underlying colitis. No acute intra-abdominal or intrapelvic abnormality noted on limited noncontrast imaging, solid organs or gallbladder. There is a mild amount of edema along the retroperitoneum, pelvis and within the soft tissues. Please correlate with patient's underlying renal, cardiac and liver function. Increased prominence of low attenuation within the musculature of the visualized lower extremity and pelvis. Consider the possibility of underlying myositis. MRI could be useful to further characterize. The findings were sent to the Radiology Results Communication Center at 1:06 pm on 08/18/2017to be communicated to a licensed caregiver. D/ / 08/18/2017 13:16:04 Ivan Tovar MD / tsering Interpreting Provider: Ivan Tovar MD Echocardiogram Limited Views 08/19/17 08:55 Impressions: LVEF 55-60%. Normal LV chamber size, wall thickness and function. When compared to prior echo, 08/16/2017, LV systolic function has normalized. Left Ventricular Wall Motion: Rest Echo Findings All wall segments showed normal motion. Findings: Study Quality * Technically adequate exam. ECG Findings * Normal sinus rhythm. Right Ventricle * RV is not optimally visualized on this study. Left Ventricle * LVEF 55-60%. * Normal LV chamber size, wall thickness and function. Date of admission: 08/15/17 23:11 Primary care physician: PCP NONE Consults: 08/15/17 23:17 Consult to Pulmonology [CONS] Routine Consulting Provider: Pulm Crit Care & [facility]yer Reason for Consult: Acute resp failure/ Shock Call Completed: Yes 08/16/17 06:12 Consult to Nephrology [CONS] Stat Consulting Provider: Kidney & HTN Spclst NEHA Reason for Consult: Rhabdo, ARF Call Completed: Yes 08/16/17 09:55 Consult to Interpret Exam [CONS] Routine Consulting Provider: Sarthak Garner Consult to Interpret Exam: Interpret EEG 08/16/17 10:26 Consult to Cardiology [CONS] Routine Comment: Consulting Provider: [facility] Reason for Consult: Troponin elevated, possible IE Call Completed: No 08/16/17 11:52 Consult to Interventional Radiology [CONS] Routine Consulting Provider: Radiology Interventional Col[facility] Reason for Consult: temp cath placement today for HD Time Notified: 11:53 Call Completed: Yes 08/16/17 15:45 Consult to Pastoral Services [CONS] Stat Comment: To talk to/console parents. Son in ICU after OD 08/16/17 18:45 Consult to Dialysis [CONS] ONCE 08/17/17 08:05 Consult to Orthopedic Surgery [CONS] Stat Consulting Provider: [facility] Reason for Consult: rule out compartment syndrome Call Completed: Yes 08/17/17 14:00 Consult to Dialysis [CONS] ONCE 08/19/17 10:58 dietary consult [Consult to Nutrition] [CONS] Stat Comment: Consulting Provider: NUTRITION Reason for Dietary Consult: Tube Feed Start & Manage 08/19/17 11:45 Consult to Dialysis [CONS] ONCE 08/21/17 07:05 Consult to Web Development Director [CONS] Stat Reason for SW Consult: PER FAMILY REQUEST DUE TO INSURANCE COMPLICATIONS. 08/21/17 09:30 Consult to Dialysis [CONS] ONCE Anticipated date of discharge: 08/21/17 - Patient Status Disposition: Transfer Critical Access Hosp Condition: Critical Overall status at discharge: patient is not back to baseline - Discharge Instructions Follow Up With: NONE,PCP [Primary Care Provider] - - Diet and Activity Activity: as per physical therapy, other Diet: other (npo) - Hospital Course Hospital course: Mr. Jaramillo is a 27 year old male arrives to [facility] emergency department on 08/15/17 after becoming unresponsive in the general population at nursing home facility. The patient was apparently arrested earlier today on a "drug bust". He was transported to nursing home where an inmate possibly noted that he ingested some substance. He was found to be altered from his baseline. He was transported to the emergency department for evaluation. Upon arrival to the emergency Department [facility] the patient was noted to have a GCS of 3 and was subsequently intubated. The patient was noted to be tachycardic, hyperthermic, hypotensive and unresponsive. Resuscitation efforts began at that point. Subsequently a right IJ CVC was placed in the emergency department as well as a Baird that was needed to be placed by urology due to inability to have fully passed by ED staff. The patient lab work revealed a leukocytosis, lactic acidosis, elevated troponin, elevated CPK. The patient was acidotic on ABG. The patient was also noted to be hyperthermic with an elevated body temperature. The patient was administered 4 L of IV fluid normal saline in the emergency department, as well as IV Tylenol. The patient is currently on a maintenance of half normal saline at the double maintenance dose. The patient was noted to have an acute kidney injury as well. The patient also had concerns per ED staff for infectious etiology so the patient was started on IV antibiotics and acyclovir as well as steroids for possible meningitis. There is a likely other alternative given the likelihood of ingestion and drug screen urinalysis that revealed amphetamines. The patient's pupils were dilated and poorly reactive to light. Chest x-ray, urinalysis demonstrate no infectious etiology. EKG demonstrates no ST elevation. The patient has received multiple doses of benzodiazepines in the emergency department and is currently sedated with low dose propofol drip. Since admission, acyclovir was discontinued due to acute kidney injury and temporary HDC was placed on 08/16/17. TTE on 08/16/17 showed EF of 35-40%, global LV systolic dysfunction, mild LV diastolic dysfunction, very small mobile echodensity attached to the anterior tricuspid leaflet is not well characterized. Mild TR. Subsequent CHRISTY on 08/16/17 demonstrates normal tricuspid valve structure without leaflet vegetation. There is no evidence of intracardiac vegetation. EEG on 08/16/17 demonstrates abnormal findings consistent with severe generalized encephalopathy. Retroperitoneal ultrasound on 08/16/16 demonstrates echogenic kidneys with no hydronephrosis. The following morning on 08/17/17, patient while on sedation was repeatedly moving his right lower extremity and appeared agitated. Examination of the right lower extremity at approximately 0800 revealed findings concerning for acute compartment syndrome of the right lower extremity that is intermittently pulseless. Orthopedic surgery was immediately consulted in the case was discussed with Dr. Joy. Orthopedic surgery evaluated the patient within 30 minutes of phone call and patient was found to have elevated pressures in all 3 lower extremity compartments. Tib-fib x-rays demonstrate no acute osseous abnormalities. Emergent dual incision fasciotomy was performed subsequently in the early afternoon. Postoperative course involved bump in leukocytosis and consistent tachycardia in the 130s. Chest CT and abdominal/ pelvic CT were unremarkable. WBC did drop to 18.7 on day of discharge. Venous duplex studies of the bilateral lower extremities were unremarkable. Arterial blood gas remained stable while on the ventilator support. Patient did remain hemodynamically stable without any pressor support. He did remain afebrile until 08/21/17 with a temp of 100.9. Patient continued to have worsening acute kidney injury despite hemodialysis along with improvement in lactic acid. Creatinine went up to 9.95 on day of discharge but did undergo hemodialysis prior to transport. Lactic acid dropped to 0.8, CPK remained greater than 20, 000 and acute liver injury significantly improved from AST greater than 3000, ALT 500 down to AST 1460 and ALT 76. Blood cultures drawn on 08/15/17 showed no growth and repeat blood cultures drawn on 08/18/17 showed no growth to date that are not finalized yet. Patient received 2 days of meropenem, 2 days of ceftriaxone, 4 days of vancomycin and 5 days of Zosyn After 3 days of soft tissue rest to his right lower extremity after emergent fasciotomy on 08/17/17, patient was taken back to the operating room on 08/20/17 for possible closure of fasciotomy incisions. Unfortunately, patient was found to have severe multicompartment muscular necrosis after compartment syndrome and orthopedic surgery performed a below the knee amputation to his right lower extremity. There are no postoperative complications and patient returned to the ICU in stable condition. Surgical specimens are still pending at this time. The following day his mother requested transfer of care to [facility] for further treatment recommendations and interventions if necessary. Transfer was accepted and he was discharged in critical condition on 08/21/17 at 2340 per [facility]. All questions and concerns were addressed with the family present. - Time Spent with Patient Total time spent providing and/or coordinating discharge services: Physical Examination General appearance: no acute distress Eyes: nonicteric ENT: oropharynx moist Effort: normal Inspection: normal Auscultation: bilateral: clear Cardiovascular: irregular rhythm (tachycardia) Gastrointestinal: normoactive bowel sounds, non-distended Integumentary: other (Right lower extremity: Dressing was removed and changed. Of note, incision was clean dry and intact. Shashi are present. No erythema or drainage. No evidence of dehiscence.) Extremities: other (See above) Musculoskeletal: other (See above) unable to assess due to mental status - VTE Documentation of Mechanical Device: Intermittent pneumatic compression device <Noy Simon - Last Filed: 08/22/17 19:03> Date of Encounter: 08/22/17 Labs on day of discharge: Labs from last 24 hours 08/21/17 20:00 POC Glucose 120 H Preliminary micro results at discharge 08/18/17 11:01 Blood Culture - Preliminary Central Venous Catheter No growth. 08/18/17 07:43 Blood Culture - Preliminary Peripheral Venipuncture No growth. - Impressions ITS Impressions Echocardiogram 08/15/17 23:47 Impressions: LVEF 35-40%. Global LV systolic dysfunction. Mild left ventricular diastolic dysfunction. Normal right ventricular structure and function. There is a very small, mobile echodensity attached to the anterior tricuspid leaflet that is not well characterized. Recommend considering CHRISTY for improved image quality if clinically appropriate. Mild tricuspid regurgitation. No pulmonary hypertension. Abnormal findings communicated to ICU team. Left Ventricular Wall Motion: Rest Echo Findings The apex, apical inferior, mid inferior, basal inferior, apical anterior, mid anterior, basal anterior, apical septal, mid inferior septal, basal inferior septal, apical lateral, mid anterior lateral, basal anterior lateral, mid anterior septal, mid inferior lateral, basal anterior septal and basal inferior lateral dotson were hypokinetic. Findings: Study Quality * Technically adequate exam. ECG Findings * Sinus tachycardia. Left Ventricle * LVEF 35-40%. * Normal LV size and wall thickness. * Mild left ventricular diastolic dysfunction. Right Ventricle * Normal right ventricular structure and function. Left Atrium * Normal left atrial size. Right Atrium * Normal right atrial size. Aortic Valve * No aortic regurgitation. * Trileaflet aortic valve. * No aortic stenosis. Mitral Valve * Normal mitral valve structure. * No mitral regurgitation. * No mitral stenosis. Tricuspid Valve * Mild tricuspid regurgitation. * Tricuspid valve demonstrates a very small echodensity attached to the anterior leaflet which is not well characterized. * Estimated RA pressure is 3 mmHg. * Estimated RVSP is 32 mmHg. * No pulmonary hypertension. Pulmonic Valve * Pulmonic valve is not well visualized. * No pulmonic stenosis. * Trace pulmonic regurgitation. Pulmonary Artery * Pulmonary artery not well visualized. Interatrial Septum * No evidence of PFO by color Doppler. Aorta * Normally sized aortic root. Pericardium * There is no pericardial effusion present. Guidance Needle Placement Ultrasound 08/16/17 00:00 IMPRESSION: Ultrasound-guided non tunneled dialysis catheter placement as above. D/ / Andrea Estrada MD / Andrea Estrada MD Interpreting Provider: Andrea Estrada MD Insertion Non-Tunneled Catheter 08/16/17 00:00 IMPRESSION: Ultrasound-guided non tunneled dialysis catheter placement as above. D/ / Andrea Estrada MD / Andrea Estrada MD Interpreting Provider: Andrea Estrada MD Chest X-Ray 08/16/17 06:00 IMPRESSION: Clear lungs. D/ / Tommy Malhotra MD / Tommy Malhotra MD Interpreting Provider: Tommy Malhotra MD Retroperitoneum Ultrasound 08/16/17 10:00 IMPRESSION: 1. Echogenic kidneys, compatible with chronic medical renal disease. 2. No hydronephrosis. 3. Nonvisualization of the bladder. D/ / 08/16/2017 11:15:36 Javier Guillen MD / mj Interpreting Provider: Javier Guillen MD Chest X-Ray 08/16/17 13:49 IMPRESSION: 1. New right internal jugular dialysis catheter tip in the lower SVC. No pneumothorax. 2. Otherwise, stable exam. D/ / Clarke Bansal / Clarke Bansal Interpreting Provider: Clarke Bansal Tibia/Fibula X-Ray 08/17/17 09:57 IMPRESSION: 1. No acute osseous abnormality. 2. No focal soft tissue abnormality. D/ / 08/17/2017 11:34:46 Kirk Ramirez MD / mary Interpreting Provider: Kirk Ramirez MD Chest X-Ray 08/18/17 06:40 IMPRESSION: Unchanged support devices and clear lungs. D/ / Yonis Butler MD / Yonis Butler MD Interpreting Provider: Yonis Butler MD Abdomen/Pelvis CT 08/18/17 11:30 IMPRESSION: Lines and tubes appear in adequate position. Peribronchial opacities, left greater than right, which is nonspecific. An inflammatory or infectious process is within the differential. Please consider possibility of aspiration. There is a large amount of liquid stool within the colon. No obvious wall thickening of the colon appreciated. Consider the possibility of underlying colitis. No acute intra-abdominal or intrapelvic abnormality noted on limited noncontrast imaging, solid organs or gallbladder. There is a mild amount of edema along the retroperitoneum, pelvis and within the soft tissues. Please correlate with patient's underlying renal, cardiac and liver function. Increased prominence of low attenuation within the musculature of the visualized lower extremity and pelvis. Consider the possibility of underlying myositis. MRI could be useful to further characterize. The findings were sent to the Radiology Results Communication Center at 1:06 pm on 08/18/2017to be communicated to a licensed caregiver. D/ / 08/18/2017 13:16:04 Ivan Tovar MD / tsering Interpreting Provider: Ivan Tovar MD Chest CT 08/18/17 11:30 IMPRESSION: Lines and tubes appear in adequate position. Peribronchial opacities, left greater than right, which is nonspecific. An inflammatory or infectious process is within the differential. Please consider possibility of aspiration. There is a large amount of liquid stool within the colon. No obvious wall thickening of the colon appreciated. Consider the possibility of underlying colitis. No acute intra-abdominal or intrapelvic abnormality noted on limited noncontrast imaging, solid organs or gallbladder. There is a mild amount of edema along the retroperitoneum, pelvis and within the soft tissues. Please correlate with patient's underlying renal, cardiac and liver function. Increased prominence of low attenuation within the musculature of the visualized lower extremity and pelvis. Consider the possibility of underlying myositis. MRI could be useful to further characterize. The findings were sent to the Radiology Results Communication Center at 1:06 pm on 08/18/2017to be communicated to a licensed caregiver. D/ / 08/18/2017 13:16:04 Ivan Tovar MD / tsering Interpreting Provider: Ivan Tovar MD Echocardiogram Limited Views 08/19/17 08:55 Impressions: LVEF 55-60%. Normal LV chamber size, wall thickness and function. When compared to prior echo, 08/16/2017, LV systolic function has normalized. Left Ventricular Wall Motion: Rest Echo Findings All wall segments showed normal motion. Findings: Study Quality * Technically adequate exam. ECG Findings * Normal sinus rhythm. Right Ventricle * RV is not optimally visualized on this study. Left Ventricle * LVEF 55-60%. * Normal LV chamber size, wall thickness and function. Date of admission: 08/15/17 23:11 Primary care physician: PCP NONE Consults: 08/15/17 23:17 Consult to Pulmonology [CONS] Routine Consulting Provider: Pulm Crit Care & Sleep Sawyer Reason for Consult: Acute resp failure/ Shock Call Completed: Yes 08/16/17 06:12 Consult to Nephrology [CONS] Stat Consulting Provider: Kidney & HTN Spclst NEHA Reason for Consult: Rhabdo, ARF Call Completed: Yes 08/16/17 09:55 Consult to Interpret Exam [CONS] Routine Consulting Provider: Sarthak Garner Consult to Interpret Exam: Interpret EEG 08/16/17 10:26 Consult to Cardiology [CONS] Routine Comment: Consulting Provider: Cardiology [place] Reason for Consult: Troponin elevated, possible IE Call Completed: No 08/16/17 11:52 Consult to Interventional Radiology [CONS] Routine Consulting Provider: Radiology Interventional [facility] Reason for Consult: temp cath placement today for HD Time Notified: 11:53 Call Completed: Yes 08/16/17 15:45 Consult to Pastoral Services [CONS] Stat Comment: To talk to/console parents. Son in ICU after OD 08/16/17 18:45 Consult to Dialysis [CONS] ONCE 08/17/17 08:05 Consult to Orthopedic Surgery [CONS] Stat Consulting Provider: [facility] Reason for Consult: rule out compartment syndrome Call Completed: Yes 08/17/17 14:00 Consult to Dialysis [CONS] ONCE 08/19/17 10:58 dietary consult [Consult to Nutrition] [CONS] Stat Comment: Consulting Provider: NUTRITION Reason for Dietary Consult: Tube Feed Start & Manage 08/19/17 11:45 Consult to Dialysis [CONS] ONCE 08/21/17 07:05 Consult to Web Development Director [CONS] Stat Reason for SW Consult: PER FAMILY REQUEST DUE TO INSURANCE COMPLICATIONS. 08/21/17 09:30 Consult to Dialysis [CONS] ONCE - Hospital Course Hospital course: I agree with the above Hospital course documented by the resident physician . - Time Spent with Patient Total time spent providing and/or coordinating discharge services: Greater than 30 minutes (In coardinating care in hospital transfer)
[2017-08-23 13:50] LABS: ANA IgG by ELISA NONE DETECTED (None Detected)
== END 2017-08-21 23:40 | disposition other institution (70) | DRG 907 ==
LOC: EMEROO 19:19 → ICNU 23:11
PROVIDERS: ADMIT Internal Medicine; ATTEND Internal Medicine
PROC: ORTFASC (2017-08-17 09:35)